=== PATIENT | male | born 1945 | race Hispanic/Latino ===

== ENCOUNTER 2017-05-18 11:24 | Emergency (ER) | payer MEDICARE, BC ==
[2017-05-18 11:49] VITALS: BMI 25.8
[2017-05-18 12:09] VITALS: RESP 18; TEMP 98.2; O2SAT 99
--- NOTE | 2017-05-18 12:11 | ED PDOC ---
Arrival/HPI - General Chief Complaint: Trauma Time Seen by Provider: 05/18/17 11:27 Historian: Patient - History of Present Illness Narrative History of Present Illness (Text): 05/18/17 12:11 A 72 year old male to the emergency department after fall complaining of tremors. Patient states he fell and tripped outside, missed the sidewalk. Patient reports he has been taking new psychiatric medication, which causes tremors. Reports to taking Klonopin medication for these tremors. Denies any loss of consciousness. Denies any pain, fever, headache or any other complaints at this time. Patient lives at home alone. Symptom Onset: Sudden Symptom Course: Unchanged Activities at Onset: Light Context: Street Associated Symptoms (Text): none Past Medical History - Provider Review Nursing Documentation Reviewed: Yes - Infectious Disease Hx of Infectious Diseases: None - Tetanus Immunization Tetanus Immunization: Unknown - Cardiac Hx Hypertension: Yes - Pulmonary Hx Respiratory Disorders: No - Neurological Hx Parkinson's Disease: Yes - HEENT Hx HEENT Disorder: No - Renal Hx Renal Disorder: No - Endocrine/Metabolic Hx Endocrine Disorders: No - Hematological/Oncological Hx Blood Disorders: No - Integumentary Hx Dermatological Disorder: No - Musculoskeletal/Rheumatological Hx Falls: No - Gastrointestinal Hx Gastrointestinal Disorders: No - Genitourinary/Gynecological Hx Genitourinary Disorders: No - Psychiatric Hx Depression: Yes Hx Substance Use: No - Anesthesia Hx Anesthesia: No - Suicidal Assessment Feels Threatened In Home Enviroment: No Family/Social History - Physician Review Nursing Documentation Reviewed: Yes Family/Social History: No Known Family HX Smoking Status: Former Smoker Hx Alcohol Use: No Hx Substance Use: No Hx Substance Use Treatment: No Allergies/Home Meds Allergies/Adverse Reactions: Allergies chlorpromazine [From Thorazine] Allergy (Verified 05/18/17 11:50) REDNESS shaking lamotrigine Allergy (Verified 05/18/17 11:50) RASH THORAZINE Allergy (Severe, Uncoded 09/09/12 16:47) SHAKING Home Medications: Home Meds Medication Instructions Recorded Confirmed ARIPiprazole [Abilify] 1 tab PO HS 05/18/17 05/18/17 Benztropine [Cogentin] 1 tab PO BID 05/18/17 05/18/17 Bupropion HCl [Bupropion Xl] 300 mg PO DAILY 05/18/17 05/18/17 FLUoxetine [Prozac] 1 tab PO DAILY 05/18/17 05/18/17 Simvastatin [Zocor] 1 tab PO DAILY 05/18/17 05/18/17 Valsartan/Hydrochlorothiazide 1 tab PO DAILY 05/18/17 05/18/17 [Diovan Hct 320-25 mg Tablet] amLODIPine [Norvasc] 1 tab PO DAILY 05/18/17 05/18/17 clonazePAM [clonAZEPAM] 1 tab PO BID 05/18/17 05/18/17 Review of Systems - Physician Review All systems were reviewed & negative as marked: Yes - Review of Systems Constitutional: absent: Fevers Neurological: Other (tremor). absent: Headache Physical Exam Vital Signs Reviewed: Yes Vital Signs Temp Pulse Resp BP Pulse Ox 05/18/17 14:02 94 H 18 118/76 99 05/18/17 11:26 98.2 F 101 H 18 124/68 99 Appearance: Positive for: Comfortable, Other (resting tremor) Pain Distress: None Mental Status: Positive for: Alert and Oriented X 3 - Systems Exam Head: Present: Atraumatic, Normocephalic Pupils: Present: PERRL Extroacular Muscles: Present: EOMI Conjunctiva: Present: Normal Mouth: Present: Moist Mucous Membranes Neck: Present: Normal Range of Motion Respiratory/Chest: Present: Clear to Auscultation, Good Air Exchange. No: Respiratory Distress, Accessory Muscle Use Cardiovascular: Present: Regular Rate and Rhythm, Normal S1, S2. No: Murmurs Abdomen: Present: Normal Bowel Sounds. No: Tenderness, Distention, Peritoneal Signs Back: Present: Normal Inspection Upper Extremity: Present: Normal Inspection. No: Cyanosis, Edema Lower Extremity: Present: Normal Inspection. No: Edema Neurological: Present: GCS=15, CN II-XII Intact, Speech Normal, Other (resting tremor) Skin: Present: Warm, Dry, Normal Color. No: Rashes Psychiatric: Present: Alert, Oriented x 3, Normal Insight, Normal Concentration Medical Decision Making ED Course and Treatment: 05/18/17 12:08 Impression: A 72 year old male s/p fall with tremors. Plan: -- Klonopin -- Reassess and disposition Progress Notes: Patient requesting dose of Klonopin and to be discharged home. Offered multiple times lab work and admission, since he lives at home alone, patient refuses. requested pt to get pt eval, for gait dysfunction. he contines to decline. tremores improved s/p klonapin 05/18/17 12:21 Leaving Against Medical Advice (AMA): The patient is choosing to leave against medical advice. I have personally explained to the patient that choosing to do so may result in permanent bodily harm or . I have discussed at great length that without further evaluation and monitoring there may be unforeseen circumstances and/or deterioration causing permanent bodily harm or as a result of their choice. The patient is alert, oriented, and shows the mental capacity to make clear decisions regarding the patients health care at this time. The patient continues to wish to leave against medical advice. The patient has been advised that they should return to the emergency room immediately if they change their mind at any time, or if their condition begins to change or worsen in any way. 05/18/17 15:09 - Medication Orders Current Medication Orders: Discontinued Medications Clonazepam (Klonopin) 1 mg PO STAT STA PRN Reason: Protocol Stop: 05/18/17 11:54 Last Admin: 05/18/17 12:11 Dose: 1 mg - Scribe Statement The provider has reviewed the documentation as recorded by the Oliver Evans Provider Scribe Attestation: All medical record entries made by the Santoshibgaurang were at my direction and personally dictated by me. I have reviewed the chart and agree that the record accurately reflects my personal performance of the history, physical exam, medical decision making, and the department course for this patient. I have also personally directed, reviewed, and agree with the discharge instructions and disposition. Disposition/Present on Arrival - Present on Arrival Any Indicators Present on Arrival: No History of DVT/PE: No History of Uncontrolled Diabetes: No Urinary Catheter: No History of Decub. Ulcer: No History Surgical Site Infection Following: None - Disposition Have Diagnosis and Disposition been Completed?: Yes Diagnosis: Fall, Tremor Disposition: AGAINST MEDICAL ADVICE Disposition Time: 02:00 Condition: UNKNOWN Discharge Instructions (ExitCare): Fall Prevention for Older Adults (GEN), Against Medical Advice (ED) Additional Instructions: you are declining any observation in the hospital, imaging, labs work. you are able to return to any er with any concern at any point Referrals: Preston Branch MD [Primary Care Provider] - Follow up with primary Forms: [employer] (Vietnamese)
[2017-05-18 14:03] VITALS: BP 118/76; PULSE 94
== END 2017-05-18 14:03 | disposition left against medical advice (07) ==
LOC: ED 11:24
DX: R25.1 Tremor, unspecified (principal); W01.0XXA Fall on same level from slipping, tripping and stumbling without subsequent striking against object, initial encounter; I10 Essential (primary) hypertension; Z87.891 Personal history of nicotine dependence; G20 Parkinson's disease

== ENCOUNTER 2017-05-23 12:53 | Inpatient (IN) | payer MEDICARE, BC ==
[2017-05-23 12:54] VITALS: BMI 25.8
[2017-05-23] MEDS ORDERED: Sodium Chloride 0.9% 1,000 ML IV STA ×3 (13:37→14:43)
[2017-05-23 13:50] LABS: VENOUS BLOOD GAS BASE EXCESS 3.1 mmol/L (0.0-2.0); VENOUS BLOOD GAS PO2 30 mm/Hg (30-55); VENOUS BLOOD PH 7.34 (7.32-7.43)
[2017-05-23 13:51] LABS: BASO # 0.03 K/mm3 (0.0-2.0); BASO % 0.1 % (0.0-3.0); EOS # 0.1 (0.0-0.7); EOS % 0.2 % (1.5-5.0); GRAN # 21.32 (1.4-6.5); GRAN % 80.1 % (50.0-68.0); HEMOGLOBIN 14.7 g/dL (14.0-18.0); LYMPH # 3.5 (1.2-3.4); LYMPH % 13.1 % (22.0-35.0); MEAN CELL VOLUME 102.9 fl (80.0-105.0); MEAN CORPUSCULAR HEMOGLOBIN 33.3 pg (25.0-35.0); MEAN CORPUSCULAR HGB CONC 32.3 g/dl (31.0-37.0); MEAN PLATELET VOLUME 11.8 fl (7.0-11.0); MONO # 1.7 (0.1-0.6); MONO % 6.5 % (1.0-6.0); RBC 4.42 10^6/uL (3.5-6.1); RED CELL DISTRIBUTION WIDTH 13.9 % (11.5-14.5)
[2017-05-23 14:01] LABS: ALT/SGPT 63 U/L (7-56); AST/SGOT 59 U/L (17-59); BLOOD UREA NITROGEN 78 mg/dL (7-21); CALCIUM 9.4 mg/dL (8.4-10.5); GFR AFRICAN-AMERICAN 56; GFR NON-AFRICAN AMERICAN 46; MAGNESIUM 2.9 mg/dL (1.7-2.2); WHITE BLOOD COUNT 26.3 10^3/ul (4.5-11.0)
--- NOTE | 2017-05-23 14:06 | ED PDOC ---
Arrival/HPI - General Chief Complaint: Trauma Time Seen by Provider: 05/23/17 13:02 Historian: Patient - History of Present Illness Narrative History of Present Illness (Text): 05/23/17 13:55 A 72 year old male, whose past medical history includes hypertension, chronic schizoprhenia, and depression, brought in by EMS. Patient was found at home on the floor by neighbor. Patient reports he has been on the floor for 3 days and is uncertain why he was unable to get up. Experiencing dehydration. Known to have a psychiatric history as well. Limited HPI and ROS due to patient being a poor historian. he is asking for clonipin which he says he takes normally. PMD: Dr. Branch Past Medical History - Provider Review Nursing Documentation Reviewed: Yes - Infectious Disease Hx of Infectious Diseases: None - Tetanus Immunization Tetanus Immunization: Unknown - Cardiac Hx Hypertension: Yes - Pulmonary Hx Respiratory Disorders: No - Neurological Hx Parkinson's Disease: Yes - HEENT Hx HEENT Disorder: No - Renal Hx Renal Disorder: No - Endocrine/Metabolic Hx Endocrine Disorders: No - Hematological/Oncological Hx Blood Disorders: No - Integumentary Hx Dermatological Disorder: No - Musculoskeletal/Rheumatological Hx Falls: No - Gastrointestinal Hx Gastrointestinal Disorders: No - Genitourinary/Gynecological Hx Genitourinary Disorders: No - Psychiatric Hx Anxiety: Yes Hx Depression: Yes Hx Substance Use: No - Anesthesia Hx Anesthesia: No - Suicidal Assessment Feels Threatened In Home Enviroment: No Family/Social History - Physician Review Nursing Documentation Reviewed: Yes Family/Social History: No Known Family HX Smoking Status: Former Smoker Hx Alcohol Use: No Hx Substance Use: No Hx Substance Use Treatment: No Allergies/Home Meds Allergies/Adverse Reactions: Allergies chlorpromazine [From Thorazine] Allergy (Verified 05/18/17 11:50) REDNESS shaking lamotrigine Allergy (Verified 05/18/17 11:50) RASH THORAZINE Allergy (Severe, Uncoded 09/09/12 16:47) SHAKING Home Medications: Home Meds Medication Instructions Recorded Confirmed ARIPiprazole [Abilify] 1 tab PO HS 05/18/17 05/23/17 Benztropine [Cogentin] 1 tab PO BID 05/18/17 05/23/17 Bupropion HCl [Bupropion Xl] 300 mg PO DAILY 05/18/17 05/23/17 FLUoxetine [Prozac] 1 tab PO DAILY 05/18/17 05/23/17 Simvastatin [Zocor] 1 tab PO DAILY 05/18/17 05/23/17 Valsartan/Hydrochlorothiazide 1 tab PO DAILY 05/18/17 05/23/17 [Diovan Hct 320-25 mg Tablet] amLODIPine [Norvasc] 1 tab PO DAILY 05/18/17 05/23/17 clonazePAM [clonAZEPAM] 1 tab PO BID 05/18/17 05/23/17 Review of Systems - Review of Systems Systems not reviewed;Unavailable: Other (poor historian) Physical Exam Vital Signs Reviewed: Yes Vital Signs Temp Pulse Resp BP Pulse Ox 05/23/17 21:40 83 18 116/68 98 05/23/17 20:40 88 16 110/62 96 05/23/17 19:50 95 H 20 118/69 96 05/23/17 18:00 97.6 F 96 H 19 131/74 98 05/23/17 15:23 90 20 134/71 96 05/23/17 15:00 93 H 18 147/102 H 98 05/23/17 13:13 98.6 F 99 H 19 142/75 98 Temperature: Afebrile Blood Pressure: Normal Pulse: Regular Respiratory Rate: Normal Appearance: Positive for: Other (smells of urine, poor hygiene, appears disheveled and dehydrated) Pain Distress: None Mental Status: Positive for: Alert and Oriented X 3, other (patient is a poor historian) - Systems Exam Head: Present: Swelling (periorbital), Other (skin necrosis to right temporal are) Lower Extremity: Present: Other (ecchymosis to right leg and thorax) Medical Decision Making ED Course and Treatment: 05/23/17 14:00 Impression: 72 year old male found on floor of home by neighbor. Physical exam shows patient appears disheveled, dehydrated, smells of urine, poor hygiene; skin necrosis to right temporal area, periorbital swelling; ecchymosis to right leg and thorax. Plan: -- EKG -- Head CT -- Cervical CT -- Maxillofacial CT -- Chest X-ray -- Labs -- Blood Culture -- Urinalysis -- Farmer Catheter -- IV Fluids -- Venous Blood Gas -- Reassess and disposition Prior Visits: Notes and results from previous visits were reviewed. Patient was last seen in the emergency department on 05/18/2017 for tremors after fall. Patient left AMA. Progress Notes: 05/23/17 14:25 Code Sepsis called. 05/23/2017 14:25 Chest X-Ray IMPRESSION: No active disease. No significant interval change compared to prior examination(s). Dictator: Kev Bartholomew MD 05/23/2017 14:[address] IMPRESSION: No acute intracranial abnormality. Moderate right periorbital soft tissue swelling. Mild chronic microangiopathic changes and moderate age-related global parenchymal volume loss. Dictator: Enid Poe MD 05/23/2017 15:[address] FINDINGS: VERTEBRAE: No fracture. Normal alignment. No destructive bony lesion. DISCS/SPINAL CANAL/NEURAL FORAMINA: No significant central canal or neural foraminal stenosis. Multilevel degenerative changes primarily disc space narrowing C5-6. Multilevel uncovertebral hypertrophy noted. Rotary scoliosis identified. PARASPINAL SOFT TISSUES: Unremarkable. OTHER FINDINGS: None. IMPRESSION: No acute findings related to/accounting for the clinical presentation. Additional benign and/or incidental findings described above. Dictator: Kev Bartholomew MD 05/23/2017 15:[address] FINDINGS: NASAL BONES: Fracture the base of the nasal bone. This is a nondisplaced fracture. The fracture does not extend to the maxilla and adjacent incisors are unaffected. ORBITS: Preseptal soft tissue swelling primarily to the right of the midline. Soft tissue mass lateral to the left globe contiguous with the anterior aspect of the zygoma. This measures 10 x 16 mm. This is not likely to be related to trauma. PARANASAL SINUSES/ MASTOIDS: Clear. MAXILLA: Unremarkable. MANDIBLE/ TEMPOROMANDIBULAR JOINTS: Unremarkable. SKULL BASE: Unremarkable. TEMPORAL BONES: Middle ears and mastoid grossly unremarkable. OTHER FINDINGS: Facial soft tissue swelling centered about the nasal bone fracture and infraorbital regions. There is a component to the right of the midline preseptal soft tissue swelling without globe or retro Conal abnormality on the right. Soft tissue swelling extends laterally to the level of the zygoma, zygomatic arch. No evidence of fracture. IMPRESSION: Acute fractures base of the nasal bone. Soft tissue swelling attests to the acuity of the fracture. Soft tissue swelling which is diffuse described above in greater detail. Incidental cystic mass lateral to the left orbit anterior to the zygoma. Dictator: Kev Bartholomew MD - Critical Care Critical Care Minutes: Other (35 minutes) Narrative Critical Care (Text): 05/23/17 15:33 pt with AMS with severe hypernatremia and numerous statis dermatitis/ulcers. concern for rhabdo as well. noted leukocytosis CXR clear, possible UTI vs cellulitis. treated with broad spectrum abx for sepsis. also tremulous concern for benzodiazepine withdrawl given iv ativan. CT head neg for acute infarct/bleed. will obtain icu consult pt gently rehydrated and admited for severe hypernatremia and likely impending rhabdomyolysis 05/26/17 19:58 - Lab Interpretations Narrative Lab Interpretation (Text): 05/23/17 15:30 severe hypernatremia, presumed acute due to dehydation. severe leukocytosis. moderate hypermagnesimia. Microbiology Results: Microbiology Results 05/23/17 13:30 Blood S.aureus & Coag-Neg Staph PNA FISH - Final 05/23/17 13:30 Blood Blood Culture - Final Coagulase Neg Staphylococcus 05/23/17 13:30 Blood Gram Stain - Final 05/23/17 13:45 Blood Blood Culture - Preliminary NO GROWTH AFTER 3 DAYS 05/23/17 13:45 Urine,Farmer Urine Culture - Final No Growth (<1,000 CFU/ML) Lab Results: 05/23/17 13:30 05/23/17 13:30 Lab Results 05/23/17 14:00: Urine Color Yellow, Urine Appearance Clear, Urine pH 5.5, Ur Specific Merriman 1.015, Urine Protein Trace H, Urine Glucose (UA) Negative, Urine Ketones Trace H, Urine Blood Moderate H, Urine Nitrate Negative, Urine Bilirubin Negative, Urine Urobilinogen 0.2, Ur Leukocyte Esterase Moderate H, Urine RBC 0 - 2, Urine WBC 2 - 5, Ur Epithelial Cells 0 - 2, Urine Bacteria Large 05/23/17 13:45: Urine Opiates Screen Negative, Urine Methadone Screen Negative, Ur Barbiturates Screen Negative, Ur Phencyclidine Scrn Negative, Ur Amphetamines Screen Negative, U Benzodiazepines Scrn Negative, U Oth Cocaine Metabols Negative, U Cannabinoids Screen Negative 05/23/17 13:30: Alcohol, Quantitative < 10 05/23/17 13:30: Phosphorus 4.0 05/23/17 13:30: pO2 30, VBG pH 7.34, VBG pCO2 56.0, VBG HCO3 30.2 H, VBG Total CO2 31.9 H, VBG O2 Sat (Calc) 58.5, VBG Base Excess 3.1 H, VBG Potassium 3.9, Sodium 158.0 H, Chloride 120.0 H, Glucose 151 H, Lactate 2.3 H, FiO2 21.0, Venous Blood Potassium 3.9 05/23/17 13:30: WBC 26.3 H*, RBC 4.42, Hgb 14.7, Hct 45.5, MCV 102.9, MCH 33.3, MCHC 32.3, RDW 13.9, Plt Count 294, MPV 11.8 H, Gran % 80.1 H, Lymph % (Auto) 13.1 L, Jones % (Auto) 6.5 H, Eos % (Auto) 0.2 L, Baso % (Auto) 0.1, Gran # 21.32 H, Lymph # 3.5 H, Jones # 1.7 H, Eos # 0.1, Baso # 0.03 05/23/17 13:30: Sodium 161 H*, Chloride 118 H, Potassium 3.7, Carbon Dioxide 28 , Anion Gap 20, BUN 78 H, Creatinine 1.5, Est GFR ( Amer) 56, Est GFR ( Non-Af Amer) 46, Random Glucose 150 H, Calcium 9.4, Magnesium 2.9 H, Total Bilirubin 0.6, AST 59, ALT 63 H, Alkaline Phosphatase 107, Total Creatine Kinase 779 H, CK-MB (CK-2) 3.2, CK-MB (CK-2) % Cancelled, Troponin I < 0.01, Total Protein 7.8, Albumin 4.0, Globulin 3.8, Albumin/Globulin Ratio 1.0 L I have reviewed the lab results: Yes - RAD Interpretation Radiology Orders: 05/23/17 13:35 X-RAY [CHEST PORTABLE] [RAD] Stat 05/23/17 14:00 CERVICAL SPINE W/O CONTRAST [CT] Stat HEAD W/O CONTRAST [CT] Stat MAXILLOFACIAL W/O CONTRAST [CT] Stat - Medication Orders Current Medication Orders: Aripiprazole (Abilify) 10 mg PO HS ALEXIA PRN Reason: Protocol Last Admin: 05/25/17 21:32 Dose: 10 mg Behavioural Document 05/25/17 21:32 IMT (Rec: 05/25/17 21:33 IMT [id number]) Maintenance Maintenance Dose Yes Nonmedicinal Nonmedicinal Interventions Redirect Behavior Behavior for Medication: Anxiety Insomnia Re-Assess: Reassess Psych Meds Document 05/25/17 22:32 IMT (Rec: 05/26/17 04:21 IMT [id number]) Reassess Psych Med Effective Benztropine Mesylate (Cogentin) 0.5 mg PO BID ALEXIA Last Admin: 05/26/17 17:16 Dose: 0.5 mg Bupropion HCl (Wellbutrin Xl) 300 mg PO DAILY ALEXIA Last Admin: 05/26/17 10:57 Dose: 300 mg Clonazepam (Klonopin) 1 mg PO BID ALEXIA PRN Reason: Protocol Last Admin: 05/26/17 17:16 Dose: 1 mg Behavioural Document 05/26/17 17:16 MCV (Rec: 05/26/17 17:16 MCV [facility] [id number]) Behavior Behavior for Medication: Anxiety Continuous pacing/restlessness Fluoxetine HCl (Prozac) 20 mg PO DAILY ALEXIA Last Admin: 05/26/17 10:57 Dose: 20 mg Cefepime HCl (Maxipime 1gm) 1 gm in 100 mls @ 100 mls/hr IVPB Q12 ALEXIA PRN Reason: Protocol Last Admin: 05/26/17 10:57 Dose: 100 mls/hr eMAR Start Stop Document 05/26/17 10:57 MCV (Rec: 05/26/17 10:57 MCV [id number]) Intravenous Solution Start Date 05/26/17 Start Time 10:57 Vancomycin HCl (Vancomycin 500mg In Ns) 500 mg in 100 mls @ 200 mls/hr IVPB Q12 ALEXIA PRN Reason: Protocol Last Admin: 05/26/17 10:57 Dose: 200 mls/hr eMAR Start Stop Document 05/26/17 10:57 MCV (Rec: 05/26/17 10:58 MCV [id number]) Intravenous Solution Start Date 05/26/17 Start Time 10:58 Mupirocin (Bactroban Ointment) 0 gm TOP BID ALEXIA Last Admin: 05/26/17 17:18 Dose: 1 applic Pantoprazole Sodium (Protonix Ec Tab) 40 mg PO 0600 ALEXIA Last Admin: 05/26/17 06:00 Dose: Not Given Non-Admin Reason: Patient Refused Discontinued Medications Sodium Chloride (Sodium Chloride 0.9%) 1,000 mls @ 999 mls/hr IV .Q1H1M STA Stop: 05/23/17 14:37 Last Admin: 05/23/17 14:06 Dose: 999 mls/hr eMAR Start Stop Document 05/23/17 14:06 LA (Rec: 05/23/17 14:07 LA [facility] [id number]) Intravenous Solution Start Date 05/23/17 Start Time 14:06 Sodium Chloride (Sodium Chloride 0.9%) 1,000 mls @ 999 mls/hr IV .Q1H1M STA Stop: 05/23/17 14:38 Last Admin: 05/23/17 14:07 Dose: 999 mls/hr eMAR Start Stop Document 05/23/17 14:07 LA (Rec: 05/23/17 14:07 LA [facility] [id number]) Intravenous Solution Start Date 05/23/17 Start Time 14:07 Cefepime HCl (Maxipime 2gm) 2 gm in 100 mls @ 100 mls/hr IVPB STAT STA PRN Reason: Protocol Stop: 05/23/17 15:10 Last Admin: 05/23/17 14:50 Dose: 100 mls/hr eMAR Start Stop Document 05/23/17 14:50 SRE (Rec: 05/23/17 15:02 SRE [id number]) Intravenous Solution Start Date 05/23/17 Start Time 14:50 End Date 05/23/17 End time 15:50 Total Infusion Time 60 Sodium Chloride (Sodium Chloride 0.9%) 1,000 mls @ 999 mls/hr IV .Q1H1M STA Stop: 05/23/17 15:43 Last Admin: 05/23/17 15:03 Dose: 999 mls/hr eMAR Start Stop Document 05/23/17 15:03 SRE (Rec: 05/23/17 15:03 SRE [id number]) Intravenous Solution Start Date 05/23/17 Start Time 15:03 End Date 05/23/17 End time 14:05 Total Infusion Time -58 Dextrose (Dextrose 5% In Water 1000 Ml) 1,000 mls @ 150 mls/hr IV .Q6H40M [facility] Last Admin: 05/24/17 01:25 Dose: 150 mls/hr eMAR Start Stop Document 05/24/17 01:25 PD (Rec: 05/24/17 01:40 PD [facility] [id number]) Intravenous Solution Start Date 05/24/17 Start Time 01:25 Vancomycin HCl (Vancomycin 1gm) 1 gm in 250 mls @ 167 mls/hr IVPB STAT STA PRN Reason: Protocol Stop: 05/23/17 17:53 Last Admin: 05/23/17 16:44 Dose: 167 mls/hr eMAR Start Stop Document 05/23/17 16:44 LA (Rec: 05/23/17 16:44 LA [facility] [id number]) Intravenous Solution Start Date 05/23/17 Start Time 16:44 Cefepime HCl 0.5 gm/ Sodium (Chloride) 100 mls @ 100 mls/hr IVPB Q12H ALEXIA PRN Reason: Protocol Last Admin: 05/23/17 20:26 Dose: Dextrose (Dextrose 5% In Water 1000 Ml) 1,000 mls @ 100 mls/hr IV .Q10H ALEXIA Last Admin: 05/25/17 09:21 Dose: 100 mls/hr eMAR Start Stop Document 05/25/17 09:21 DL (Rec: 05/25/17 09:21 DL [facility] [id number]) Intravenous Solution Start Date 05/25/17 Start Time 09:21 Potassium Chloride (Potassium Chloride 10 Meq/100 Ml) 10 meq in 100 mls @ 50 mls/hr IVPB Q2H ALEXIA Stop: 05/25/17 12:59 Last Admin: 05/25/17 12:55 Dose: 50 mls/hr eMAR Start Stop Document 05/25/17 12:55 DL (Rec: 05/25/17 12:55 DL [facility] [id number]) Intravenous Solution Start Date 05/25/17 Start Time 12:55 Lorazepam (Ativan) 2 mg IVP ONCE ONE PRN Reason: Protocol Stop: 05/23/17 15:02 Last Admin: 05/23/17 15:05 Dose: 2 mg IVP Administration Document 05/23/17 15:05 SRE (Rec: 05/23/17 15:05 SRE [id number]) Charges for Administration # of IVP Administrations 1 Potassium Chloride (Potassium Chloride Oral Soln) 40 meq PO STAT STA Stop: 12/28/17 19:00 Last Admin: 05/25/17 19:07 Dose: 40 meq - Scribe Statement The provider has reviewed the documentation as recorded by the Oliver Johnson Provider Scribe Attestation: All medical record entries made by the Santoshibgaurang were at my direction and personally dictated by me. I have reviewed the chart and agree that the record accurately reflects my personal performance of the history, physical exam, medical decision making, and the department course for this patient. I have also personally directed, reviewed, and agree with the discharge instructions and disposition. Disposition/Present on Arrival - Present on Arrival Any Indicators Present on Arrival: Yes History of DVT/PE: No History of Uncontrolled Diabetes: No Urinary Catheter: No History of Decub. Ulcer: Yes (new ulcers upon admission from stasis) History Surgical Site Infection Following: None - Disposition Have Diagnosis and Disposition been Completed?: Yes Diagnosis: Hypernatremia Disposition: HOSPITALIZED Disposition Time: 20:00 Patient Plan: ICU Condition: CRITICAL
[2017-05-23 14:08] LABS: TROPONIN I < 0.01 ng/mL
[2017-05-23] MEDS ORDERED: Cefepime IV 2 gm in NS 2 GM/100 ML BAG IVPB STA (14:11)
[2017-05-23 14:14] LABS: CK-MB 3.2 ng/mL (0.0-3.6)
--- NOTE | 2017-05-23 14:27 | RAD ---
HISTORY: AMS COMPARISON: 09/09/2012 FINDINGS: LUNGS: No active pulmonary disease. PLEURA: No significant pleural effusion identified, no pneumothorax apparent. CARDIOVASCULAR: No radiographic findings to suggest acute or significant cardiovascular disease. OSSEOUS STRUCTURES: No significant abnormalities. VISUALIZED UPPER ABDOMEN: Normal. OTHER FINDINGS: None. IMPRESSION: No active disease. No significant interval change compared to the prior examination(s).
--- NOTE | 2017-05-23 14:45 | CT ---
PROCEDURE: CT HEAD WITHOUT CONTRAST. HISTORY: Fall COMPARISON: None available. TECHNIQUE: Axial computed tomography images were obtained through the head/brain without intravenous contrast. Radiation dose: Total exam DLP = 873.41 mGy-cm. This CT exam was performed using one or more of the following dose reduction techniques: Automated exposure control, adjustment of the mA and/or kV according to patient size, and/or use of iterative reconstruction technique. FINDINGS: HEMORRHAGE: No intracranial hemorrhage. BRAIN: There are mild chronic microangiopathic changes. There is no mass, mass effect or abnormal extra-axial fluid collection. There is no territorial infarction. VENTRICLES: There is moderate age-related global parenchymal volume loss and proportionate enlargement of the ventricles and cortical sulci. CALVARIUM: There is no calvarial fracture or extracranial soft tissue swelling. There is moderate right periorbital soft tissue swelling. PARANASAL SINUSES: Predominantly clear. MASTOID AIR CELLS: Predominantly clear. OTHER FINDINGS: None. IMPRESSION: No acute intracranial abnormality. Moderate right periorbital soft tissue swelling. Mild chronic microangiopathic changes and moderate age-related global parenchymal volume loss.
--- NOTE | 2017-05-23 15:26 | CT ---
PROCEDURE: CT Cervical Spine without contrast HISTORY: Recent trauma COMPARISON: None available. TECHNIQUE: Axial computed tomography images were obtained of the cervical spine without the use of intravenous contrast. Coronal and sagittal reformatted images were created and reviewed. Radiation dose: Total exam DLP = 635.45 mGy-cm. This CT exam was performed using one or more of the following dose reduction techniques: Automated exposure control, adjustment of the mA and/or kV according to patient size, and/or use of iterative reconstruction technique. FINDINGS: VERTEBRAE: No fracture. Normal alignment. No destructive bony lesion. DISCS/SPINAL CANAL/NEURAL FORAMINA: No significant central canal or neural foraminal stenosis. Multilevel degenerative changes primarily disc space narrowing C5-6. Multilevel uncovertebral hypertrophy noted. Rotary scoliosis identified. PARASPINAL SOFT TISSUES: Unremarkable. OTHER FINDINGS: None. IMPRESSION: No acute findings related to/accounting for the clinical presentation. Additional benign and/or incidental findings described above.
--- NOTE | 2017-05-23 15:48 | CT ---
PROCEDURE: CT MAXILLOFACIAL BONES WITHOUT CONTRAST HISTORY: fall COMPARISON: None TECHNIQUE: Contiguous axial CT images of the maxillofacial bones were obtained. Coronal and sagittal reformats were generated. Radiation dose: Total exam DLP = 740.48 mGy-cm. This CT exam was performed using one or more of the following dose reduction techniques: Automated exposure control, adjustment of the mA and/or kV according to patient size, and/or use of iterative reconstruction technique. FINDINGS: NASAL BONES: Fracture the base of the nasal bone. This is a nondisplaced fracture. The fracture does not extend to the maxilla and adjacent incisors are unaffected. ORBITS: Preseptal soft tissue swelling primarily to the right of the midline. Soft tissue mass lateral to the left globe contiguous with the anterior aspect of the zygoma. This measures 10 x 16 mm. This is not likely to be related to trauma. PARANASAL SINUSES/ MASTOIDS: Clear. MAXILLA: Unremarkable. MANDIBLE/ TEMPOROMANDIBULAR JOINTS: Unremarkable. SKULL BASE: Unremarkable. TEMPORAL BONES: Middle ears and mastoid grossly unremarkable. OTHER FINDINGS: Facial soft tissue swelling centered about the nasal bone fracture and infraorbital regions. There is a component to the right of the midline preseptal soft tissue swelling without globe or retro Conal abnormality on the right. Soft tissue swelling extends laterally to the level of the zygoma, zygomatic arch. No evidence of fracture. IMPRESSION: Acute fracture base of the nasal bone. Soft tissue swelling attests to the acuity of the fracture. Soft tissue swelling which is diffuse described above in greater detail. Incidental cystic mass lateral to the left orbit anterior to the zygoma.
[2017-05-23 16:03] LABS: BARBITURATES, UR NEGATIVE (NEGATIVE); BENZODIAZEPINES, UR NEGATIVE (NEGATIVE); OPIATES, UR NEGATIVE (NEGATIVE); PHENCYCLIDINE, UR NEGATIVE (NEGATIVE)
[2017-05-23 16:18] LABS: PH,URINE 5.5 (4.7-8.0); URINE APPEARANCE CLEAR (CLEAR); URINE BILIRUBIN NEGATIVE (NEGATIVE); URINE BLOOD MODERATE (NEGATIVE); URINE COLOR YELLOW (YELLOW); URINE GLUCOSE (UA) NEGATIVE (NEGATIVE); URINE LEUKOCYTE ESTERASE MODERATE Leu/uL (NEGATIVE); URINE NITRATE NEGATIVE (NEGATIVE); URINE PROTEIN TRACE mg/dL (<30 mg/dL); URINE UROBILINOGEN 0.2 E.U./dL (<1 E.U./dL)
[2017-05-23] MEDS ORDERED: Vancomycin 1gm in NS 250ml 1 GM/250 ML BAG IVPB STA (16:24)
[2017-05-23 16:41] LABS: URINE BACTERIA LARGE (NEG); URINE EPITHELIAL CELLS 0 - 2 /hpf (0-5); URINE RBC 0 - 2 /hpf (0-2)
[2017-05-23 16:51] LABS: VENOUS BLOOD GAS BASE EXCESS -0.5 mmol/L (0.0-2.0); VENOUS BLOOD GAS PO2 28 mm/Hg (30-55); VENOUS BLOOD PH 7.32 (7.32-7.43)
--- NOTE | 2017-05-23 17:37 | CARD ---
APPROVED REPORT EKG Measurement Heart [id number] <Conclusion> Normal sinus rhythm ST abnormality, possible digitalis effect Abnormal ECG
[2017-05-23 18:59] LABS: BLOOD UREA NITROGEN 63 mg/dL (7-21); CALCIUM 7.8 mg/dL (8.4-10.5); GFR AFRICAN-AMERICAN > 60; GFR NON-AFRICAN AMERICAN 60
--- NOTE | 2017-05-23 19:13 | PCM.SEPTIC ---
Sepsis Progress Note - Reassessment Type Date of Evaluation: 05/23/17 Time of Evaluation: 19:12 Reassessment Type: Non-invasive reassessment - Non Invasive Reassessment Were the most recent vital sign reviewed: Yes Vital Sign (Latest): Temp Pulse Resp BP Pulse Ox 97.6 F 96 H 19 131/74 98 05/23/17 18:00 05/23/17 18:00 05/23/17 18:00 05/23/17 18:00 05/23/17 18:00 Cardiovascular: Yes: Regular Rate, Rhythm, Chest Non Tender, Murmur ( holosystolic murmur most prominent along left sternal border with midsystolic click). No: Bradycardia, Tachycardia, Irregularly Irregular Respiratory: Yes: Other (Decreased breath sounds in all richard, absent breath sounds in right upper richard (pt reports R upper lobe surgically removed ~10 yrs ago)) Capillary Refill: Normal (Less than 2 sec) Pulses: Normal Radial, Normal Dorsalis Pedis, Normal Posterior Tibialis Skin: Normal Color, Warm, Dry
[2017-05-23] MEDS ORDERED: Cefepime 0.5 GM in Sodium Chloride 0.9% 100 ML IVPB SCH (19:15)
[2017-05-23] MEDS: Cefepime 1gm in NS 100ml 1 GM/100 ML BAG IVPB SCH (21:15)
[2017-05-23] MEDS: Vancomycin 500mg in NS 500 MG/100 ML BAG IVPB SCH (22:27)
[2017-05-23 23:18] LABS: BLOOD UREA NITROGEN 57 mg/dL (7-21); CALCIUM 7.9 mg/dL (8.4-10.5); GFR AFRICAN-AMERICAN > 60; GFR NON-AFRICAN AMERICAN > 60
--- NOTE | 2017-05-24 00:30 | HP ---
HISTORY OF PRESENT ILLNESS: The patient is a 72-year-old, who was brought to Emergency Room after he was found to have alerted mental status. He was found by his neighbors on floor and he was confused and disoriented. The patient states he was very weak, was unable to get up or anything. He was very lethargic. Because of above reason, he was brought to Emergency Room. Denies any headache. No nausea or vomiting. Complains of generalized weakness. PAST MEDICAL HISTORY: Significant for: 1. Hypertension. 2. Hyperlipidemia. 3. Schizophrenia, bipolar disorder. ALLERGIES: HE IS ALLERGIC TO CHLORPROMAZINE, LAMOTRIGINE, AND THORAZINE. MEDICATION AT HOME: He is on Klonopin 1 mg twice a day, amlodipine 10 mg daily, valsartan 320 daily, simvastatin 20 mg daily, Prozac, bupropion, Cogentin, and Abilify. The patient is being followed by Dr. Carroll as outpatient. SOCIAL HISTORY: He lives by himself. He was heavy smoking. PHYSICAL EXAMINATION: GENERAL: He is sleepy, but arousable. VITAL SIGNS: He is afebrile, pulse , respiration rate 19, and blood pressure 134/71. LUNGS: Bilateral fair airflow. No rhonchi or crackle. HEART: S1 and S2 audible. ABDOMEN: Soft and nontender. No rebound. No guarding. NEUROLOGIC: The patient is sleepy, but arousable. LABORATORY EXAMINATION: WBC 26.3, hemoglobin 14.7, hematocrit 45, and platelet of 294. Chemistry: Sodium 161, potassium 3.7, chloride 118, CO2 of 28, BUN 78, creatinine 1.5, blood sugar of 150. LFTs are within normal limits. ALT 63. CPK 779. Urine shows large leukocyte, and urine tox is negative. ASSESSMENT: 1. Alerted mental status. 2. Hypernatremia. 3. Leukocytosis, rule out underlying sepsis. 4. Hypertension. 5. Hyperlipidemia. 6. Paranoid schizophrenia. 7. Bipolar disorder. PLAN: The patient is going to be admitted in ICU. We will start IV fluid and start him with IV antibiotics. Blood cultures and urine cultures are sent. We will request Dr. Rodriguez for evaluation. We will also request Dr. Carroll to adjust his psych medications. Preston Branch MD
[2017-05-24 01:38] LABS: VENOUS BLOOD GAS BASE EXCESS 0.1 mmol/L (0.0-2.0); VENOUS BLOOD GAS PO2 30 mm/Hg (30-55)
--- NOTE | 2017-05-24 02:55 | CON ---
DATE: 05/23/2017 HISTORY OF PRESENT ILLNESS: This is a 72-year-old gentleman with history of schizophrenia, hypertension, depression, who brought in [facility] ER when found unresponsive on the floor of his apartment by neighbor. The patient unable to provide story why he was not able to wake up and get up. The patient was found to have severe hypernatremia on subsequent workup in the emergency room. He is somewhat sluggish; however, alert, awake, comfortable and oriented x3. No fever, no chills, no sweats. No nausea, no vomiting, diarrhea, no constipation. PAST MEDICAL HISTORY: Hypertension, chronic schizophrenia, depression. FAMILY HISTORY: Noncontributory. SOCIAL HISTORY: No alcohol or illicit drug abuse. No current tobacco smoking; however, used to smoke tobacco in the past. ALLERGIES: THORAZINE, LAMOTRIGINE. HOME MEDICATIONS: Abilify, Cogentin, bupropion, Prozac, Zocor, valsartan, hydrochlorothiazide, amlodipine, clonazepam. REVIEW OF SYSTEMS: Review of 12-organ system other than mentioned in the history of present illness is negative. PHYSICAL EXAMINATION: VITAL SIGNS: Temperature 98.6, heart rate 90, blood pressure 134/71, respiratory rate 20, oxygen saturation 96% on room air. HEENT: There is a substantial soft tissue swelling on the right eye. The patient also has nasal fracture. LUNGS: Clear to auscultation bilaterally. HEART: Regular rate and rhythm. S1, S2 normal. ABDOMEN: Soft, nontender, nondistended. MUSCULOSKELETAL: Trace bilateral pedal and ankle edema. NEURO: The patient moves all extremities spontaneously. SKIN: Moist. PSYCH: The patient is sluggish, but alert, awake and oriented x3. LABORATORY DATA: WBC 26.3, hemoglobin 14.7, platelet count 294. Sodium 161, potassium 3.7, chloride 118, carbon dioxide 28, BUN 78, creatinine 1.5, phosphorus 4, glucose 115, AST 59, ALT 63, bilirubin 0.6. Troponin less than 0.01. CPK 779. VBG showed lactic acid 2.3 and pH 7.34. Urine positive for leukocyte esterase, but negative for nitrites. The patient received cefepime and 3 liters of normal saline bolus in the ER. ASSESSMENT AND PLAN: This is a 72-year-old gentleman with hypovolemic shock due to poor p.o. intake and hydration. At the present time, we will proceed with isotonic crystalloid bolus and then with D5W maintenance IV fluid. We will continue with BMP every 6 hours. The patient has leukocytosis and urinalysis positive for leukocyte esterase, thus blood culture, urine culture and procalcitonin will be ordered and the patient will be started on vancomycin and cefepime. The patient has acute kidney injury, which expected to improve with fluid resuscitation and treating underlying sepsis. Most likely, acute kidney injury related to acute tubular necrosis due to sepsis and dehydration. We will maintain mean arterial pressure more than 65, euvolemia, euglycemia, and avoiding nephrotoxic medication but not at expense of treatment of underlying disease. Speech and swallow evaluation until then n.p.o. We will maintain blood glucose within 140 to 180 range according to NICE-SUGAR trial. We will continue to trend lactic acid. We will continue to correct electrolytes. We will continue with deep venous thrombosis, gastrointestinal prophylaxis. Wil Estrella MD
[2017-05-24 07:23] LABS: BASO # 0.02 K/mm3 (0.0-2.0); BASO % 0.1 % (0.0-3.0); EOS # 0.6 (0.0-0.7); GRAN # 13.41 (1.4-6.5); LYMPH # 3.4 (1.2-3.4); LYMPH % 18.3 % (22.0-35.0); MEAN CELL VOLUME 103.5 fl (80.0-105.0); MEAN CORPUSCULAR HEMOGLOBIN 31.9 pg (25.0-35.0); MEAN CORPUSCULAR HGB CONC 30.8 g/dl (31.0-37.0); MEAN PLATELET VOLUME 12.2 fl (7.0-11.0); MONO # 1.2 (0.1-0.6); MONO % 6.6 % (1.0-6.0); RBC 3.76 10^6/uL (3.5-6.1); RED CELL DISTRIBUTION WIDTH 14.3 % (11.5-14.5); WHITE BLOOD COUNT 18.6 10^3/ul (4.5-11.0)
[2017-05-24 07:42] LABS: BLOOD UREA NITROGEN 47 mg/dL (7-21); CALCIUM 7.9 mg/dL (8.4-10.5); GFR AFRICAN-AMERICAN > 60; GFR NON-AFRICAN AMERICAN > 60
[2017-05-24 07:53] LABS: CK-MB 2.3 ng/mL (0.0-3.6)
[2017-05-24] MEDS ORDERED: buPROPion 150 mg/24 Hours XL Tab PO SCH (10:00)
[2017-05-24] MEDS: Cefepime 1gm in NS 100ml 1 GM/100 ML BAG IVPB SCH ×2 (10:10→23:44)
[2017-05-24] MEDS: Vancomycin 500mg in NS 500 MG/100 ML BAG IVPB SCH ×2 (10:10→22:27)
[2017-05-24 10:38] LABS: BLOOD UREA NITROGEN 39 mg/dL (7-21); GFR AFRICAN-AMERICAN > 60; GFR NON-AFRICAN AMERICAN > 60
[2017-05-24] MEDS: buPROPion 300 mg/24 Hours XL Tab PO SCH (11:31)
--- NOTE | 2017-05-24 12:04 | CP.CCUPN ---
<Deniz Bush - Last Filed: 05/24/17 11:53> CCU Subjective - Physician Review Subjective (Free Text): Patient seen and examined at bedside. Patient with no acute overnight events and no complaints at this time. Denies Chest pain, shortness of breath, nausea, vomiting, diarrhea, headache, weakness. CCU Objective - Vital Signs / Intake & Output Vital Signs (Last 4 hours): Vital Signs Temp Pulse Resp BP Pulse Ox 05/24/17 09:40 87 12 97 05/24/17 09:30 97 H 22 98 05/24/17 09:20 84 13 96 05/24/17 09:10 98 H 11 L 98 05/24/17 09:00 97.7 F 73 19 141/81 98 05/24/17 08:50 84 12 99 05/24/17 08:40 87 13 100 05/24/17 08:30 83 97 05/24/17 08:20 87 29 H 98 05/24/17 08:10 84 11 L 100 05/24/17 08:03 90 14 176/105 H 96 05/24/17 08:01 108 H 22 176/87 H 90 L 05/24/17 08:00 93 H 42 H 97 Intake and Output (Last 8hrs): Intake & Output 05/23/17 05/24/17 05/24/17 22:59 06:59 14:59 Intake Total 300 Output Total 500 Balance -200 Weight 180 lb Intake: IV 300 Output: Urine 500 Other: Voiding Method Indwelling Catheter - Physical Exam Head: Positive for: Swelling (periorbital), Ecchymosis, Other (skin necrosis to right temporal are) Respiratory/Chest: Positive for: Clear to Auscultation, Good Air Exchange, Accessory Muscle Use Cardiovascular: Positive for: Regular Rate and Rhythm, Normal S1, S2 Abdomen: Positive for: Normal Bowel Sounds. Negative for: Tenderness, Distention Upper Extremity: Positive for: Normal Inspection Lower Extremity: Positive for: Normal Inspection, Other (ecchymosis to right leg and thorax) Neurological: Positive for: GCS=15, CN II-XII Intact. Negative for: Speech Normal Skin: Positive for: Warm, Normal Color Psychiatric: Positive for: Alert, Oriented x 3, Normal Insight, Normal Concentration - Medications Active Medications: Active Medications Generic Name Dose Route Start Last Admin Trade Name Freq PRN Reason Stop Dose Admin Aripiprazole 10 mg 05/23/17 22:00 05/23/17 23:49 Abilify PO 10 mg HS ALEXIA Administration Protocol Benztropine Mesylate 0.5 mg 05/23/17 19:00 05/24/17 10:16 Cogentin PO 0.5 mg BID ALEXIA Administration Bupropion HCl 300 mg 05/24/17 10:00 05/24/17 11:31 Wellbutrin Xl PO 300 mg DAILY ALEXIA Administration Clonazepam 1 mg 05/23/17 19:00 05/24/17 10:14 Klonopin PO 1 mg BID ALEXIA Administration Protocol Fluoxetine HCl 20 mg 05/24/17 10:00 05/24/17 10:14 Prozac PO 20 mg DAILY ALEXIA Administration Dextrose 1,000 mls @ 150 mls/hr 05/23/17 16:30 05/24/17 01:25 Dextrose 5% In Water 1000 Ml IV 150 mls/hr .[id number] ALEXIA Administration Cefepime HCl 1 gm in 100 mls @ 100 mls/hr 05/23/17 22:00 05/24/17 10:10 Maxipime 1gm IVPB 100 mls/hr Q12 ALEXIA Administration Protocol Vancomycin HCl 500 mg in 100 mls @ 200 mls/hr 05/23/17 22:00 05/24/17 10:10 Vancomycin 500mg In Ns IVPB 200 mls/hr Q12 ALEXIA Administration Protocol - Patient Studies Lab Studies: Lab Studies 05/24/17 05/24/17 05/24/17 Range/Units 10:20 06:00 06:00 WBC 18.6 H D (4.5-11.0) 10^3/ul RBC 3.76 (3.5-6.1) 10^6/uL Hgb 12.0 L D (14.0-18.0) g/dL Hct 38.9 L (42.0-52.0) % MCV 103.5 (80.0-105.0) fl MCH 31.9 (25.0-35.0) pg MCHC 30.8 L (31.0-37.0) g/dl RDW 14.3 (11.5-14.5) % Plt Count 212 (120.0-450.0) 10^3/uL MPV 12.2 H (7.0-11.0) fl Gran % 72.0 H (50.0-68.0) % Lymph % (Auto) 18.3 L (22.0-35.0) % [place] % (Auto) 6.6 H (1.0-6.0) % Eos % (Auto) 3.0 (1.5-5.0) % Baso % (Auto) 0.1 (0.0-3.0) % Gran # 13.41 H (1.4-6.5) Lymph # 3.4 (1.2-3.4) [place] # 1.2 H (0.1-0.6) Eos # 0.6 (0.0-0.7) Baso # 0.02 (0.0-2.0) K/mm3 pO2 (30-55) mm/Hg VBG pH (7.32-7.43) VBG pCO2 (40-60) VBG HCO3 (21-28) mmol/l VBG Total CO2 (22-28) mmol.L VBG O2 Sat (Calc) (40-65) % VBG Base Excess (0.0-2.0) mmol/L VBG Potassium (3.6-5.2) mmol/L Sodium 154 H 156 H* (132-148) mmol/L Chloride 120 H 121 H (98-107) mmol/L Glucose (75-110) mg/dl Lactate (0.7-2.1) mmol/L FiO2 % Potassium 3.3 L 3.6 (3.6-5.0) mmol/L Carbon Dioxide 24 27 (21-33) mmol/L Anion Gap 13 11 (10-20) BUN 39 H 47 H (7-21) mg/dL Creatinine 1.1 1.1 (0.8-1.5) mg/dl Est GFR ( Amer) > 60 > 60 Est GFR (Non-Af Amer) > 60 > 60 Random Glucose 121 H 106 (70-110) mg/dL Calcium 8.0 L 7.9 L (8.4-10.5) mg/dL Total Creatine Kinase 499 H (35-230) U/L CK-MB (CK-2) 2.3 (0.0-3.6) ng/mL CK-MB (CK-2) % Cancelled Venous Blood Potassium (3.6-5.2) mmol/L 05/24/17 05/23/17 05/23/17 Range/Units 01:10 22:30 17:50 WBC (4.5-11.0) 10^3/ul RBC (3.5-6.1) 10^6/uL Hgb (14.0-18.0) g/dL Hct (42.0-52.0) % MCV (80.0-105.0) fl MCH (25.0-35.0) pg MCHC (31.0-37.0) g/dl RDW (11.5-14.5) % Plt Count (120.0-450.0) 10^3/uL MPV (7.0-11.0) fl Gran % (50.0-68.0) % Lymph % (Auto) (22.0-35.0) % [place] % (Auto) (1.0-6.0) % Eos % (Auto) (1.5-5.0) % Baso % (Auto) (0.0-3.0) % Gran # (1.4-6.5) Lymph # (1.2-3.4) [place] # (0.1-0.6) Eos # (0.0-0.7) Baso # (0.0-2.0) K/mm3 pO2 30 (30-55) mm/Hg VBG pH 7.30 L (7.32-7.43) VBG pCO2 56.0 (40-60) VBG HCO3 27.6 (21-28) mmol/l VBG Total CO2 29.3 H (22-28) mmol.L VBG O2 Sat (Calc) 56.4 (40-65) % VBG Base Excess 0.1 (0.0-2.0) mmol/L VBG Potassium 3.7 (3.6-5.2) mmol/L Sodium 157.0 H 155 H 159 H* (132-148) mmol/L Chloride 122.0 H 123 H 124 H (98-107) mmol/L Glucose 138 H (75-110) mg/dl Lactate 1.9 (0.7-2.1) mmol/L FiO2 21.0 % Potassium 3.8 3.7 (3.6-5.0) mmol/L Carbon Dioxide 24 26 (21-33) mmol/L Anion Gap 12 11 (10-20) BUN 57 H 63 H (7-21) mg/dL Creatinine 1.1 1.2 (0.8-1.5) mg/dl Est GFR ( Amer) > 60 > 60 Est GFR (Non-Af Amer) > 60 60 Random Glucose 143 H 128 H (70-110) mg/dL Calcium 7.9 L 7.8 L (8.4-10.5) mg/dL Total Creatine Kinase (35-230) U/L CK-MB (CK-2) (0.0-3.6) ng/mL CK-MB (CK-2) % Venous Blood Potassium 3.7 (3.6-5.2) mmol/L 05/23/17 Range/Units 16:30 WBC (4.5-11.0) 10^3/ul RBC (3.5-6.1) 10^6/uL Hgb (14.0-18.0) g/dL Hct (42.0-52.0) % MCV (80.0-105.0) fl MCH (25.0-35.0) pg MCHC (31.0-37.0) g/dl RDW (11.5-14.5) % Plt Count (120.0-450.0) 10^3/uL MPV (7.0-11.0) fl Gran % (50.0-68.0) % Lymph % (Auto) (22.0-35.0) % [place] % (Auto) (1.0-6.0) % Eos % (Auto) (1.5-5.0) % Baso % (Auto) (0.0-3.0) % Gran # (1.4-6.5) Lymph # (1.2-3.4) [place] # (0.1-0.6) Eos # (0.0-0.7) Baso # (0.0-2.0) K/mm3 pO2 28 L (30-55) mm/Hg VBG pH 7.32 (7.32-7.43) VBG pCO2 51.0 (40-60) VBG HCO3 26.3 (21-28) mmol/l VBG Total CO2 27.9 (22-28) mmol.L VBG O2 Sat (Calc) 66.8 H (40-65) % VBG Base Excess -0.5 L (0.0-2.0) mmol/L VBG Potassium 3.8 (3.6-5.2) mmol/L Sodium 160.0 H* (132-148) mmol/L Chloride 128.0 H (98-107) mmol/L Glucose 126 H (75-110) mg/dl Lactate 1.2 (0.7-2.1) mmol/L FiO2 21.0 % Potassium (3.6-5.0) mmol/L Carbon Dioxide (21-33) mmol/L Anion Gap (10-20) BUN (7-21) mg/dL Creatinine (0.8-1.5) mg/dl Est GFR ( Amer) Est GFR (Non-Af Amer) Random Glucose (70-110) mg/dL Calcium (8.4-10.5) mg/dL Total Creatine Kinase (35-230) U/L CK-MB (CK-2) (0.0-3.6) ng/mL CK-MB (CK-2) % Venous Blood Potassium 3.8 (3.6-5.2) mmol/L Laboratory Results - last 24 hr 05/23/17 05/23/17 05/23/17 16:30 17:50 22:30 WBC RBC Hgb Hct MCV MCH MCHC RDW Plt Count MPV Gran % Lymph % (Auto) [place] % (Auto) Eos % (Auto) Baso % (Auto) Gran # Lymph # [place] # Eos # Baso # pO2 28 L VBG pH 7.32 VBG pCO2 51.0 VBG HCO3 26.3 VBG Total CO2 27.9 VBG O2 Sat (Calc) 66.8 H VBG Base Excess -0.5 L VBG Potassium 3.8 Sodium 160.0 H* 159 H* 155 H Chloride 128.0 H 124 H 123 H Glucose 126 H Lactate 1.2 FiO2 21.0 Potassium 3.7 3.8 Carbon Dioxide 26 24 Anion Gap 11 12 BUN 63 H 57 H Creatinine 1.2 1.1 Est GFR ( Amer) > 60 > 60 Est GFR (Non-Af Amer) 60 > 60 Random Glucose 128 H 143 H Calcium 7.8 L 7.9 L Total Creatine Kinase CK-MB (CK-2) CK-MB (CK-2) % Venous Blood Potassium 3.8 05/24/17 05/24/17 05/24/17 01:10 06:00 06:00 WBC 18.6 H D RBC 3.76 Hgb 12.0 L D Hct 38.9 L MCV 103.5 MCH 31.9 MCHC 30.8 L RDW 14.3 Plt Count 212 MPV 12.2 H Gran % 72.0 H Lymph % (Auto) 18.3 L [place] % (Auto) 6.6 H Eos % (Auto) 3.0 Baso % (Auto) 0.1 Gran # 13.41 H Lymph # 3.4 [place] # 1.2 H Eos # 0.6 Baso # 0.02 pO2 30 VBG pH 7.30 L VBG pCO2 56.0 VBG HCO3 27.6 VBG Total CO2 29.3 H VBG O2 Sat (Calc) 56.4 VBG Base Excess 0.1 VBG Potassium 3.7 Sodium 157.0 H 156 H* Chloride 122.0 H 121 H Glucose 138 H Lactate 1.9 FiO2 21.0 Potassium 3.6 Carbon Dioxide 27 Anion Gap 11 BUN 47 H Creatinine 1.1 Est GFR ( Amer) > 60 Est GFR (Non-Af Amer) > 60 Random Glucose 106 Calcium 7.9 L Total Creatine Kinase 499 H CK-MB (CK-2) 2.3 CK-MB (CK-2) % Cancelled Venous Blood Potassium 3.7 05/24/17 10:20 WBC RBC Hgb Hct MCV MCH MCHC RDW Plt Count MPV Gran % Lymph % (Auto) [place] % (Auto) Eos % (Auto) Baso % (Auto) Gran # Lymph # [place] # Eos # Baso # pO2 VBG pH VBG pCO2 VBG HCO3 VBG Total CO2 VBG O2 Sat (Calc) VBG Base Excess VBG Potassium Sodium 154 H Chloride 120 H Glucose Lactate FiO2 Potassium 3.3 L Carbon Dioxide 24 Anion Gap 13 BUN 39 H Creatinine 1.1 Est GFR ( Amer) > 60 Est GFR (Non-Af Amer) > 60 Random Glucose 121 H Calcium 8.0 L Total Creatine Kinase CK-MB (CK-2) CK-MB (CK-2) % Venous Blood Potassium Fingerstick Blood Sugar Results: 92 Critical Care Progress Note - Nutrition Nutrition: Nutrition Category Date Time Status Heart Healthy Diet [DIET] Diets 05/24/17 Breakfast Ordered Assessment/Plan - Assessment and Plan (Free Text) Plan: 72 y/o male with past medical history of HTN, schizophrenia, and depression presents with fall in the setting of hypovolemic shock secondary poor oral intake. Patient with an acute nasal bone fracture, currently stable. Patient is also hypernatremic and is on D5W fluids. Will repeat labs in the afternoon. Patient will be transferred out of the unit. Neuro: AAOx3 No focal deficits Nasal bone fracture stable Cardio: Hemodynamically stable Maintain MAP >65 SCDS Pulm: Maintain O2 saturations greater than 90% GI: HHD Protonix of GI PPX Renal: Hypernatremia, continue D5W fluids Repeat labs in afternoon Replete electrolytes as needed Maintain euvolemia ID: Vancomycin and Cefepime Procal ordered Cultures pending Maintain normothermia Rachelle, PGY-2 <Joel Freeman - Last Filed: 05/24/17 12:15> CCU Objective - Vital Signs / Intake & Output Vital Signs (Last 4 hours): Vital Signs Temp Pulse Resp BP Pulse Ox 05/24/17 09:40 87 12 97 05/24/17 09:30 97 H 22 98 05/24/17 09:20 84 13 96 05/24/17 09:10 98 H 11 L 98 05/24/17 09:00 97.7 F 73 19 141/81 98 05/24/17 08:50 84 12 99 05/24/17 08:40 87 13 100 05/24/17 08:30 83 97 05/24/17 08:20 87 29 H 98 Intake and Output (Last 8hrs): Intake & Output 05/23/17 05/24/17 05/24/17 22:59 06:59 14:59 Intake Total 300 Output Total 500 Balance -200 Weight 180 lb Intake: IV 300 Output: Urine 500 Other: Voiding Method Indwelling Catheter - Medications Active Medications: Active Medications Generic Name Dose Route Start Last Admin Trade Name Freq PRN Reason Stop Dose Admin Aripiprazole 10 mg 05/23/17 22:00 05/23/17 23:49 Abilify PO 10 mg HS ALEXIA Administration Protocol Benztropine Mesylate 0.5 mg 05/23/17 19:00 05/24/17 10:16 Cogentin PO 0.5 mg BID ALEXIA Administration Bupropion HCl 300 mg 05/24/17 10:00 05/24/17 11:31 Wellbutrin Xl PO 300 mg DAILY ALEXIA Administration Clonazepam 1 mg 05/23/17 19:00 05/24/17 10:14 Klonopin PO 1 mg BID ALEXIA Administration Protocol Fluoxetine HCl 20 mg 05/24/17 10:00 05/24/17 10:14 Prozac PO 20 mg DAILY ALEXIA Administration Dextrose 1,000 mls @ 150 mls/hr 05/23/17 16:30 05/24/17 01:25 Dextrose 5% In Water 1000 Ml IV 150 mls/hr .Q6H40M ALEXIA Administration Cefepime HCl 1 gm in 100 mls @ 100 mls/hr 05/23/17 22:00 05/24/17 10:10 Maxipime 1gm IVPB 100 mls/hr Q12 ALEXIA Administration Protocol Vancomycin HCl 500 mg in 100 mls @ 200 mls/hr 05/23/17 22:00 05/24/17 10:10 Vancomycin 500mg In Ns IVPB 200 mls/hr Q12 ALEXIA Administration Protocol Pantoprazole Sodium 40 mg 05/24/17 06:00 Protonix Ec Tab PO 0600 ALEXIA - Patient Studies Lab Studies: Lab Studies 05/24/17 05/24/17 05/24/17 Range/Units 11:40 10:20 06:00 WBC 18.6 H D (4.5-11.0) 10^3/ul RBC 3.76 (3.5-6.1) 10^6/uL Hgb 12.0 L D (14.0-18.0) g/dL Hct 38.9 L (42.0-52.0) % MCV 103.5 (80.0-105.0) fl MCH 31.9 (25.0-35.0) pg MCHC 30.8 L (31.0-37.0) g/dl RDW 14.3 (11.5-14.5) % Plt Count 212 (120.0-450.0) 10^3/uL MPV 12.2 H (7.0-11.0) fl Gran % 72.0 H (50.0-68.0) % Lymph % (Auto) 18.3 L (22.0-35.0) % [place] % (Auto) 6.6 H (1.0-6.0) % Eos % (Auto) 3.0 (1.5-5.0) % Baso % (Auto) 0.1 (0.0-3.0) % Gran # 13.41 H (1.4-6.5) Lymph # 3.4 (1.2-3.4) [place] # 1.2 H (0.1-0.6) Eos # 0.6 (0.0-0.7) Baso # 0.02 (0.0-2.0) K/mm3 pO2 (30-55) mm/Hg VBG pH (7.32-7.43) VBG pCO2 (40-60) VBG HCO3 (21-28) mmol/l VBG Total CO2 (22-28) mmol.L VBG O2 Sat (Calc) (40-65) % VBG Base Excess (0.0-2.0) mmol/L VBG Potassium (3.6-5.2) mmol/L Sodium 152 H 154 H (132-148) mmol/L Chloride 118 H 120 H (98-107) mmol/L Glucose (75-110) mg/dl Lactate (0.7-2.1) mmol/L FiO2 % Potassium 3.7 3.3 L (3.6-5.0) mmol/L Carbon Dioxide 24 24 (21-33) mmol/L Anion Gap 14 13 (10-20) BUN 40 H 39 H (7-21) mg/dL Creatinine 1.0 1.1 (0.8-1.5) mg/dl Est GFR ( Amer) > 60 > 60 Est GFR (Non-Af Amer) > 60 > 60 Random Glucose 106 121 H (70-110) mg/dL Calcium 8.0 L 8.0 L (8.4-10.5) mg/dL Total Creatine Kinase (35-230) U/L CK-MB (CK-2) (0.0-3.6) ng/mL CK-MB (CK-2) % Venous Blood Potassium (3.6-5.2) mmol/L 05/24/17 05/24/17 05/23/17 Range/Units 06:00 01:10 22:30 WBC (4.5-11.0) 10^3/ul RBC (3.5-6.1) 10^6/uL Hgb (14.0-18.0) g/dL Hct (42.0-52.0) % MCV (80.0-105.0) fl MCH (25.0-35.0) pg MCHC (31.0-37.0) g/dl RDW (11.5-14.5) % Plt Count (120.0-450.0) 10^3/uL MPV (7.0-11.0) fl Gran % (50.0-68.0) % Lymph % (Auto) (22.0-35.0) % [place] % (Auto) (1.0-6.0) % Eos % (Auto) (1.5-5.0) % Baso % (Auto) (0.0-3.0) % Gran # (1.4-6.5) Lymph # (1.2-3.4) [place] # (0.1-0.6) Eos # (0.0-0.7) Baso # (0.0-2.0) K/mm3 pO2 30 (30-55) mm/Hg VBG pH 7.30 L (7.32-7.43) VBG pCO2 56.0 (40-60) VBG HCO3 27.6 (21-28) mmol/l VBG Total CO2 29.3 H (22-28) mmol.L VBG O2 Sat (Calc) 56.4 (40-65) % VBG Base Excess 0.1 (0.0-2.0) mmol/L VBG Potassium 3.7 (3.6-5.2) mmol/L Sodium 156 H* 157.0 H 155 H (132-148) mmol/L Chloride 121 H 122.0 H 123 H (98-107) mmol/L Glucose 138 H (75-110) mg/dl Lactate 1.9 (0.7-2.1) mmol/L FiO2 21.0 % Potassium 3.6 3.8 (3.6-5.0) mmol/L Carbon Dioxide 27 24 (21-33) mmol/L Anion Gap 11 12 (10-20) BUN 47 H 57 H (7-21) mg/dL Creatinine 1.1 1.1 (0.8-1.5) mg/dl Est GFR ( Amer) > 60 > 60 Est GFR (Non-Af Amer) > 60 > 60 Random Glucose 106 143 H (70-110) mg/dL Calcium 7.9 L 7.9 L (8.4-10.5) mg/dL Total Creatine Kinase 499 H (35-230) U/L CK-MB (CK-2) 2.3 (0.0-3.6) ng/mL CK-MB (CK-2) % Cancelled Venous Blood Potassium 3.7 (3.6-5.2) mmol/L 05/23/17 05/23/17 Range/Units 17:50 16:30 WBC (4.5-11.0) 10^3/ul RBC (3.5-6.1) 10^6/uL Hgb (14.0-18.0) g/dL Hct (42.0-52.0) % MCV (80.0-105.0) fl MCH (25.0-35.0) pg MCHC (31.0-37.0) g/dl RDW (11.5-14.5) % Plt Count (120.0-450.0) 10^3/uL MPV (7.0-11.0) fl Gran % (50.0-68.0) % Lymph % (Auto) (22.0-35.0) % [place] % (Auto) (1.0-6.0) % Eos % (Auto) (1.5-5.0) % Baso % (Auto) (0.0-3.0) % Gran # (1.4-6.5) Lymph # (1.2-3.4) [place] # (0.1-0.6) Eos # (0.0-0.7) Baso # (0.0-2.0) K/mm3 pO2 28 L (30-55) mm/Hg VBG pH 7.32 (7.32-7.43) VBG pCO2 51.0 (40-60) VBG HCO3 26.3 (21-28) mmol/l VBG Total CO2 27.9 (22-28) mmol.L VBG O2 Sat (Calc) 66.8 H (40-65) % VBG Base Excess -0.5 L (0.0-2.0) mmol/L VBG Potassium 3.8 (3.6-5.2) mmol/L Sodium 159 H* 160.0 H* (132-148) mmol/L Chloride 124 H 128.0 H (98-107) mmol/L Glucose 126 H (75-110) mg/dl Lactate 1.2 (0.7-2.1) mmol/L FiO2 21.0 % Potassium 3.7 (3.6-5.0) mmol/L Carbon Dioxide 26 (21-33) mmol/L Anion Gap 11 (10-20) BUN 63 H (7-21) mg/dL Creatinine 1.2 (0.8-1.5) mg/dl Est GFR ( Amer) > 60 Est GFR (Non-Af Amer) 60 Random Glucose 128 H (70-110) mg/dL Calcium 7.8 L (8.4-10.5) mg/dL Total Creatine Kinase (35-230) U/L CK-MB (CK-2) (0.0-3.6) ng/mL CK-MB (CK-2) % Venous Blood Potassium 3.8 (3.6-5.2) mmol/L Laboratory Results - last 24 hr 05/23/17 05/23/17 05/23/17 16:30 17:50 22:30 WBC RBC Hgb Hct MCV MCH MCHC RDW Plt Count MPV Gran % Lymph % (Auto) [place] % (Auto) Eos % (Auto) Baso % (Auto) Gran # Lymph # [place] # Eos # Baso # pO2 28 L VBG pH 7.32 VBG pCO2 51.0 VBG HCO3 26.3 VBG Total CO2 27.9 VBG O2 Sat (Calc) 66.8 H VBG Base Excess -0.5 L VBG Potassium 3.8 Sodium 160.0 H* 159 H* 155 H Chloride 128.0 H 124 H 123 H Glucose 126 H Lactate 1.2 FiO2 21.0 Potassium 3.7 3.8 Carbon Dioxide 26 24 Anion Gap 11 12 BUN 63 H 57 H Creatinine 1.2 1.1 Est GFR ( Amer) > 60 > 60 Est GFR (Non-Af Amer) 60 > 60 Random Glucose 128 H 143 H Calcium 7.8 L 7.9 L Total Creatine Kinase CK-MB (CK-2) CK-MB (CK-2) % Venous Blood Potassium 3.8 05/24/17 05/24/17 05/24/17 01:10 06:00 06:00 WBC 18.6 H D RBC 3.76 Hgb 12.0 L D Hct 38.9 L MCV 103.5 MCH 31.9 MCHC 30.8 L RDW 14.3 Plt Count 212 MPV 12.2 H Gran % 72.0 H Lymph % (Auto) 18.3 L [place] % (Auto) 6.6 H Eos % (Auto) 3.0 Baso % (Auto) 0.1 Gran # 13.41 H Lymph # 3.4 [place] # 1.2 H Eos # 0.6 Baso # 0.02 pO2 30 VBG pH 7.30 L VBG pCO2 56.0 VBG HCO3 27.6 VBG Total CO2 29.3 H VBG O2 Sat (Calc) 56.4 VBG Base Excess 0.1 VBG Potassium 3.7 Sodium 157.0 H 156 H* Chloride 122.0 H 121 H Glucose 138 H Lactate 1.9 FiO2 21.0 Potassium 3.6 Carbon Dioxide 27 Anion Gap 11 BUN 47 H Creatinine 1.1 Est GFR ( Amer) > 60 Est GFR (Non-Af Amer) > 60 Random Glucose 106 Calcium 7.9 L Total Creatine Kinase 499 H CK-MB (CK-2) 2.3 CK-MB (CK-2) % Cancelled Venous Blood Potassium 3.7 05/24/17 05/24/17 10:20 11:40 WBC RBC Hgb Hct MCV MCH MCHC RDW Plt Count MPV Gran % Lymph % (Auto) [place] % (Auto) Eos % (Auto) Baso % (Auto) Gran # Lymph # [place] # Eos # Baso # pO2 VBG pH VBG pCO2 VBG HCO3 VBG Total CO2 VBG O2 Sat (Calc) VBG Base Excess VBG Potassium Sodium 154 H 152 H Chloride 120 H 118 H Glucose Lactate FiO2 Potassium 3.3 L 3.7 Carbon Dioxide 24 24 Anion Gap 13 14 BUN 39 H 40 H Creatinine 1.1 1.0 Est GFR ( Amer) > 60 > 60 Est GFR (Non-Af Amer) > 60 > 60 Random Glucose 121 H 106 Calcium 8.0 L 8.0 L Total Creatine Kinase CK-MB (CK-2) CK-MB (CK-2) % Venous Blood Potassium Critical Care Progress Note - Nutrition Nutrition: Nutrition Category Date Time Status Heart Healthy Diet [DIET] Diets 05/24/17 Breakfast Ordered Assessment/Plan - Assessment and Plan (Free Text) Plan: Patient seen and examined on rounds with resident, agree with note with following additions/exceptions: Patient is 72yo male with PMHx of HTN, Schizophrenia, deperssion presents with dehydration, hypernatremia, and sepsis. Currently afebrile, HD stable, comfortable, on D5W dirp, and broad spectrum antibiotics. Sepsis Hypernatremia Dehydration Leukocytosis Recommend: - supp o2 as needed - broad spectrum antibiotics - cont with broad spectrum antibiotics - check procal, follow up cultures - cont with D5W drip, repeat 12pm BMP - Q8hr Na checks - monitor electrolytes - resume psych meds - GI ppx - DVT ppx - stable transfer to floor
[2017-05-24 12:07] LABS: BLOOD UREA NITROGEN 40 mg/dL (7-21); GFR AFRICAN-AMERICAN > 60; GFR NON-AFRICAN AMERICAN > 60
[2017-05-24 14:23] LABS: BLOOD UREA NITROGEN 38 mg/dL (7-21); CALCIUM 8.2 mg/dL (8.4-10.5); GFR AFRICAN-AMERICAN > 60; GFR NON-AFRICAN AMERICAN > 60
--- NOTE | 2017-05-24 22:47 | PN ---
DATE: SUBJECTIVE: The patient is 72-year-old, seen and examined, sitting in chair, seems to be comfortable. He has periorbital swelling and right cheek abrasion. Otherwise, he is awake, alert, oriented and communicative. PHYSICAL EXAMINATION: VITAL SIGNS: He is afebrile. Pulse 97, respirations 20, blood pressure 121/73. LUNGS: Bilateral fair airflow. No rhonchi or crackles. HEART: S1 and S2 audible. ABDOMEN: Soft, nontender. No rebound. No guarding. NEUROLOGIC: He is awake, alert, and oriented. Answer simple questions. LABORATORY DATA: WBC is 18.6, hemoglobin 12, hematocrit 38, and platelet of 212. Chemistries: Sodium 151, potassium 3.3, chloride 116, CO2 of 24, BUN 38, creatinine 1.0, and blood sugar of 95. Blood shows gram-positive cocci, one bottle, urine is negative. Maxillofacial CT scan showed nasal fracture acute with soft tissue swelling. ASSESSMENT: 1. Status post alerted mental status. 2. Staph aureus bacteremia. 3. History of bipolar disorder. 4. Hypertension. 5. Hyperlipidemia. PLAN: Currently, the patient is on lorazepam. He is getting IV fluids, we will continue that. He is on Maxipime q. 12, we will continue that also. He is on vancomycin. I will order for blood culture in a.m. We will follow up CBC and CMP in a.m. We will apply Bactroban to the right cheek abrasion. Awaiting Dr. Carroll's input. Start physical therapy. Preston Branch MD
[2017-05-25] MEDS: Pantoprazole 40 mg EC Tab PO SCH (06:03)
[2017-05-25 07:09] LABS: BASO # 0.01 K/mm3 (0.0-2.0); BASO % 0.1 % (0.0-3.0); EOS # 0.6 (0.0-0.7); EOS % 4.7 % (1.5-5.0); GRAN # 7.45 (1.4-6.5); GRAN % 62.9 % (50.0-68.0); LYMPH # 3.2 (1.2-3.4); LYMPH % 27.2 % (22.0-35.0); MEAN CELL VOLUME 99.1 fl (80.0-105.0); MEAN CORPUSCULAR HEMOGLOBIN 32.2 pg (25.0-35.0); MEAN CORPUSCULAR HGB CONC 32.5 g/dl (31.0-37.0); MEAN PLATELET VOLUME 11.6 fl (7.0-11.0); MONO # 0.6 (0.1-0.6); MONO % 5.1 % (1.0-6.0); RBC 3.17 10^6/uL (3.5-6.1); RED CELL DISTRIBUTION WIDTH 13.8 % (11.5-14.5); WHITE BLOOD COUNT 11.8 10^3/ul (4.5-11.0)
[2017-05-25 07:29] LABS: ALB/GLOB RATIO 0.9 (1.1-1.8); ALBUMIN 2.5 g/dL (3.0-4.8); ALT/SGPT 43 U/L (7-56); AST/SGOT 31 U/L (17-59); BLOOD UREA NITROGEN 28 mg/dL (7-21); CALCIUM 7.7 mg/dL (8.4-10.5); GFR AFRICAN-AMERICAN > 60; GFR NON-AFRICAN AMERICAN > 60; HEMOGLOBIN 10.2 g/dL (14.0-18.0)
[2017-05-25] MEDS: buPROPion 300 mg/24 Hours XL Tab PO SCH (09:20)
[2017-05-25] MEDS: Cefepime 1gm in NS 100ml 1 GM/100 ML BAG IVPB SCH ×2 (09:23→21:32)
[2017-05-25 12:16] LABS: HEMOGLOBIN 11.2 g/dL (14.0-18.0)
[2017-05-25] MEDS: Vancomycin 500mg in NS 500 MG/100 ML BAG IVPB SCH ×2 (12:55→22:36)
[2017-05-25] MEDS ORDERED: Potassium Chloride 20 mEq/15 ml LIQ UD PO STA (18:59)
--- NOTE | 2017-05-25 20:29 | PN ---
DATE: SUBJECTIVE: The patient is a 72-year-old, seen and examined, sitting in chair, and seems to be comfortable. No nausea or vomiting. No diarrhea. Eating and tolerating. PHYSICAL EXAMINATION: VITAL SIGNS: He is afebrile, pulse 82, respirations 20, and blood pressure 147/72. HEAD AND NECK: He has periorbital swelling. Right cheek contusion and abrasion. LUNGS: Bilateral fair airflow. No rhonchi or crackle. HEART: S1 and S2 audible. ABDOMEN: Soft and nontender. No rebound. No guarding. NEUROLOGIC: He is awake, alert, oriented, and communicative. LABORATORY DATA: His WBC 11.8, hemoglobin 10.2, hematocrit 31.4, and platelets of 175. Chemistry: Sodium 144, potassium 3.1, chloride 114, CO2 of 24, BUN 28, creatinine 1.1, and blood sugar of 100. He has Gram-positive cocci in blood. Repeat cultures are negative. Urinalysis is unremarkable. ASSESSMENT: 1. Status post fall. 2. Facial abrasion and nasal bone fracture. 3. Leukocytosis. 4. Gram-positive . 5. Hypertension. 6. Hyperlipidemia. 7. Hypokalemia. PLAN: We will supplement potassium, apply Bactroban to the right cheek abrasion, and continue IV fluids. We will follow up CBC and CMP in a.m. Preston Branch MD
[2017-05-26] MEDS: Pantoprazole 40 mg EC Tab PO SCH (06:00)
[2017-05-26 07:12] LABS: HEMOGLOBIN 10.4 g/dL (14.0-18.0); MEAN CELL VOLUME 99.7 fl (80.0-105.0); MEAN CORPUSCULAR HEMOGLOBIN 32.6 pg (25.0-35.0); MEAN CORPUSCULAR HGB CONC 32.7 g/dl (31.0-37.0); MEAN PLATELET VOLUME 11.8 fl (7.0-11.0); RBC 3.19 10^6/uL (3.5-6.1); RED CELL DISTRIBUTION WIDTH 13.8 % (11.5-14.5); WHITE BLOOD COUNT 10.7 10^3/ul (4.5-11.0)
[2017-05-26 07:29] LABS: BLOOD UREA NITROGEN 18 mg/dL (7-21); CALCIUM 8.2 mg/dL (8.4-10.5); GFR AFRICAN-AMERICAN > 60; GFR NON-AFRICAN AMERICAN > 60
[2017-05-26 07:34] VITALS: RESP 18
[2017-05-26] MEDS: buPROPion 300 mg/24 Hours XL Tab PO SCH (10:57)
[2017-05-26] MEDS: Vancomycin 500mg in NS 500 MG/100 ML BAG IVPB SCH ×2 (10:57→23:11)
[2017-05-26] MEDS: Cefepime 1gm in NS 100ml 1 GM/100 ML BAG IVPB SCH ×2 (10:57→21:36)
[2017-05-27] MEDS: Pantoprazole 40 mg EC Tab PO SCH (05:37)
[2017-05-27 08:14] VITALS: BP 125/81; PULSE 76; TEMP 98.4; O2SAT 96
[2017-05-27] MEDS: buPROPion 300 mg/24 Hours XL Tab PO SCH (09:52)
[2017-05-27] MEDS: Cefepime 1gm in NS 100ml 1 GM/100 ML BAG IVPB SCH (09:54)
[2017-05-27] MEDS: Vancomycin 500mg in NS 500 MG/100 ML BAG IVPB SCH (09:55)
--- NOTE | 2017-05-28 02:13 | DS ---
HISTORY OF PRESENT ILLNESS: The patient is 72 years old who was brought to the Emergency Room after he was found on the floor for 3 days. He was never noted that he has not been going in and out. They called ambulance and police, who broke the lock and he was found on the floor, and he was brought to the Emergency Room. He was found to be having altered mental status. He was hypernatremic. He was in acute renal failure, so he was given IV fluid, IV antibiotic, doing well. Patient also sustained right cheek abrasion with nasal bone fracture. He has been on IV antibiotics, doing well, being transferred to TCU today. PHYSICAL EXAMINATION: GENERAL: He is awake, alert, oriented, communicative. VITAL SIGNS: He is afebrile, pulse 76, respiration 18, blood pressure 121/80. LUNGS: Bilateral fair airflow. No rhonchi or crackles. HEART: S1 and S2 audible. ABDOMEN: Soft, nontender. No rebound, no guarding. NEUROLOGIC: He is awake, alert, oriented. Able to communicate. LABORATORY EXAM: Sodium 145, potassium 4.5, chloride 114, CO2 of 25, BUN 18, creatinine 1.1, blood sugar of 98. His blood culture first one bottle shows coag negative staph, second bottle was negative. Repeat blood cultures are negative. ASSESSMENT: Status post altered mental status, status post acute renal failure, right facial abrasion with nasal bone fracture, bipolar disorder, hypertension, hyperlipidemia. PLAN: The patient is being transferred to TCU. He will receive physical therapy. We will monitor his electrolytes. Continue him on current medications. Followup patient in a.m. Preston Branch MD
--- NOTE | 2017-05-30 08:38 | DS ---
HISTORY OF PRESENT ILLNESS: The patient was seen and examined, sitting in chair. The patient was found on the floor for 3 days. He was brought in and he was dehydrated. He has hypernatremia and acute renal failure, seems to be improving. The patient is deconditioning and being transferred to TCU for further rehab and monitoring of his medications. PAST MEDICAL HISTORY: Significant for bipolar disorder, hypertension, and hyperlipidemia. PHYSICAL EXAMINATION: GENERAL: Today; he is awake, alert, oriented, and communicative. VITAL SIGNS: He is afebrile, pulse 94, respirations 18, and blood pressure . LUNGS: Bilateral airflow. No rhonchi or crackle. HEART: S1 and S2 audible. ABDOMEN: Soft and nontender. No rebound. No guarding. NEUROLOGIC: He is awake, alert, oriented, and communicative. LABORATORY DATA: His WBC is 10.7, hemoglobin 10.4, hematocrit 31.8, and platelet of 181. Chemistry; sodium 145, potassium 4.5, chloride 114, CO2 of 25, BUN 18, and creatinine 1.1. Blood sugar of 96. ASSESSMENT: 1. Status post fall. 2. Rhabdomyolysis. 3. Hypernatremia. 4. Acute renal failure. 5. Bipolar disorder. 6. Hypertension. PLAN: The patient's electrolyte imbalance has been corrected. We will discontinue IV fluids. Continue psych medications. When the patient is accepted to TCU, he can be transferred. Preston Branch MD
--- NOTE | 2017-05-30 10:03 | CON ---
DATE: 05/26/2017 PRESENTATION: The patient is a 72-year-old white male seen at bedside. He has a large bruised area of abrasion on the right side of his head. He indicates that he had fallen at home ended on the floor for a few days before he was found and brought to the hospital. He was dehydrated at the time. He states physically he is feeling much better since he has been in the hospital. He also has a history of hypertension. The patient was referred for consultation originally to Dr. Carroll who has not been into see the patient, so the consult was changed to Dr. Thompson who was present for this interview. The patient has been seeing Dr. Carroll for about 20 years indicates that he has been on Psychiatric Unit here at [place] several times. He has also had ECT both here and at [facility]. He indicates he also has a long history of depression that once he stopped working, he got nervous breakdown and has been under treatment with Dr. Carroll ever since. The patient indicates that he was born in [place], he grew up here, he went to school here, and he graduated from high school. He said he was a decent student and has had no learning disabilities and he went to work right afterwards at [email or web address] together and he worked there up until late 70s, he believes that he was there for 27 years. He indicates that once he retired from there is one he started having psychiatric difficulties he has "nervous breakdown," which he is unable to expand upon what exactly that meant other than that he was very very depressed. As stated earlier, he started treatment with Dr. Carroll he has had ECT several times here and at [facility]. He has always been depressed, never had any issues with bladimir or hallucinations or psychosis or anything of that sort. He has never had been suicidal or had a suicide attempt. He indicates that sometimes he has anxiety, but he really has been doing well on his present medications, which are Abilify 10 mg one at bedtime, Cogentin 0.5 mg one p.o. b.i.d., Wellbutrin XL 300 mg one daily, Klonopin 1 mg one p.o. b.i.d., and Prozac 20 mg one daily. He feels that these medications have been very helpful for him and we are continuing these while in the hospital. The patient lives alone. He really does not have any relatives, had both his parents are . His mother in 1983 of heart attack and his dad in 2004 of an illness. He had a stillborn brother leaving him as the only child of his family. He denies any history of drugs or alcohol. No history of past or current of legal issues. He does not feel that he is depressed at this time or has any difficulties. He indicates that he takes care of his house, he cleans, he goes to the movies, he is able to care for himself, and he is happy with his life. He sees Dr. Carroll once a month. PHYSICAL EXAMINATION: VITAL SIGNS: His current vital signs are 97.5 for temperature, blood pressure is 145/97, his respirations are 18, and his O2 saturation is 100%. MENTAL STATUS EXAMINATION: The patient is alert and oriented x3. His eye contact is good. His behavior is pleasant and cooperative. His speech rate and volume are within normal limits. Mood is euthymic. Affect is full. Thoughts are goal directed, but somewhat concrete and he has a child-like quality to the interaction. He denies being suicidal or homicidal. He denies the presence of hallucinations, delusions, or paranoia. His concentration and focus he reports are good. His memory both short and fdc is adequate. His appetite and his sleep, he reports are normal. LABORATORY DATA: Include white blood cell count when he was admitted on 05/23/2017 was 26.3, as of today it is going down to 10.7, so which is the first day it is normal which and the patient indicates he is feeling much better. DIAGNOSTIC IMPRESSION: Major depression, recurrent, severe without psychotic features, currently resolved on maintenance medication and hypertension. PLAN: The patient is planning to continue with Dr. Carroll in the community. Currently, he is not suicidal or homicidal. He appears to be not imminent danger for hurting himself or others and there are no symptoms of psychosis. He is clear in his presentation. Please call us if there are any further issues with this patient. Roxanne Pierce APN Moreno Thompson MD ANILA
--- NOTE | 2017-05-31 22:26 | CON ---
PSYCHIATRIC CONSULTATION DATE: 05/31/2017 HISTORY OF PRESENT ILLNESS: The patient is a 72-year-old white male. I reviewed the chart. I spoke with patient's and nursing staff. The patient currently is being treated on a Transistional Care Unit for debilitation. He was recently admitted to the hospital following a fall where he was found in his apartment floor for 2 to 3 days without being able to get up. The patient was found to have rhabdomyolysis, he was originally hypernatremic, he was very confused, he had originally acute renal failure. PAST MEDICAL HISTORY: History of schizoaffective disorder. He has had multiple psychiatric hospitalizations in the past, most recently in 2014 for psychotic and depressive disorders. I have known him for over 30 years, I followed him as an outpatient. I saw him last month, he was in good condition without any abnormalities of mental status or physical problems. The patient has also a history of lung malignancy for which he had a lobectomy many years ago, has history of hypertension. PERSONAL HISTORY: He lives alone. His parents are . He has a schizoid life style. No alcohol or substance abuse. No history of suicide attempts. The patient has been caring for himself, I had been seeing him in my office approximately once a month for many years as noted above. LABORATORY DATA: Originally on 05/23/2017, he had a white count of 26,300. His most recent white count is 10,700, hemoglobin of 10.4 and platelet count of 181,000. The patient originally on admission had a sodium 152, chloride 118. Currently all his electrolytes except for minimally elevated chloride were all within normal range. Renal function, BUN, creatinine, GFR all within normal range. Calcium 8.1. The patient's venous pO2 was 30 on 05/24/2017. Urine for toxicology was negative. The patient had a CAT scan of the head, which revealed moderate cerebral atrophy with chronic microvascular disease. The patient had a CT scan originally on his maxillofacial region. He had a fracture of the base of his nasal bone with soft tissue swelling. The patient had a mass lateral to left orbital . MEDICATIONS: The patient's current medications include Abilify 10 mg at bedtime, Bactroban ointment, Cogentin 0.5 mg b.i.d., clonazepam 1 mg b.i.d., Norvasc 10 mg daily, Protonix 40 mg q.a.m., Prozac 20 mg daily, vancomycin 500 mg IVPB b.i.d. He has also Wellbutrin 300 mg p.o. daily. REVIEW OF SYSTEMS: Claims of some soreness in his face. Claims of a fine tremor on the right upper extremity. Slight weakness on his feet on walking. The patient's rest of 12-point review of systems noncontributory. PHYSICAL EXAMINATION: VITAL SIGNS: Blood pressure is 128/76, pulse 100, respirations 18 per minute, and 02 saturation 91% on room air. PSYCHIATRIC: His mental status, he is awake, he is generally alert and is oriented x3. Recognizes me. He has somewhat of a flat affect. Appears depressed. Denies suicidal ideation, denies hallucinations. The patient's recent memory intermediate memory as to events leading up to his fall and afterwards is impaired. The patient denies any suicidal ideation. IMPRESSION: Status post rhabdomyolysis, status post fall, mechanical fall, and dehydration. The patient had status post hypernatremia, history of chronic schizoaffective disorder. The patient has history of hypertension, has laceration on the side of his face, fracture of bone at the base of his nose. The patient has acute delirium gradually resolving. PLAN: I would reduce Abilify to 5 mg p.o. at bedtime, and we will reevaluate p.r.n. at your request. The patient definitely needs extended physical therapy as currently he is unable to take care of himself due to his physical problems. Srinivas Carroll MD
== END 2017-05-27 15:25 | DRG 871 ==
LOC: ED 12:53 → ERH 16:16 → ICU 22:52 → 5RNO 05-24 13:51
PROVIDERS: ADMIT Internal Medicine; ATTEND Internal Medicine
DX: A41.01 Sepsis due to Methicillin susceptible Staphylococcus aureus (principal); N17.0 Acute kidney failure with tubular necrosis; R57.1 Hypovolemic shock; F33.2 Major depressive disorder, recurrent severe without psychotic features; E87.0 Hyperosmolality and hypernatremia; G20 Parkinson's disease; M62.82 Rhabdomyolysis; F20.0 Paranoid schizophrenia; S02.2XXA Fracture of nasal bones, initial encounter for closed fracture; R65.20 Severe sepsis without septic shock; E78.5 Hyperlipidemia, unspecified; E86.0 Dehydration; E87.6 Hypokalemia; F31.9 Bipolar disorder, unspecified; I10 Essential (primary) hypertension; S00.81XA Abrasion of other part of head, initial encounter; Z79.899 Other long term (current) drug therapy; Z82.49 Family history of ischemic heart disease and other diseases of the circulatory system; Z87.891 Personal history of nicotine dependence; Z88.8 Allergy status to other drugs, medicaments and biological substances; R40.2412 Glasgow coma scale score 13-15, at arrival to emergency department

== ENCOUNTER 2017-05-27 15:31 | Inpatient (IN) | payer OTHER, BC ==
[2017-05-27] MEDS: Vancomycin 500mg in NS 500 MG/100 ML BAG IVPB SCH (21:49)
[2017-05-27] MEDS: Cefepime 1gm in NS 100ml 1 GM/100 ML BAG IVPB SCH (22:46)
[2017-05-28] MEDS: Pantoprazole 40 mg EC Tab PO SCH (06:05)
[2017-05-28 08:12] LABS: ALT/SGPT 43 U/L (7-56); AST/SGOT 43 U/L (17-59); BLOOD UREA NITROGEN 19 mg/dL (7-21); CALCIUM 8.1 mg/dL (8.4-10.5); GFR AFRICAN-AMERICAN > 60; GFR NON-AFRICAN AMERICAN 60
[2017-05-28] MEDS: Cefepime 1gm in NS 100ml 1 GM/100 ML BAG IVPB SCH ×2 (09:52→21:08)
[2017-05-28] MEDS: Vancomycin 500mg in NS 500 MG/100 ML BAG IVPB SCH ×2 (09:53→21:08)
[2017-05-28] MEDS: buPROPion 300 mg/24 Hours XL Tab PO SCH (09:53)
[2017-05-28] MEDS ORDERED: buPROPion 150 mg/24 Hours XL Tab PO SCH (10:00)
[2017-05-29] MEDS: Pantoprazole 40 mg EC Tab PO SCH (05:55)
[2017-05-29] MEDS: Vancomycin 500mg in NS 500 MG/100 ML BAG IVPB SCH ×2 (10:48→21:51)
[2017-05-29] MEDS: Cefepime 1gm in NS 100ml 1 GM/100 ML BAG IVPB SCH ×2 (10:48→21:51)
[2017-05-29] MEDS: buPROPion 300 mg/24 Hours XL Tab PO SCH (10:49)
[2017-05-30] MEDS: Pantoprazole 40 mg EC Tab PO SCH (05:43)
[2017-05-30] MEDS: Cefepime 1gm in NS 100ml 1 GM/100 ML BAG IVPB SCH ×2 (10:17→22:14)
[2017-05-30] MEDS: buPROPion 300 mg/24 Hours XL Tab PO SCH (10:19)
[2017-05-30] MEDS: Vancomycin 500mg in NS 500 MG/100 ML BAG IVPB SCH (10:19)
--- NOTE | 2017-05-30 19:01 | CP.PCM.PN ---
Subjective - Date & Time of Evaluation Date of Evaluation: 05/30/17 Time of Evaluation: 18:24 - Subjective Subjective: Code star called at 18:24 As per nurses patient got out of bed and fell hitting his head on the floor. Pt states that his legs were weak and he lost his balance and fell. He admits to hitting his head. He denies loss of consciousness. Denies any neck pain. He denies any dizziness, headaches, chest pain, sob, palpitations, abd pain, n/v/ d. Vit: HR: 126 BP: 133/74 RR: 20 SO2 96% On physical exam: HEENT: Laceration to R side top of his eyebrows now reopended from prior bruise RLE knee- prior bruise reopened as well Neck/ back: no neck pain or midline or paraspinal tenderness Plan: - Pt was assisted to a bed - CT head and neck stat - Will obtain CT of maxillofacial as well to r/o any fractures - Spoke to Dr Branch which agreed with plan Objective - Vital Signs/Intake and Output Vital Signs (last 24 hours): Temp Pulse Resp BP Pulse Ox 98.7 F 52 L 14 114/68 93 L 05/30/17 17:06 05/30/17 17:06 05/30/17 17:06 05/30/17 17:06 05/30/17 17:06 - Medications Medications: Current Medications Amlodipine Besylate (Norvasc) 10 mg PO DAILY ALEXIA PRN Reason: Protocol Last Admin: 05/30/17 10:18 Dose: 10 mg Aripiprazole (Abilify) 10 mg PO HS ALEXIA PRN Reason: Protocol Last Admin: 05/29/17 21:52 Dose: 10 mg Benztropine Mesylate (Cogentin) 0.5 mg PO BID ALEXIA PRN Reason: Protocol Last Admin: 05/30/17 10:17 Dose: 0.5 mg Bupropion HCl (Wellbutrin Xl) 300 mg PO DAILY ALEXIA Last Admin: 05/30/17 10:19 Dose: 300 mg Clonazepam (Klonopin) 1 mg PO BID ALEXIA Last Admin: 05/30/17 10:17 Dose: 1 mg Fluoxetine HCl (Prozac) 20 mg PO DAILY ALEXIA PRN Reason: Protocol Last Admin: 05/30/17 10:18 Dose: 20 mg Cefepime HCl (Maxipime 1gm) 1 gm in 100 mls @ 100 mls/hr IVPB Q12 ALEXIA PRN Reason: Protocol Last Admin: 05/30/17 10:17 Dose: 100 mls/hr Vancomycin HCl (Vancomycin 500mg In Ns) 500 mg in 100 mls @ 200 mls/hr IVPB 0600,1800 ALEXIA PRN Reason: Protocol Mupirocin (Bactroban Ointment) 0.5 gm TOP BID ALEXIA PRN Reason: Protocol Last Admin: 05/30/17 10:16 Dose: 1 applic Pantoprazole Sodium (Protonix Ec Tab) 40 mg PO 0600 ALEXIA PRN Reason: Protocol Last Admin: 05/30/17 05:43 Dose: 40 mg - Labs Labs: 05/28/17 06:30
--- NOTE | 2017-05-31 00:35 | HP ---
HISTORY OF PRESENT ILLNESS: The patient is a 72-year-old known to me from my office practice who was brought to Emergency Room on 05/23/2017 when his neighbor noticed that he is not going in and out, they called the police who broke the lock and found him on the floor. The patient states he has been on the floor for a while. He did not have strength to get up or call anybody for help. PAST MEDICAL HISTORY: He has significant past medical history of hypertension, hyperlipidemia, history of bipolar disorder and schizophrenia. He is on multiple psych medications. ALLERGIES: HE IS ALLERGIC TO CHLORPROMAZINE AND LAMOTRIGINE. MEDICATIONS AT HOME: He is on Klonopin 1 mg twice a day, amlodipine 10 mg daily, valsartan 320/25 daily, simvastatin 20 mg daily, Protonix 40 daily, Prozac, bupropion, Cogentin, and Abilify. SOCIAL HISTORY: He lives by himself in housing. Denies smoking, drinking, or alcohol use. He used to be heavy smoker in the remote past. PHYSICAL EXAMINATION: GENERAL: He is awake, alert, and oriented. He has facial abrasion on his left cheek and also has healing abrasion on his right side of his belly. LUNGS: Bilateral good airflow. No rhonchi or crackles. HEART: S1 and S2 audible. ABDOMEN: Soft and nontender. No rebound. No guarding. NEUROLOGIC: The patient is awake, alert, oriented, and communicative. ASSESSMENT: 1. Deconditioning and difficulty walking. 2. Bipolar disorder. 3. Hypertension. 4. Hyperlipidemia. PLAN: We will continue the patient on current medication. Local treatment with Bactroban. Encourage physical therapy and gait training. We will follow up the patient in a.m. Preston Branch MD
[2017-05-31] MEDS: Vancomycin 500mg in NS 500 MG/100 ML BAG IVPB SCH ×2 (05:39→18:29)
[2017-05-31] MEDS: Pantoprazole 40 mg EC Tab PO SCH (05:39)
[2017-05-31] MEDS: Cefepime 1gm in NS 100ml 1 GM/100 ML BAG IVPB SCH (10:27)
[2017-05-31] MEDS: buPROPion 300 mg/24 Hours XL Tab PO SCH (10:28)
[2017-05-31] MEDS: Cefpodoxime (Vantin) 100 mg Tab PO SCH (22:38)
--- NOTE | 2017-05-31 22:48 | PN ---
SUBJECTIVE: The patient is 72 years old seen and examined, lying in bed, seems to be comfortable. Yesterday's event noted, fell from the chair. CT scan was unremarkable. Doing well. PHYSICAL EXAMINATION GENERAL: He is awake, alert, oriented, communicative. VITAL SIGNS: He is afebrile. Pulse 96, respirations 20, blood pressure 111/68. LUNGS: Bilateral good airflow. No rhonchi or crackle. HEENT: S1 and S2 audible ABDOMEN: Soft and nontender. No rebound. No guarding. NEUROLOGIC: The patient is awake and alert. Able to communicate. He has crusted right facial wound and crusted right abdominal and bilateral knee abrasion. LABORATORY EXAM: There is no new lab available today. ASSESSMENT: 1. Status post fall. 2. Right facial abrasion. 3. Nondisplaced nasal bone fracture. 4. Hypertension. 5. Hyperlipidemia. 6. Bipolar disorder. 7. Schizophrenia. 8. Deconditioning and difficulty walking. PLAN: We will continue patient on current medication. He is doing well. We will discontinue his IV antibiotics. Start him on Vantin and discontinue IV vancomycin also. Encourage ambulation and followup patient in a.m. Preston Branch MD
[2017-06-01] MEDS: Pantoprazole 40 mg EC Tab PO SCH (05:35)
[2017-06-01] MEDS: buPROPion 150 mg/24 Hours XL Tab PO SCH (10:57)
[2017-06-01] MEDS: Cefpodoxime (Vantin) 100 mg Tab PO SCH ×2 (10:57→21:36)
--- NOTE | 2017-06-01 22:34 | PN ---
SUBJECTIVE: The patient is 72 years old, seen and examined, lying in bed, seems to be comfortable. No nausea, vomiting. No diarrhea. Eating and tolerating. Ambulating. PHYSICAL EXAMINATION: VITAL SIGNS: He is afebrile. pulse 95, respirations 20, blood pressure 112/67. LUNGS: Bilateral fair airflow. No rhonchi or crackles. HEART: S1 and S2 audible. ABDOMEN: Soft, nontender. No rebound. No guarding. NEUROLOGICAL: The patient is awake and alert. He has healing right facial and right abdominal crust. ASSESSMENT: 1. Status post fall. 2. Right facial and right abdominal and bilateral knee abrasions, healing. 3. Bipolar disorder. 4. Hypertension. 5. Hyperlipidemia. PLAN: We will continue the patient on current medications and encourage physical therapy. Continue p.o. antibiotics. Follow up. Preston Branch MD
[2017-06-02] MEDS: Pantoprazole 40 mg EC Tab PO SCH (05:50)
[2017-06-02] MEDS: Cefpodoxime (Vantin) 100 mg Tab PO SCH ×2 (11:16→21:52)
[2017-06-02] MEDS: buPROPion 150 mg/24 Hours XL Tab PO SCH (11:16)
[2017-06-02] MEDS ORDERED: Albuterol HFA 90 mcg/actuation (8 g) IH PRN (14:20)
[2017-06-02] MEDS ORDERED: Albuterol 0.5% Inhal Sol (2.5 mg/0.5 ml) UD IH PRN (14:28)
--- NOTE | 2017-06-02 19:59 | PN ---
DATE: SUBJECTIVE: The patient is a 72-year-old, seen and examined, sitting in chair, seems to be comfortable, much more awake, alert and oriented. His right facial abrasion crust seem to be partially has fallen off and has granulation tissue underneath. The patient was also noticed to be hypoxic upon ambulation. He does have history of CA of the lung that he mentioned today and had partial pneumonectomy done few years ago. Denies any chest pain or shortness of breath. He states when he walks fast, he does get short of breath occasionally. PHYSICAL EXAMINATION: VITAL SIGNS: He is afebrile, pulse 96, respirations 20, and blood pressure 165/84. LUNGS: Bilateral fair airflow. No rhonchi or crackle. HEART: S1 and S2 audible. ABDOMEN: Soft and nontender. No rebound. No guarding. NEUROLOGIC: The patient is awake, alert, oriented, and communicative. LABORATORY DATA: There is no new lab available today. ASSESSMENT: 1. Status post fall. 2. Bipolar disorder. 3. History of cancer of the lung with partial pneumonectomy. 4. Exertional hypoxia. 5. Bilateral knee, right abdominal and right facial abrasion. 6. Acute renal failure, resolved. 7. Hyponatremia, resolved. PLAN: Get CT scan of the chest and get Pulmonary evaluation to evaluate the need of home oxygen since he has exertional . Preston Branch MD
--- NOTE | 2017-06-02 22:52 | CON ---
DATE: 06/02/2017 PULMONARY CONSULT REFERRING PHYSICIAN: Dr. Branch. REASON FOR CONSULT: History of lung cancer, lobectomy, failed followup, now admitted in TICU after a fall and is hypoxemic. HISTORY OF PRESENT ILLNESS: This is a 72-year-old gentleman with past medical history significant for hypertension, hyperlipidemia, bipolar disorder, schizophrenia, chronic obstructive lung disease, history of lung cancer requiring lobectomy, did not have any followup from the last many years since lobectomy. Stopped smoking at the time of diagnosis of cancer. Presently, admitted because of fall, has multiple scabs on the lower extremity, on the right forehead and lateral side of the orbit, short of breath with exertion. No chest pain, no nausea, no vomiting, no diarrhea. PAST MEDICAL HISTORY: As per history of present illness. ALLERGIES: ALLERGIC TO CHLORPROMAZINE AND LAMOTRIGINE. SOCIAL HISTORY: Stopped smoking about 13 years ago when diagnosed with lung tumor. Denied any alcohol use. FAMILY HISTORY: No significant cardiopulmonary disease reported. MEDICATIONS: He is on Abilify 5 mg at bedtime, Bactroban ointment affected area, Cogentin 0.5 mg twice a day, clonazepam 1 mg twice a day, Norvasc 10 mg daily, Protonix 40 mg daily, Prozac 20 mg daily, Vantin 100 mg twice a day, Wellbutrin 50 mg daily. REVIEW OF SYSTEMS: No headache. No rhinitis. Does not know if he snores but daytime sleepy and tired. No chest pain. Has short of breath with exertion. No abdominal pain. No leg pain. No leg swelling. Has multiple scratch on the lower extremity. PHYSICAL EXAMINATION: GENERAL: Sitting up, no acute distress. VITAL SIGNS: Temperature is 98, heart rate 80, respiratory rate 20, blood pressure 165/84 and pulse ox 95% on room air. HEENT: Moist mucous membranes. Crowded airway. Mallampati score is IV. NECK: Supple. No JVD. LUNGS: Few scattered rhonchi. HEART: S1 and S2. ABDOMEN: Soft and nondistended.. EXTREMITIES: Has multiple scar. Also has a right orbital lateral side scratch. NEUROLOGIC: Awake, alert, and follows simple commands. LABORATORY DATA: Shows sodium 142, potassium 3.9, chloride 109, bicarbonate 26, BUN 19, creatinine 1.2, calcium 8.1. AST 43, ALT 43, alk phos is 64. Albumin is 3.0. IMPRESSION AND PLAN: Status post fall. According to the patient, does not remember how he fall. Has facial and extremity injuries with scabs and multiple abrasions, history of bipolar disorder, hypertension, chronic lung disease, also has a history of known lung tumor, while resected he was told for follow up CAT scan and also was told to have a chemotherapy done which he refused and did not follow up. I agree with the present plan. I think we should get at least CAT scan of the chest to evaluate if there is any recurrence. He denied any we will add albuterol HFA 2 puffs q. 4 hours p.r.n. Fall precaution. I will also suggest he should get echocardiogram to make sure there is no pulmonary hypertension. Thank you, and we will follow with you. Coco Beltran MD
[2017-06-03] MEDS: Pantoprazole 40 mg EC Tab PO SCH (05:22)
[2017-06-03] MEDS: Cefpodoxime (Vantin) 100 mg Tab PO SCH ×2 (10:55→22:34)
[2017-06-03] MEDS: buPROPion 150 mg/24 Hours XL Tab PO SCH (10:55)
[2017-06-03 16:59] VITALS: RESP 18
--- NOTE | 2017-06-04 01:29 | PN ---
DATE: 06/03/2017 REFERRING PHYSICIAN: Dr. Branch. SUBJECTIVE: He is lying in the bed, doing well, does have a cough and not much sputum production. No nausea, no vomiting, no diarrhea. No leg pain, leg swelling. OBJECTIVE: GENERAL: In no acute distress. VITAL SIGNS: Temperature is 98, heart rate is 90, respiratory rate is 18, blood pressure 119/74, pulse oximetry 97% on room air. HEENT: Moist mucous membranes. Crowded airway. NECK: Supple. No JVD. Right facial healing wound. LUNGS: Scattered rhonchi wheezing. HEART: S1 and S2. ABDOMEN: Soft, nontender. No organomegaly. EXTREMITIES: No edema. NEUROLOGICAL: Awake, alert, follows simple commands. MEDICATIONS: He is on Abilify 5 mg daily, DuoNeb q.6 hours p.r.n., Bactroban affected area, Cogentin 0.5 mg twice a day, Klonopin 1 mg twice a day, Norvasc 10 mg daily, Protonix 40 mg daily, Prozac 200 mg daily, Vantin 100 mg twice a day, Wellbutrin 150 mg daily. LABORATORY DATA: Shows no new lab is available since yesterday. IMPRESSION AND PLAN: Status post fall with right maxillary sinus fracture, also has some spine injury, multiple skin abrasions and scabs, bipolar disorder, hypertension, chronic lung disease, history of known lung tumor resected in the past. Refused chemoradiation therapy in the past. We will start him on inhaled bronchodilator, Brovana, Pulmicort and Mucomyst twice a day. We will keep speaking to the patient. If willing to do any intervention, we will do CAT scan of the chest but if he does not want to do anything, why to investigate further. We will speak to Dr. Branch. Continue therapy for now. Echocardiogram has been ordered. Thank you, and we will follow up with you. Coco Beltran MD
[2017-06-04] MEDS: Pantoprazole 40 mg EC Tab PO SCH (05:35)
[2017-06-04] MEDS ORDERED: Budesonide 0.5 mg/2 ml Inhal Susp UD IH SCH (08:00)
[2017-06-04] MEDS ORDERED: Arformoterol 15 mcg/2 ml Inh Sol IH SCH (08:00)
--- NOTE | 2017-06-04 08:58 | DS ---
HISTORY OF PRESENT ILLNESS: This is a 72-year-old male who has been on the Transitional Care Unit for physical therapy. The patient has been improving. He is scheduled to go to [facility] for further rehabilitation. The patient has no complaints of any chest pain, shortness of breath, or headache. PHYSICAL EXAMINATION: VITAL SIGNS: Temperature 98.4, pulse of 90, blood pressure 119/74, respirations 18, and O2 saturation 97%. HEENT: No oral lesion. Anicteric sclerae. Moist mucosa. NECK: No JVD, adenopathy, or thyromegaly. CARDIOVASCULAR: S1 and S2, regular. No murmurs, rubs, or gallops. LUNGS: Clear to auscultation bilaterally. No wheeze, rales, or rhonchi. ABDOMEN: Bowel sounds are positive, soft, nontender and nondistended. EXTREMITIES: No cyanosis, clubbing or edema. ASSESSMENT: 1. Fall. 2. Bipolar disorder. 3. right facial abrasion. 4. History of lung cancer with partial pneumonectomy. 5. Acute kidney injury improved. 6. Hyponatremia improved. PLAN: The patient is on Brovana for his shortness of breath. The patient is on Norvasc for hypertension. He is going to [facility]'s care today. The patient is on Wellbutrin for his anxiety. CONDITION: Stable. ACTIVITIES: Increase as tolerated. Karel Quinn MD
[2017-06-04] MEDS: buPROPion 150 mg/24 Hours XL Tab PO SCH (09:37)
[2017-06-04] MEDS ORDERED: Acetylcysteine 20% Inhal Soln (4ml) INH SCH (10:00)
[2017-06-04 10:27] VITALS: BP 113/67; PULSE 98; TEMP 97.5; O2SAT 95
--- NOTE | 2017-06-04 23:05 | PN ---
DATE: 06/04/2017 REFERRING PHYSICIAN: Dr. Branch. SUBJECTIVE: He is out of bed to chair, being transferred to subacute. Feels better. Decreased cough, decreased shortness of breath. No nausea, no vomiting, no diarrhea. No leg pain, no leg swelling. OBJECTIVE: GENERAL: In no acute distress. VITAL SIGNS: Temperature is 98, heart rate is 98, respiratory rate is 18, blood pressure 113/67, pulse ox 95% on room air. HEENT: Moist mucous membranes. Crowded airway. NECK: Supple. No JVD. Right side of the face bruise is healing well, has a scab on it. LUNGS: Have a fair airflow with few rhonchi. HEART: S1 and S2. ABDOMEN: Soft, nontender. No organomegaly. EXTREMITIES: Has multiple bruises over the lower extremity. No edema. NEUROLOGICAL: Awake, alert, follows simple commands. MEDICATIONS: He is on Abilify 5 mg at bedtime, Mucomyst 20% inhaled twice a day, albuterol/Atrovent nebulizer q. 6 hours p.r.n., Bactroban ointment affected area twice a day, Brovana inhaled twice a day, Cogentin 0.5 mg twice a day, Klonopin 1 mg twice a day, Norvasc 10 mg daily, Protonix 40 mg daily, Prozac 20 mg daily, Pulmicort inhale twice a day, Wellbutrin XL 150 mg daily. LABORATORY DATA: Reviewed. No new lab is available since yesterday. IMPRESSION AND PLAN: Status post fall with right maxillary sinus fracture, also had a spine injury, multiple skin abrasions and scabs, bipolar disorder, hypertension, chronic lung disease. History of known lung tumor, resected in the past, refused chemoradiation in the past, does not want to do workup for further investigation. From pulmonary point of view, feels better since on nebulizer treatment. Keep head at 45 degree. Aspiration precaution, fall precaution. Thank you, and we will follow up with you. Coco Beltran MD
== END 2017-06-04 16:00 | DRG 556 ==
LOC: TRCU 15:31
PROVIDERS: ADMIT Internal Medicine; ATTEND Internal Medicine
PROC: F07Z9FZ Gait Training/Functional Ambulation Treatment using Assistive, Adaptive, Supportive or Protective Equipment (ICD-10-PCS; principal; 2017-05-29)
PROC: F07Z8FZ Transfer Training Treatment using Assistive, Adaptive, Supportive or Protective Equipment (ICD-10-PCS; 2017-05-29)
PROC: F07L6YZ Therapeutic Exercise Treatment of Musculoskeletal System - Lower Back / Lower Extremity using Other Equipment (ICD-10-PCS; 2017-05-29)
PROC: F08Z4FZ Home Management Treatment using Assistive, Adaptive, Supportive or Protective Equipment (ICD-10-PCS; 2017-05-30)
DX: R26.2 Difficulty in walking, not elsewhere classified (principal); R09.02 Hypoxemia; J44.9 Chronic obstructive pulmonary disease, unspecified; E78.5 Hyperlipidemia, unspecified; I10 Essential (primary) hypertension; F31.9 Bipolar disorder, unspecified; F20.9 Schizophrenia, unspecified; S02.2XXD Fracture of nasal bones, subsequent encounter for fracture with routine healing; S00.81XD Abrasion of other part of head, subsequent encounter; S30.811D Abrasion of abdominal wall, subsequent encounter; S80.212D Abrasion, left knee, subsequent encounter; S80.211D Abrasion, right knee, subsequent encounter; W19.XXXD Unspecified fall, subsequent encounter; Z85.118 Personal history of other malignant neoplasm of bronchus and lung; Z90.2 Acquired absence of lung [part of]; Z87.891 Personal history of nicotine dependence

== ENCOUNTER 2017-07-19 18:02 | Inpatient (IN) | payer MEDICARE, BC ==
[2017-07-19 18:08] VITALS: BMI 24.3
--- NOTE | 2017-07-19 18:32 | ED PDOC ---
Arrival/HPI - General Chief Complaint: Altered Mental Status Time Seen by Provider: 07/19/17 18:15 Historian: Patient - History of Present Illness Narrative History of Present Illness (Text): 07/19/17 18:17 A 72 year old male, whose past medical history includes hypertension, hyperlipidemia, hypernatremia and lung CA with lobectomy, is sent from [facility] and presents to the emergency department in [facility]. Patient is alert and oriented x 3. Patient denies any fever, difficulty speaking, headache, any pain , confusion, or any other complaints at this time. Dr. Godoy/Dr. Branch Past Medical History - Provider Review Nursing Documentation Reviewed: Yes - Infectious Disease Hx of Infectious Diseases: None - Tetanus Immunization Tetanus Immunization: Unknown - Cardiac Hx Hypertension: Yes Other/Comment: Hypo-osmolarity and hyponatremia - Pulmonary Hx Respiratory Disorders: No - Neurological Hx Parkinson's Disease: Yes - HEENT Hx HEENT Disorder: No - Renal Hx Renal Disorder: No - Endocrine/Metabolic Hx Endocrine Disorders: No - Hematological/Oncological Hx Blood Disorders: No - Integumentary Hx Dermatological Disorder: No - Musculoskeletal/Rheumatological Hx Falls: Yes Hx Unsteady Gait: Yes Other/Comment: Muscle weakness - Gastrointestinal Hx Gastroesophageal Reflux: Yes Other/Comment: dysphagia; oropharyngeal phase - Genitourinary/Gynecological Hx Reproductive Disorders: No - Psychiatric Hx Anxiety: Yes Hx Depression: Yes Hx Schizophrenia: Yes Hx Substance Use: No Other/Comment: schizoaffective disorder; bipolar type - Surgical History Other/Comment: maxillary Fx right side - Anesthesia Hx Anesthesia: No - Suicidal Assessment Feels Threatened In Home Enviroment: No Family/Social History - Physician Review Nursing Documentation Reviewed: Yes Family/Social History: No Known Family HX Smoking Status: Former Smoker Hx Alcohol Use: No Hx Substance Use: No Hx Substance Use Treatment: No Allergies/Home Meds Allergies/Adverse Reactions: Allergies chlorpromazine [From Thorazine] Allergy (Verified 07/19/17 18:18) REDNESS shaking lamotrigine Allergy (Verified 07/19/17 18:18) RASH THORAZINE Allergy (Severe, Uncoded 07/19/17 18:18) SHAKING Home Medications: Home Meds Medication Instructions Recorded Confirmed ARIPiprazole [Abilify] 1 tab PO HS 05/18/17 05/27/17 Benztropine [Cogentin] 1 tab PO BID 05/18/17 05/27/17 Bupropion HCl [Bupropion Xl] 300 mg PO DAILY 05/18/17 05/27/17 FLUoxetine [Prozac] 1 tab PO DAILY 05/18/17 05/27/17 Simvastatin [Zocor] 1 tab PO DAILY 05/18/17 05/27/17 Valsartan/Hydrochlorothiazide 1 tab PO DAILY 05/18/17 05/27/17 [Diovan Hct 320-25 mg Tablet] amLODIPine [Norvasc] 1 tab PO DAILY 05/18/17 05/27/17 clonazePAM [Klonopin] 1 tab PO BID 05/18/17 05/27/17 Review of Systems - Physician Review All systems were reviewed & negative as marked: Yes - Review of Systems Constitutional: absent: Fevers Cardiovascular: absent: Chest Pain Gastrointestinal: absent: Abdominal Pain Musculoskeletal: absent: Back Pain, Neck Pain Neurological: absent: Headache Physical Exam Vital Signs Reviewed: Yes Vital Signs Temp Pulse Resp BP Pulse Ox 07/19/17 22:52 102 H 18 106/52 L 95 07/19/17 18:02 98 F 103 H 18 143/83 97 Temperature: Afebrile Blood Pressure: Normal Pulse: Regular Respiratory Rate: Normal Appearance: Positive for: Well-Appearing Pain Distress: None Mental Status: Positive for: Alert and Oriented X 3 - Systems Exam Head: Present: Atraumatic, Normocephalic Pupils: Present: PERRL Extroacular Muscles: Present: EOMI Conjunctiva: Present: Normal Mouth: Present: Moist Mucous Membranes Neck: Present: Normal Range of Motion Respiratory/Chest: Present: Clear to Auscultation, Good Air Exchange. No: Respiratory Distress, Accessory Muscle Use Cardiovascular: Present: Regular Rate and Rhythm, Normal S1, S2. No: Murmurs Abdomen: Present: Normal Bowel Sounds, Other (right lower redness next to patch (covering open wound, no pus, no discharge)). No: Tenderness, Distention, Peritoneal Signs Back: Present: Normal Inspection Upper Extremity: Present: Normal Inspection. No: Cyanosis, Edema Lower Extremity: Present: Normal Inspection. No: Edema Neurological: Present: GCS=15, CN II-XII Intact, Speech Normal Skin: Present: Warm, Dry, Normal Color. No: Rashes Psychiatric: Present: Alert, Oriented x 3, Normal Insight, Normal Concentration Medical Decision Making ED Course and Treatment: 07/19/17 18:20 Impression: 72 year old male brought in for AMS. Differential Diagnosis included but are not limited to: AMS rule out Electrolyte Abnormality vs. Intracranial Hemorrhage. Plan: -- EKG -- Head CT -- Chest X-ray -- Labs -- Blood Culture -- Urine Culture -- Urinalysis -- Reassess and disposition Prior Visits: Notes and results from previous visits were reviewed. Patient was last seen in the emergency department on 05/23/2017 brought in by EMS after neighbor found patient on the floor. Patient was admitted. Progress Notes: EKG: Ordered, reviewed, and independently interpreted the EKG. Rate : 97 BPM Rhythm : NSR Interpretation : No ST-segment elevations or depressions, no T-wave inversions, normal intervals. Comparison : No previous EKG for comparison. 07/19/2017 20:[address] FINDINGS: LIMITATIONS: Moderate streak/motion artifact. BRAIN: Tiny calcification incidentally noted in the right frontal periventricular white matter. Diffuse, age-related cortical atrophy and ventriculomegaly. No significant acute abnormality identified. No acute hemorrhage seen within the brain. No acute extra-axial fluid collections visualized. No evidence of significant mass effect within the brain. VENTRICLES: See above. BONES/JOINTS: No acute fractures or other acute bony abnormality noted. SOFT TISSUES: No acute abnormality of the visualized soft tissues is seen. VASCULATURE: Atherosclerotic calcification. SINUSES: Visualized paranasal sinuses appear clear. MASTOID AIR CELLS: Mastoid air cells appear clear. AUDITORY SYSTEM: Soft tissue in the right external auditory canal, most likely representing earwax. Recommend clinical correlation. IMPRESSION: No acute findings seen within the brain, allowing for motion artifact. See above for remaining findings. Dictator: Loida Paul MD 07/19/17 22:[address] Villa, who states pt is at his baseline mental status and can be discharge back to [place] if stable. Patient will be treated with Rocephin for UTI. BUN elevated. WBC elevated. BP has decreased and will continue to hydrate. Case discussed with Dr. Branch who will admit to her service to Medicine. Consult requested for Psych Dr. Kang - Lab Interpretations Lab Results: 07/19/17 19:20 07/19/17 19:20 Lab Results 07/19/17 22:05: Urine Color Yellow, Urine Appearance Cloudy, Urine pH 6.0, Ur Specific [place] 1.010, Urine Protein Trace H, Urine Glucose (UA) Negative, Urine Ketones Negative, Urine Blood Small H, Urine Nitrate Positive H, Urine Bilirubin Negative, Urine Urobilinogen 0.2, Ur Leukocyte Esterase Large H, Urine RBC 0 - 2, Urine WBC 25 - 30, Ur Epithelial Cells 0 - 2, Urine Bacteria Mod 07/19/17 19:20: TSH 3rd Generation 2.70 07/19/17 19:20: Sodium 142, Potassium 3.3 L, Chloride 100, Carbon Dioxide 28, Anion Gap 18, BUN 27 H, Creatinine 1.5, Est GFR ( Amer) 56, Est GFR (Non- Af Amer) 46, Random Glucose 107, Calcium 9.6, Phosphorus 3.1, Magnesium 2.1, Total Bilirubin 0.3, AST 51, ALT 30, Alkaline Phosphatase 89, Lactate Dehydrogenase 393, Total Creatine Kinase 696 H, CK-MB (CK-2) 1.6, CK-MB (CK-2) % Cancelled, Troponin I < 0.01, Total Protein 7.1, Albumin 4.0, Globulin 3.1, Albumin/Globulin Ratio 1.3 07/19/17 19:20: PT 12.5, INR 1.09 H, APTT 29.2 07/19/17 19:20: WBC 11.8 H, RBC 3.71, Hgb 11.8 L, Hct 35.7 L, MCV 96.2 D, MCH 31.8, MCHC 33.1, RDW 13.7, Plt Count 221, MPV 12.4 H, Gran % 60.3, Lymph % (Auto ) 28.2, [place] % (Auto) 7.0 H, Eos % (Auto) 4.2, Baso % (Auto) 0.3, Gran # 7.10 H , Lymph # (Auto) 3.3, [place] # (Auto) 0.8 H, Eos # (Auto) 0.5, Baso # (Auto) 0.03 07/19/17 18:22: POC Glucose (mg/dL) 104 I have reviewed the lab results: Yes - RAD Interpretation Radiology Orders: 07/19/17 18:20 HEAD W/O CONTRAST [CT] Stat 07/19/17 18:21 CHEST ONE VIEW [RAD] Stat - Medication Orders Current Medication Orders: Ceftriaxone Sodium (Rocephin 1 Gram Ivpb) 1 gm in 100 mls @ 200 mls/hr IVPB STAT STA PRN Reason: Protocol Stop: 07/19/17 23:17 Sodium Chloride (Sodium Chloride 0.9%) 1,000 mls @ 250 mls/hr IV .Q4H ALEXIA Discontinued Medications Sodium Chloride (Sodium Chloride 0.9%) 500 mls @ 999 mls/hr IV .Q31M STA Stop: 07/19/17 21:21 Last Admin: 07/19/17 20:55 Dose: 999 mls/hr eMAR Start Stop Document 07/19/17 20:55 RD (Rec: 07/19/17 20:55 RD [id number]) Intravenous Solution Start Date 07/19/17 Start Time 20:55 End Date 07/19/17 End time 21:25 Total Infusion Time 30 Sodium Chloride (Sodium Chloride 0.9%) 500 mls @ 999 mls/hr IV .Q31M STA Stop: 07/19/17 21:37 Last Admin: 07/19/17 21:26 Dose: 999 mls/hr eMAR Start Stop Document 07/19/17 21:26 RD (Rec: 07/19/17 21:38 RD [id number]) Intravenous Solution Start Date 07/19/17 Start Time 21:26 End Date 07/19/17 End time 21:56 Total Infusion Time 30 Potassium Chloride (K-Dur 20 Meq Er Tab) 40 meq PO STAT STA Stop: 07/19/17 20:08 Last Admin: 07/19/17 20:50 Dose: 40 meq - Scribe Statement The provider has reviewed the documentation as recorded by the Oliver Johnson Provider Scribe Attestation: All medical record entries made by the Oliver were at my direction and personally dictated by me. I have reviewed the chart and agree that the record accurately reflects my personal performance of the history, physical exam, medical decision making, and the department course for this patient. I have also personally directed, reviewed, and agree with the discharge instructions and disposition. Disposition/Present on Arrival - Present on Arrival Any Indicators Present on Arrival: No History of DVT/PE: No History of Uncontrolled Diabetes: No Urinary Catheter: No History of Decub. Ulcer: No History Surgical Site Infection Following: None - Disposition Have Diagnosis and Disposition been Completed?: Yes Diagnosis: UTI (urinary tract infection) Disposition: HOSPITALIZED Disposition Time: 22:56 Patient Plan: Admission Patient Problems: Current Active Problems Problem Status Onset UTI (urinary tract infection) Acute Condition: IMPROVED Additional Instructions: Mr Nolasco, thank you for letting us take care of you today. Your provider was Dr. Hall. You were treated for UTI. The emergency medical care you received today was directed at your acute symptoms. If you were prescribed any medication , please fill it and take as directed. It may take several days for your symptoms to resolve. Return to the Emergency Department if your symptoms worsen , do not improve, or if you have any other problems. Please contact your doctor or call one of the physicians/clinics you have been referred to that are listed on the Patient Visit Information form that is included in your discharge packet. Bring any paperwork you were given at discharge with you along with any medications you are taking to your follow up visit. Our treatment cannot replace ongoing medical care by a primary care provider (PCP) outside of the emergency department. Thank you for allowing the [facility] team to be part of your care today. If you had an X-Ray or CT scan: A Radiologist will review the ED reading if any change in treatment is needed we will contact you. If you had a blood, urine, or wound culture: It will take several days for the results, if any change in treatment is needed we will contact you. If you had an STI test: It will take 48 hours for the results. Please call after 1 week if you have not heard back. Prescriptions: Sulfamethoxazole/Trimethoprim [Bactrim DS 800 mg-160 mg] 1 tab PO Q12 #6 tab Referrals: Mckenna Villa MD [Staff Provider] - Follow up with primary Forms: [employer] (Ecuadorean)
[2017-07-19 19:46] LABS: ALB/GLOB RATIO 1.3 (1.1-1.8); ALT/SGPT 30 U/L (7-56); AST/SGOT 51 U/L (17-59); BLOOD UREA NITROGEN 27 mg/dL (7-21); CALCIUM 9.6 mg/dL (8.4-10.5); GFR AFRICAN-AMERICAN 56; GFR NON-AFRICAN AMERICAN 46; MAGNESIUM 2.1 mg/dL (1.7-2.2)
[2017-07-19 19:47] LABS: BASO # 0.03 K/mm3 (0.0-2.0); BASO % 0.3 % (0.0-3.0); EOS # 0.5 (0.0-0.7); EOS % 4.2 % (1.5-5.0); GRAN # 7.1 (1.4-6.5); GRAN % 60.3 % (50.0-68.0); HEMOGLOBIN 11.8 g/dL (14.0-18.0); LYMPH # 3.3 (1.2-3.4); LYMPH % 28.2 % (22.0-35.0); MEAN CELL VOLUME 96.2 fl (80.0-105.0); MEAN CORPUSCULAR HEMOGLOBIN 31.8 pg (25.0-35.0); MEAN CORPUSCULAR HGB CONC 33.1 g/dl (31.0-37.0); MEAN PLATELET VOLUME 12.4 fl (7.0-11.0); MONO # 0.8 (0.1-0.6); RBC 3.71 10^6/uL (3.5-6.1); RED CELL DISTRIBUTION WIDTH 13.7 % (11.5-14.5); WHITE BLOOD COUNT 11.8 10^3/ul (4.5-11.0)
[2017-07-19 19:56] LABS: INR 1.09 (0.93-1.08); PARTIAL THROMBOPLASTIN TIME 29.2 Seconds (25.1-36.5); PROTHROMBIN TIME 12.5 SECONDS (9.4-12.5)
[2017-07-19 19:58] LABS: TROPONIN I < 0.01 ng/mL
[2017-07-19 20:05] LABS: CK-MB 1.6 ng/mL (0.0-3.6)
[2017-07-19] MEDS ORDERED: Potassium Chloride 20 mEq ER Tab PO STA (20:07)
--- NOTE | 2017-07-19 20:28 | CT ---
EXAM: CT Head Without Intravenous Contrast EXAM DATE/TIME: 07/19/2017 6:20 PM CLINICAL HISTORY: 72 years old, male; Signs and symptoms; Altered mental status/memory loss TECHNIQUE: Axial computed tomography images of the head/brain without intravenous contrast. All CT scans at this facility use one or more dose reduction techniques, viz.: automated exposure control; ma/kV adjustment per patient size (including targeted exams where dose is matched to indication; i.e. head); or iterative reconstruction technique. Coronal and sagittal reformatted images were created and reviewed. COMPARISON: Prior head CT of 2017-05-30 FINDINGS: LIMITATIONS: Moderate streak/motion artifact. BRAIN: Tiny calcification incidentally noted in the right frontal periventricular white matter. Diffuse, age-related cortical atrophy and ventriculomegaly. No significant acute abnormality identified. No acute hemorrhage seen within the brain. No acute extra-axial fluid collections visualized. No evidence of significant mass effect within the brain. VENTRICLES: See above. BONES/JOINTS: No acute fractures or other acute bony abnormality noted. SOFT TISSUES: No acute abnormality of the visualized soft tissues is seen. VASCULATURE: Atherosclerotic calcification. SINUSES: Visualized paranasal sinuses appear clear. MASTOID AIR CELLS: Mastoid air cells appear clear. AUDITORY SYSTEM: Soft tissue in the right external auditory canal, most likely representing earwax. Recommend clinical correlation. IMPRESSION: - No acute findings seen within the brain, allowing for motion artifact. - See above for remaining findings.
--- NOTE | 2017-07-19 20:45 | CARD ---
APPROVED REPORT EKG Measurement Heart [id number] <Conclusion> Normal sinus rhythm Normal ECG
[2017-07-19] MEDS ORDERED: Sodium Chloride 0.9% 500 ML IV STA ×2 (20:51→21:07)
[2017-07-19 22:12] LABS: URINE BILIRUBIN NEGATIVE (NEGATIVE); URINE BLOOD SMALL (NEGATIVE); URINE GLUCOSE (UA) NEGATIVE (NEGATIVE); URINE LEUKOCYTE ESTERASE LARGE Leu/uL (NEGATIVE); URINE NITRATE POSITIVE (NEGATIVE); URINE PROTEIN TRACE mg/dL (<30 mg/dL); URINE UROBILINOGEN 0.2 E.U./dL (<1 E.U./dL)
[2017-07-19 22:16] LABS: URINE APPEARANCE CLOUDY (CLEAR); URINE COLOR YELLOW (YELLOW)
[2017-07-19 22:26] LABS: URINE BACTERIA MOD (NEG); URINE EPITHELIAL CELLS 0 - 2 /hpf (0-5); URINE RBC 0 - 2 /hpf (0-2); URINE WBC 25 - 30 /hpf (0-6)
[2017-07-19] MEDS ORDERED: Tmp-Smz 800 mg-160 mg DS Tab PO STA (22:34)
[2017-07-19] MEDS ORDERED: cefTRIAXone 1 gm 1 GM/100 ML BAG IVPB STA (22:48)
[2017-07-19] MEDS ORDERED: Sodium Chloride 0.9% 1,000 ML IV SCH (23:00)
[2017-07-19] MEDS ORDERED: Sodium Chloride 0.9% 1,000 ML IV STA (23:03)
--- NOTE | 2017-07-20 08:22 | RAD ---
PROCEDURE: CHEST RADIOGRAPH, 1 VIEW HISTORY: altered mental status COMPARISON: 05/23/2017 FINDINGS: LUNGS: Clear. PLEURA: No pneumothorax or pleural fluid seen. CARDIOVASCULAR: Normal. OSSEOUS STRUCTURES: No significant abnormalities. VISUALIZED UPPER ABDOMEN: Normal. OTHER FINDINGS: None. IMPRESSION: No active disease.
[2017-07-20] MEDS: cefTRIAXone 1 gm 1 GM/100 ML BAG IVPB SCH (10:09)
[2017-07-20] MEDS: buPROPion 300 mg/24 Hours XL Tab PO SCH (15:55)
[2017-07-20] MEDS: Sodium Chloride 0.9% 1,000 ML IV SCH (21:41)
--- NOTE | 2017-07-21 03:10 | HP ---
HISTORY OF PRESENT ILLNESS: Patient is a 72 years old, known to me from previous admission, lives in [facility], was found to be confused and disoriented. Somebody called ambulance and he was brought to emergency room. By the time he came to ER, he was more awake and alert. Denies any fever or chills. No nausea or vomiting. He said he fell and had some knee injury; other than that, he is doing well. PAST MEDICAL HISTORY: Significant for: 1. Hypertension. 2. Hyperlipidemia. 3. History of hypernatremia. 4. Recent fall. 5. History of CA lung, status post partial lobectomy. 6. History of schizophrenia, on multiple psych medications. ALLERGIES: ALLERGIC TO CHLORPROMAZINE AND THORAZINE. MEDICATIONS AT HOME: He is on Abilify 10 mg daily, bupropion 150 daily, benztropine 0.5 twice a day, valsartan 320 daily, Klonopin 1 mg twice a day, amlodipine 10 mg daily, Protonix and Prozac he is on 20 mg daily, simvastatin 20 mg daily. SOCIAL HISTORY: He is single, lives by himself in [facility]. REVIEW OF SYSTEMS: Generalized weakness and has difficulty remembering things. PHYSICAL EXAMINATION: GENERAL: Patient is awake and alert, able to answer simple questions, but fine. VITAL SIGNS: He is afebrile, pulse 86, respiration 18, blood pressure 100/57. LUNGS: Bilateral fair airflow. No rhonchi or crackle. HEART: S1 and S2 audible. ABDOMEN: Soft, nontender. No rebound, no guarding. NEUROLOGIC: He is awake and alert, able to communicate. LABORATORY DATA: WBC is 11.8, hemoglobin 11.8, hematocrit 35.7, platelet 221. PT 12.5, INR 1.09. Chemistry: Sodium 142, potassium 3.3, chloride 102, CO2 of 28, BUN 27, creatinine 1.5, blood sugar of 107, CPK 694. Urinalysis shows positive nitrite, large leukocyte, and wbc's 25 to 30. X-ray, chest, is unremarkable and EKG shows normal electrocardiogram. ASSESSMENT: 1. Altered mental status, probably secondary to urinary tract infection. 2. History of schizophrenia. 3. History of depression. 4. Hypertension. 5. Hyperlipidemia. PLAN: We will resume his usual medication. Start him on Rocephin. Follow up urine cultures. We will consult to adjust psych medication. Physical therapy evaluation has been requested. We will follow up the patient in a.m. Preston Branch MD
[2017-07-21] MEDS: Pantoprazole 40 mg EC Tab PO SCH (05:07)
[2017-07-21 07:09] LABS: BASO # 0.03 K/mm3 (0.0-2.0); BASO % 0.4 % (0.0-3.0); EOS # 0.3 (0.0-0.7); EOS % 4.6 % (1.5-5.0); GRAN # 4.26 (1.4-6.5); GRAN % 58.9 % (50.0-68.0); HEMOGLOBIN 10.3 g/dL (14.0-18.0); LYMPH % 27.5 % (22.0-35.0); MEAN CELL VOLUME 97.3 fl (80.0-105.0); MEAN CORPUSCULAR HEMOGLOBIN 31.4 pg (25.0-35.0); MEAN CORPUSCULAR HGB CONC 32.3 g/dl (31.0-37.0); MEAN PLATELET VOLUME 12.1 fl (7.0-11.0); MONO # 0.6 (0.1-0.6); MONO % 8.6 % (1.0-6.0); RBC 3.28 10^6/uL (3.5-6.1); RED CELL DISTRIBUTION WIDTH 13.7 % (11.5-14.5); WHITE BLOOD COUNT 7.2 10^3/ul (4.5-11.0)
[2017-07-21 07:31] LABS: ALB/GLOB RATIO 1.2 (1.1-1.8); ALBUMIN 3.3 g/dL (3.0-4.8); ALT/SGPT 31 U/L (7-56); AST/SGOT 37 U/L (17-59); BLOOD UREA NITROGEN 11 mg/dL (7-21); CALCIUM 9.1 mg/dL (8.4-10.5); GFR AFRICAN-AMERICAN > 60; GFR NON-AFRICAN AMERICAN > 60
[2017-07-21] MEDS: cefTRIAXone 1 gm 1 GM/100 ML BAG IVPB SCH (10:13)
[2017-07-21] MEDS: buPROPion 300 mg/24 Hours XL Tab PO SCH (10:14)
[2017-07-21] MEDS: Sodium Chloride 0.9% 1,000 ML IV SCH (10:14)
--- NOTE | 2017-07-21 18:28 | PN ---
DATE: SUBJECTIVE: The patient is a 72-year-old, seen and examined, has difficulty getting out of bed, has difficulty walking, somewhat confused, but much better than before. PHYSICAL EXAMINATION: VITAL SIGNS: He is afebrile, pulse 80, respirations 20, blood pressure 122/80. LUNGS: Bilateral good airflow. No rhonchi or crackle. HEART: S1 and S2 audible. ABDOMEN: Soft, nontender. No rebound, no guarding. NEUROLOGIC: The patient is awake and alert, able to communicate, but forgetful. LABORATORY DATA: His sodium 145, potassium 3.7, chloride 108, CO2 of 28. BUN 11, creatinine 1.0. Blood sugar of 92. Urine culture is positive for Gram-negative rods, most probably E. coli, pending sensitivity. ASSESSMENT: 1. Altered mental status secondary to urinary tract infection. 2. Mild dementia. 3. Schizophrenia. 4. Hypertension. 5. Hyperlipidemia. PLAN: Currently, the patient is on Abilify. He is on Ativan. He is taking Cogentin. He is on valsartan. We will continue him on atorvastatin, amlodipine, and Protonix. Since the patient is eating well, we will discontinue his IV fluid, encourage p.o. intake and p.o. fluids, and discussed with Dr. Carroll. He is recommending his transfer to psych once he start walking a little better, so I will request for TCU and he can be transferred there once he is strong physically. He can be transferred to psych for adjustment of psych medication. Preston Branch MD
--- NOTE | 2017-07-21 23:00 | CON ---
DATE: PSYCHIATRIC CONSULTATION HISTORY OF PRESENT ILLNESS: Patient is a 72-year-old white male. I reviewed the chart. I discussed the case with social media analyst and attending physician. Patient was admitted here, found to be confused and found to have an acute urinary tract infection with a gram-negative bacilli. Patient had been recently treated for a debilitated state at a local acute care facility from where he was discharged and then instead of being sent home, sent to the emergency room here. Patient is well known to me. I have known him for over 30 years. I last saw him in my office in 04/2017. PAST MEDICAL HISTORY: Patient's past history includes chronic schizoaffective disorder. He has had multiple psychiatric hospitalizations in the past, also has a history of hypertension, hyperlipidemia. He has a history of lung carcinoma with a lobectomy. Patient has been on psychotropic medicines for most of his adult life. PERSONAL HISTORY: He lives alone. He is not , no children. He has been on social security disability for many years. He lives in public housing. CURRENT MEDICATIONS: Included Abilify 10 mg at bedtime, clonazepam 1 mg b.i.d., Lipitor 10 mg daily, Norvasc 10 mg daily, Protonix 40 mg q.a.m., Prozac 20 mg daily, Rocephin 1 g IV PB, and Wellbutrin 300 mg daily. CURRENT LABORATORY DATA: His white count on admission was 11,800, currently 7.2; hemoglobin 10.3; platelet count 174,000. Patient's metabolic profile is all essentially within normal range except for a chloride of 108. Patient had a CAT scan of the head, which is reported as normal. An electrocardiogram interpreted as normal sinus rhythm with a heart rate of 96. Patient had a chest x-ray, which was reported as showing no pneumothorax or pleural fluid. His lungs are clear. No active disease. REVIEW OF SYSTEMS: Negative for 12-point review, except for his gait is unsteady. He complains of healing lacerations on lower legs. PHYSICAL EXAMINATION: VITAL SIGNS: Blood pressure is 122/80, pulse 80, afebrile, respirations 20 per minute. PSYCHIATRIC: His mental status, he is awake, he recognizes me. His affect is somewhat flat. He is disoriented to months and day. Patient's recent memory is somewhat clouded. Has difficulty enumerating recent events. Patient did not know the name of the acute rehab where he was staying for 2 months. Patient denies hallucinations, depression, suicidal ideation. His affect is flat. He looks bradykinetic with some masked facies. No tremor. He has difficulty sitting up in bed, on the side of the bed, and standing. Patient's thought process is slow. Judgment is somewhat impaired. IMPRESSION: Patient has a history of probable mild delirium related to acute urinary infection. Patient has a history of chronic schizoaffective disorder, this having adverse effects from psychotropic medication, was possibly pseudo-parkinsonian side effects. Patient also has a history of hypertension, carcinoma of the lung in the past with a lobectomy, with current gait dysfunction. Patient is totally unable to sign to care for himself due to impaired mental status and physical condition. SUGGESTIONS: Patient needs physical therapy, transitional care, perhaps psychiatric inpatient treatment. I will lower his Abilify from 10 mg down to 2.5 mg, lower Cogentin to 0.5 mg b.i.d. Discontinue clonazepam. Start Ativan just 1 mg at bedtime and 0.5 mg daily for anxiety. We will decrease Prozac to 10 mg p.o. q.a.m. and hold Wellbutrin at this time. We will order MRI scan of the head to rule out posterior fossa lesions due to impaired gait. We discussed the case at length with Dr. Branch. Patient will need follow up care and we will reevaluate. Srinivas Carroll MD
[2017-07-22] MEDS: Pantoprazole 40 mg EC Tab PO SCH (06:34)
[2017-07-22] MEDS: cefTRIAXone 1 gm 1 GM/100 ML BAG IVPB SCH (09:28)
--- NOTE | 2017-07-22 12:41 | MRI ---
PROCEDURE: MRI BRAIN WITHOUT CONTRAST HISTORY: Acute confusion, gait impairment COMPARISON: Noncontrast head CT from 07/19/2017 TECHNIQUE: Multiplanar, multisequence MR images of the brain were obtained without intravenous contrast enhancement. FINDINGS: HEMORRHAGE: None DWI: No evidence of an acute or early subacute infarction. BRAIN PARENCHYMA: There are moderate chronic microangiopathic changes. There is no mass, mass effect or abnormal extra-axial fluid collection. The midline sagittal structures are normal. VENTRICLES: There is moderate age-related global parenchymal volume loss and proportionate enlargement of the ventricles and cortical sulci. CRANIUM: There is normal bone marrow signal pattern. ORBITS: Grossly unremarkable. PARANASAL SINUSES/MASTOIDS: Predominantly clear. VASCULAR SYSTEM: There are normal signal voids in the larger intracranial arteries. OTHER FINDINGS: None. IMPRESSION: No acute intracranial abnormality. Moderate chronic microangiopathic changes and moderate age-related global parenchymal volume loss.
--- NOTE | 2017-07-22 23:39 | CON ---
DATE: HISTORY OF PRESENT ILLNESS: Patient is a 72-year-old male who Psychiatry is following on the medical floor for confusion. Patient was seen by his long-time psychiatrist, Dr. Carroll yesterday on 07/21/2017. I reviewed Dr. Carroll's consultation, which indicated the patient was disoriented, was , and had difficulty with recent memory. Nonetheless, he denies hallucinations, depression or suicidal thoughts. I met with the patient at the bedside this morning, and he does appear to be improving regarding his mental status. He was able to provide correct month, year, location, and has a superficial understanding of the circumstances leading to his hospitalization. Patient's responses are more spontaneous, and speech is more fluent than what was described by notes yesterday. He continues to deny depression, suicidal thoughts or hallucinations and he indicates that he slept well. Patient also reports that he is currently tolerating his psychiatric medications and denies any side effects from them. on the unit according to overnight staff notes, which do indicate periods of delayed verbal responses and confusion. Overall, his orientation and insight and judgement are improving, though this improvement is tenuous consistent with the diagnosis of likely delirium. Vital signs were reviewed, and the recent labs were reviewed by this provider. PSYCHIATRIC MEDICATIONS: Include Abilify 2.5 mg p.o. at bedtime, Cogentin 0.5 mg p.o. b.i.d., Prozac 10 mg daily, Ativan 1 mg p.o. at bedtime, Ativan 0.5 mg p.o. 10 a.m. IMPRESSION: I agree with Dr. Carroll that he is likely suffering delirium related to his acute urinary infection. This is in the background of chronic schizoaffective disorder. Patient's orientation, focus, memory are improving. RECOMMENDATIONS: Recommend psychiatric medications by Dr. Carroll. Psychiatry will continue follow up with patient and I will meet with him again tomorrow and monitor his progress and tolerance to medication. We will continue to discuss possible disposition to rehab versus psychiatric unit for further care. Fidelia Barron MD
[2017-07-23] MEDS: Pantoprazole 40 mg EC Tab PO SCH (06:18)
[2017-07-23] MEDS: cefTRIAXone 1 gm 1 GM/100 ML BAG IVPB SCH (09:29)
[2017-07-23 17:27] VITALS: RESP 18
--- NOTE | 2017-07-24 00:19 | PN ---
DATE: 07/23/2017 SUBJECTIVE: He is comfortable in bed, in no acute distress. He is alert, oriented x3. He was admitted with urosepsis, which is resolving. Blood pressure controlled with current medication. He also has leukocytosis that has resolved. Baseline anemia. REVIEW OF SYSTEMS: As per HPI, rest of 12-point review of systems negative. PHYSICAL EXAMINATION: GENERAL: Comfortable in bed, in no acute distress. VITAL SIGNS: Temperature 98.7, heart rate 80 per minute, respiratory rate 18 per minute, blood pressure 120/80. NECK: No lymphadenopathy. CHEST: Air entry present, equal bilaterally. No added sounds. CARDIOVASCULAR: S1, S2 normal. No murmur. No gallop. ABDOMEN: Soft, nontender. No hepatosplenomegaly. EXTREMITIES: No edema. NEUROLOGICAL: Awake, alert, oriented x3. Communicative. LABORATORY DATA: White count 11.8, today's white count is 7.2, hemoglobin 10.3, hematocrit 31.9, platelet 174. Sodium 135, potassium 3.7, creatinine 1, creatine kinase 696. MEDICATIONS: Norvasc 10 mg daily, Abilify 2.5 mg at bedtime, Lipitor 10 mg daily, ceftriaxone, Ativan, Protonix, Diovan 320 mg p.o. daily. ASSESSMENT AND PLAN: 1. Urosepsis, resolving. Currently on IV antibiotics, ceftriaxone. ID following. 2. Dementia, stable. 3. Hypertension, blood pressure controlled on current medication. 4. Anemia and leukocytosis. Leukocytosis, resolved. Anemia, hemoglobin and hematocrit stable. We will continue to monitor the blood counts. 5. Urine culture, Escherichia coli, currently being treated, followed by ID. Lupe Ruggiero MD
[2017-07-24] MEDS: Pantoprazole 40 mg EC Tab PO SCH (05:24)
--- NOTE | 2017-07-24 09:55 | PN ---
DATE: 07/22/2017 SUBJECTIVE: Patient is 72 years old, seen and examined, seems to be confused, disoriented, does not look in any distress. He has a healing wound on his right chest and both knees. He is generally weak and has difficulty walking. OBJECTIVE: VITAL SIGNS: He is afebrile. Pulse 78, respirations 18, blood pressure 115/67. LUNGS: Bilateral fair airflow. No rhonchi or crackles. HEART: S1 and S2 audible. ABDOMEN: Soft and nontender. No rebound. No guarding. NEUROLOGICAL: The patient is awake and alert, but confused and disoriented. LABORATORY DATA: Vitamin D is 26.8. Urinalysis shows E. coli sensitive to Rocephin. His medication can be switched to p.o., but he needs rehab. I will request for TCU evaluation If he is a candidate, can be transferred there, otherwise Dr. Carroll is willing to accept him in Psych unit to adjust his medication. Preston Branch MD
[2017-07-24] MEDS ORDERED: Cefpodoxime (Vantin) 200 mg Tab PO SCH (10:00)
--- NOTE | 2017-07-24 10:39 | CON ---
DATE: 07/23/2017 HISTORY OF PRESENT ILLNESS: Patient is a 72-year-old male who is being followed by Psychiatry on the medical floor for confusion. Patient was seen by his long-time psychiatrist, Dr. Carroll on 07/21/2017 and then seen by this provider on 07/22/2017. I am following up with the patient again on 07/23/2017 to monitor patient's orientation and tolerance to the medications. I met with the patient again at bedside this morning and he recalls me from my visit with him yesterday. He continues to demonstrate improving mental status. Again, he was able to provide the correct location and year, however, was not able to recall the correct month at this time. He still has the superficial understanding of circumstances leading to this hospitalization and his responses are more spontaneous, and smooth and has been described by notes on Monday. He continues to deny depression, suicidal thoughts, or hallucinations and indicates that he slept very well. He reports that he feels fairly good and hopeful and he has been tolerating his medications. His only discomfort time includes dry mouth. Overall, his orientation and insight and judgement are improving, consistent with improving delirium. Affect is generally consistent with his reported mood and he does not appear to be responding to internal stimuli and responses are coherent and generally relevant to questioning. Vital signs are reviewed as well as recent labs were reviewed by this provider. PSYCHIATRIC MEDICATIONS: Include Abilify 2.5 mg p.o. at bedtime, Cogentin 0.5 mg p.o. b.i.d., Prozac 10 mg p.o. daily, Ativan 1 mg p.o. at bedtime and 0.5 mg p.o. at 10 a.m. IMPRESSION: Patient is demonstrating improving delirium which is likely related to his acute urinary infection. This is in the background of chronic schizoaffective disorder. Patient's orientation, focus, and memory are showing sustained improvement, though does not appear entirely resolved. RECOMMENDATIONS: We will continue with recommending psychiatric medications by Dr. Carroll and Psychiatry will continue to follow up with patient; specifically will follow up again on 07/24/2017, by Psychiatry team. Consider patient for possible disposition to rehab versus psychiatric unit for further care. Please note unfortunately, there are no vacancies on the Psychiatric Unit at this time. Fidelia Barron MD [facility] # [id number]
--- NOTE | 2017-07-24 17:23 | PN ---
DATE: SUBJECTIVE: The patient is a 72-year-old male currently being treated for urinary infection, mild delirium, confusion. I spoke with the patient, I spoke with the social media job titles, I spoke with the family physician. The patient apparently needs to give power of boat patcher plastic to a family member or an boat patcher plastic,so that they can organize his affairs, go to his apartment, get mail, get phone numbers. The patient is unable to care for himself. His mental status reveals he is awake, he is alert. His recent memory is somewhat impaired. He is disoriented to day and month. I discussed at length, with the patient need to get power of boat patcher plastic. He understands this and realizes the only thing that he could possibly do in order to have access to his finances. I reviewed the patient's MRI of the brain. He has ventricular dilatation and global cerebral atrophy consistent with mild mixed Alzheimer and vascular dementia. The patient's current laboratory data of most recent nature, he has a vitamin D level of 26.8. He has gram negative bacilli in his urine, has shown no growth in his blood. CURRENT MEDICATIONS: Include Abilify 2.5 mg at bedtime, Ativan 1 mg at bedtime and 0.5 mg in the morning, Cogentin 0.5 mg b.i.d., Diovan, HydroDIURIL, Lipitor, Norvasc, Protonix, Prozac 10 mg daily, and Vantin 200 mg p.o. q. 12 hours. REVIEW OF SYSTEMS: He feels slightly dizzy. He has weakness in his leg. Other 12-point review noncontributory. I spoke with his physical therapist at bedside. PHYSICAL EXAMINATION: VITAL SIGNS: His blood pressure is 95/62, pulse of 78, and respirations 18 per minute. 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 He in m opinion capable of rendering paper work for power of boat patcher plastic. Patient will need subacute and log term care. PLAN: I spoke with social media job titles and they will arrange a power of boat patcher plastic, executed with an boat patcher plastic whom they need to go his apartment and gather his affairs to bring to the hospital. This was discussed with the attending physician. Will continue current psychotropic medications. Srinivas Carroll MD [facility]
[2017-07-24 17:55] VITALS: BP 120/63; PULSE 109; TEMP 97.2; O2SAT 97
--- NOTE | 2017-07-25 09:04 | PN ---
DATE: 07/24/2017 SUBJECTIVE: Patient is 72 years old, seen and examined, seems to be confused and disoriented, answers simple questions, eating and tolerating. PHYSICAL EXAMINATION: VITAL SIGNS: Patient is afebrile, pulse 78, respirations 18, blood pressure 95/62. LUNGS: Bilateral good air flow. No rhonchi or crackle. HEART: S1, S2 audible. ABDOMEN: Soft, nontender. No rebound, no guarding. NEUROLOGIC: He is awake and alert, somewhat confused and disoriented. LABORATORY DATA: Vitamin D is 26.8. Urine analysis shows E. coli sensitive to p.o. antibiotics, IV has been changed to p.o. ASSESSMENT: 1. Status post altered mental status, seems to be clearing up. 2. History of paranoid schizophrenia, on multiple psych medications. 3. Hypertension. 4. Hyperlipidemia. PLAN: I discussed with . He needs to be in subacute rehab, going to long-term rehab since he is getting more and more forgetful and weaker and he has had multiple falls at home, so as soon as disposition plan is made, patient will be discharged. Preston Branch MD
== END 2017-07-24 21:50 | DRG 690 ==
LOC: ED 18:02 → ERH 22:53 → 5RNO 07-20 00:22
PROVIDERS: ADMIT Internal Medicine; ATTEND Internal Medicine
DX: N39.0 Urinary tract infection, site not specified (principal); D64.9 Anemia, unspecified; G20 Parkinson's disease; F25.0 Schizoaffective disorder, bipolar type; G30.9 Alzheimer's disease, unspecified; F01.50 Vascular dementia, unspecified severity, without behavioral disturbance, psychotic disturbance, mood disturbance, and anxiety; E78.5 Hyperlipidemia, unspecified; F02.80 Dementia in other diseases classified elsewhere, unspecified severity, without behavioral disturbance, psychotic disturbance, mood disturbance, and anxiety; I10 Essential (primary) hypertension; K21.9 Gastro-esophageal reflux disease without esophagitis; Z79.899 Other long term (current) drug therapy; Z85.118 Personal history of other malignant neoplasm of bronchus and lung; Z90.2 Acquired absence of lung [part of]; B96.20 Unspecified Escherichia coli [E. coli] as the cause of diseases classified elsewhere

== ENCOUNTER 2018-02-19 15:51 | Inpatient (IN) | payer MEDICARE, BC ==
[2018-02-19] MEDS ORDERED: TDAP Vaccine 0.5 mL Syr IM ONE (16:45)
[2018-02-19] MEDS ORDERED: Clindamycin 600mg/50ml D5W 600 MG/50 ML VIAL IVPB STA (16:49)
--- NOTE | 2018-02-19 17:11 | ED PDOC ---
Arrival/HPI - General Chief Complaint: Lower Extremity Problem/Injury Time Seen by Provider: 02/19/18 16:33 Historian: Patient - History of Present Illness Narrative History of Present Illness (Text): 72 year old male with PMHx of hypertension and hyperlipidemia presents to Emergency Department for evaluation of bilateral leg swelling for more than 1 week. Patient notes he has an anxiety disorder and states he frequently picks the skin" of his legs. Also notes prior visit with Dr. Branch who sent him to the Emergency Department. Denies trauma, injuries, recent travels, chest pain, fever, chills, nausea, vomiting, and other associated symptoms. 02/19/18 17:11 Time/Duration: Prior to Arrival, > week (symptoms lasting more than 1 week ) Past Medical History - Provider Review Nursing Documentation Reviewed: Yes - Travel History Have you recently traveled outside [place] w/in the past 3 mons?: No - Infectious Disease Hx of Infectious Diseases: None - Tetanus Immunization Tetanus Immunization: Unknown - Cardiac Hx Hypertension: Yes - Pulmonary Hx Respiratory Disorders: No Other/Comment: History of lung CA, with lobectomy - Neurological Hx Parkinson's Disease: Yes - HEENT Hx HEENT Disorder: No - Renal Hx Renal Disorder: No - Endocrine/Metabolic Hx Endocrine Disorders: No - Hematological/Oncological Hx Blood Disorders: No - Integumentary Hx Dermatological Disorder: No - Musculoskeletal/Rheumatological Hx Falls: Yes Hx Unsteady Gait: Yes - Gastrointestinal Hx Gastroesophageal Reflux: Yes Other/Comment: dysphagia; oropharyngeal phase - Genitourinary/Gynecological Hx Genitourinary Disorders: No - Psychiatric Hx Anxiety: Yes Hx Depression: Yes Hx Schizophrenia: Yes Hx Substance Use: No Other/Comment: schizoaffective disorder; bipolar type - Surgical History Other/Comment: maxillary Fx right side - Anesthesia Hx Anesthesia: No - Suicidal Assessment Feels Threatened In Home Enviroment: No Family/Social History - Physician Review Nursing Documentation Reviewed: Yes Family/Social History: Unknown Family HX Smoking Status: Unknown If Ever Smoked Hx Alcohol Use: No Hx Substance Use: No Hx Substance Use Treatment: No Allergies/Home Meds Allergies/Adverse Reactions: Allergies chlorpromazine [From Thorazine] Allergy (Verified 02/19/18 16:55) REDNESS shaking lamotrigine Allergy (Verified 02/19/18 16:55) RASH THORAZINE Allergy (Severe, Uncoded 02/19/18 16:55) SHAKING Home Medications: Home Meds Medication Instructions Recorded Confirmed ARIPiprazole [Abilify] 1 tab PO HS 05/18/17 07/19/17 Benztropine [Cogentin] 1 tab PO BID 05/18/17 07/19/17 Bupropion HCl [Bupropion Xl] 300 mg PO DAILY 05/18/17 07/19/17 FLUoxetine [Prozac] 1 tab PO DAILY 05/18/17 07/19/17 Simvastatin [Zocor] 1 tab PO DAILY 05/18/17 07/19/17 Valsartan/Hydrochlorothiazide 1 tab PO DAILY 05/18/17 07/19/17 [Diovan Hct 320-25 mg Tablet] amLODIPine [Norvasc] 1 tab PO DAILY 05/18/17 07/19/17 clonazePAM [Klonopin] 1 tab PO BID 05/18/17 07/19/17 Review of Systems - Review of Systems Constitutional: absent: Fevers, Other (chills) Cardiovascular: absent: Chest Pain Gastrointestinal: absent: Nausea, Vomiting Musculoskeletal: Other (bilateral leg swelling) Physical Exam Vital Signs Temp Pulse Resp BP Pulse Ox 02/19/18 20:22 118/64 02/19/18 19:48 98.6 F 92 H 18 118/64 97 02/19/18 19:33 68 18 138/78 98 02/19/18 18:00 71 18 145/86 98 02/19/18 16:31 98.2 F 76 18 149/95 H 98 Temperature: Afebrile Blood Pressure: Hypertensive Pulse: Regular Respiratory Rate: Normal Appearance: Positive for: Non-Toxic Mental Status: Positive for: Alert and Oriented X 3 - Systems Exam Head: Present: Atraumatic, Normocephalic Pupils: Present: PERRL Extroacular Muscles: Present: EOMI Mouth: Present: Moist Mucous Membranes Neck: Present: Normal Range of Motion Respiratory/Chest: No: Respiratory Distress, Wheezes, Rales, Rhonchi Cardiovascular: Present: Murmurs (systolic ) Abdomen: No: Tenderness, Distention, Peritoneal Signs Upper Extremity: Present: Normal ROM (x2) Lower Extremity: Present: Edema (pitting), Other (Right lower extremity: several lesions with scab, warm to the touch, mild erythema, no tenderness. ). No: NORMAL PULSES (Distal pulses weak. 2+ pulses greater on right leg than the left leg.), Tenderness, Deformity Medical Decision Making ED Course and Treatment: Plan: --Blood sent --Blood culture sent --EKG --U/S Duplex Lower extremity vein bilateral --Chest X-ray --Given: TDAP Vaccine and Clindamycin. 02/19/18 19:42 EKG : NSR at 98 bpm, no acute ST changes, as read by PA Chest X-Ray : NAD, as read by PA US doppler b/l LE : no DVT, as per US tech Labs reviewed : wbc 13, hgb 10.9, lactate 1.1, trop (-), BNP 72 Case d/w Dr. Branch, request that the patient be admitted with consult to Dr. Rodriguez and agrees with administering lasix to the patient. On reevaluation, patient reports no chest pain, or SOB. On exam, patient remains awake alert and oriented 3 in no acute distress. Labs and diagnostic results d/w the patient. Patient notified of plan for admission. Patient states he fully agrees with and understands further plan of care. I have given the patient opportunity to ask any additional questions. - Lab Interpretations Lab Results: 02/19/18 17:21 02/19/18 17:21 Lab Results 02/19/18 17:21: pO2 57 H, VBG pH 7.43, VBG pCO2 48.0, VBG HCO3 31.9 H, VBG Total CO2 33.4 H, VBG O2 Sat (Calc) 93.5 H, VBG Base Excess 6.4 H, VBG Potassium 3.7, Sodium 141.0, Chloride 107.0, Glucose 105, Lactate 1.1, FiO2 21.0, Venous Blood Potassium 3.7 02/19/18 17:21: Sodium 140, Chloride 103, Potassium 3.7, Carbon Dioxide 27, Anion Gap 13, BUN 20, Creatinine 1.2, Est GFR ( Amer) > 60, Est GFR (Non- Af Amer) 60, Random Glucose 108, Calcium 8.9, Magnesium 2.0, Total Bilirubin 0.5, AST 28, ALT 22, Alkaline Phosphatase 104, Lactate Dehydrogenase 572, Total Creatine Kinase 70, Troponin I < 0.01, NT-Pro-B Natriuret Pep 72.1, Total Protei n 7.4, Albumin 4.1, Globulin 3.3, Albumin/Globulin Ratio 1.2 02/19/18 17:21: PT 11.8, INR 1.03, APTT 27.5 02/19/18 17:21: WBC 13.3 H D, RBC 3.39 L, Hgb 10.9 L, Hct 32.3 L, MCV 95.3, MCH 32.2, MCHC 33.7, RDW 13.4, Plt Count 234, MPV 10.2, Gran % 67.9, Lymph % (Auto) 19.5 L, Fergus % (Auto) 8.9 H, Eos % (Auto) 3.5, Baso % (Auto) 0.2, Gran # 9.06 H, Lymph # (Auto) 2.6, Fergus # (Auto) 1.2 H, Eos # (Auto) 0.5, Baso # (Auto) 0.03 - RAD Interpretation Radiology Orders: 02/19/18 16:43 CHEST TWO VIEWS (PA/LAT) [RAD] Stat DUPLEX LOWER EXTRM VEIN BILAT [US] Stat Chest X-ray FINDINGS: LINES AND TUBES: None. LUNG AND PLEURA: The lungs are well inflated and clear. No pleural effusion or pneumothorax. HEART AND MEDIASTINUM: The heart is not enlarged. The hilar and mediastinal contours are within normal limits. SKELETAL STRUCTURES: The bony structures are within normal limits for the patient's age. VISUALIZED UPPER ABDOMEN: Normal. OTHER FINDINGS: None. IMPRESSION: No active pulmonary disease. Narcotics Investigator: Radiologist - EKG Interpretation EKG Interpretation (Text): Normal sinus rhythm Normal ECG Rate: 98 bpm - Medication Orders Current Medication Orders: Aripiprazole (Abilify) 10 mg PO HS ALEXIA PRN Reason: Protocol Aspirin (Aspirin Chewable) 81 mg PO DAILY ALEXIA Atorvastatin Calcium (Lipitor) 10 mg PO DIN ALEXIA Benztropine Mesylate (Cogentin) 1 mg PO BID ALEXIA Last Admin: 02/19/18 20:22 Dose: 1 mg Clonazepam (Klonopin) 1 mg PO BID ALEXIA PRN Reason: Protocol Last Admin: 02/19/18 20:22 Dose: 1 mg Fluoxetine HCl (Prozac) 20 mg PO DAILY ALEXIA Furosemide (Lasix) 40 mg IVP DAILY ALEXIA Ceftriaxone Sodium (Rocephin 1 Gram Ivpb) 1 gm in 100 mls @ 100 mls/hr IVPB DAILY ALEXIA PRN Reason: Protocol Vancomycin HCl (Vancomycin 1gm) 1 gm in 250 mls @ 167 mls/hr IVPB Q12H ALEXIA PRN Reason: Protocol Last Admin: 02/19/18 20:21 Dose: 167 mls/hr eMAR Start Stop Document 02/19/18 20:21 EQ (Rec: 02/19/18 20:21 EQ [id number]) Intravenous Solution Start Date 02/19/18 Start Time 20:21 Mupirocin (Bactroban Ointment) 0.5 gm TOP BID ALEXIA Last Admin: 02/19/18 20:22 Dose: 0.5 gm Pantoprazole Sodium (Protonix Ec Tab) 40 mg PO 0600 ALEXIA Discontinued Medications Furosemide (Lasix) 20 mg IVP STAT STA Stop: 02/19/18 19:08 Last Admin: 02/19/18 20:22 Dose: 20 mg MAR Blood Pressure Document 02/19/18 20:22 EQ (Rec: 02/19/18 20:22 EQ [id number]) Blood Pressure Blood Pressure (100/60-150/90) 118/64 IVP Administration Document 02/19/18 20:22 EQ (Rec: 02/19/18 20:22 EQ [id number]) Charges for Administration # of IVP Administrations 1 Clindamycin Phosphate (Cleocin) 600 mg in 50 mls @ 50 mls/hr IVPB STAT STA PRN Reason: Protocol Stop: 02/19/18 17:48 Last Admin: 02/19/18 18:40 Dose: 50 mls/hr eMAR Start Stop Document 02/19/18 18:40 EQ (Rec: 02/19/18 18:40 EQ [id number]) Intravenous Solution Start Date 02/19/18 Start Time 18:40 Ceftriaxone Sodium (Rocephin 1 Gram Ivpb) 1 gm in 100 mls @ 100 mls/hr IVPB DAILY AELXIA PRN Reason: Protocol Non-Formulary Medication (Simvastatin [Zocor]) 1 tab PO DAILY ALEXIA Tetanus/Reduced Diphtheria/Acell Pertussis (Boostrix Vaccine Inj) 0.5 ml IM .ONCE ONE Stop: 02/19/18 16:46 Last Admin: 02/19/18 18:40 Dose: 0.5 ml Immunization Registry Document 02/19/18 18:40 EQ (Rec: 02/19/18 18:40 EQ [id number]) Immunization Registry Consent Date 02/19/18 - PA / COPY AND PRINT ASSOCIATE / Resident Statement MD/DO has reviewed & agrees with the documentation as recorded. - Scribe Statement The provider has reviewed the documentation as recorded by the Scribe (Mary Jovel) All medical record entries made by the Scribe were at my direction and personally dictated by me. I have reviewed the chart and agree that the record accurately reflects my personal performance of the history, physical exam, medical decision making, and the department course for this patient. I have also personally directed, reviewed, and agree with the discharge instructions and disposition. Disposition/Present on Arrival - Present on Arrival Any Indicators Present on Arrival: No History of DVT/PE: No History of Uncontrolled Diabetes: No Urinary Catheter: No History of Decub. Ulcer: No History Surgical Site Infection Following: None - Disposition Have Diagnosis and Disposition been Completed?: Yes Diagnosis: Cellulitis, Leg edema Disposition: HOSPITALIZED Disposition Time: 18:20 Patient Plan: Admission Patient Problems: Current Active Problems Problem Status Onset Cellulitis Acute Leg edema Acute Condition: STABLE
[2018-02-19 17:25] LABS: BASO # 0.03 K/mm3 (0.0-2.0); BASO % 0.2 % (0.0-3.0); EOS # 0.5 (0.0-0.7); EOS % 3.5 % (1.5-5.0); GRAN # 9.06 (1.4-6.5); GRAN % 67.9 % (50.0-68.0); HEMOGLOBIN 10.9 g/dL (14.0-18.0); LYMPH # 2.6 (1.2-3.4); LYMPH % 19.5 % (22.0-35.0); MEAN CELL VOLUME 95.3 fl (80.0-105.0); MEAN CORPUSCULAR HEMOGLOBIN 32.2 pg (25.0-35.0); MEAN CORPUSCULAR HGB CONC 33.7 g/dl (31.0-37.0); MEAN PLATELET VOLUME 10.2 fl (7.0-11.0); MONO # 1.2 (0.1-0.6); MONO % 8.9 % (1.0-6.0); RBC 3.39 10^6/uL (3.5-6.1); RED CELL DISTRIBUTION WIDTH 13.4 % (11.5-14.5); WHITE BLOOD COUNT 13.3 10^3/ul (4.5-11.0)
[2018-02-19 17:26] LABS: VENOUS BLOOD GAS BASE EXCESS 6.4 mmol/L (0.0-2.0); VENOUS BLOOD GAS PO2 57 mm/Hg (30-55); VENOUS BLOOD PH 7.43 (7.32-7.43)
[2018-02-19 17:34] LABS: INR 1.03; PARTIAL THROMBOPLASTIN TIME 27.5 Seconds (25.1-36.5); PROTHROMBIN TIME 11.8 SECONDS (9.4-12.5)
--- NOTE | 2018-02-19 17:34 | RAD ---
HISTORY: Leg swelling COMPARISON: 07/19/2017 TECHNIQUE: Chest PA and lateral FINDINGS: LINES AND TUBES: None. LUNG AND PLEURA: The lungs are well inflated and clear. No pleural effusion or pneumothorax. HEART AND MEDIASTINUM: The heart is not enlarged. The hilar and mediastinal contours are within normal limits. SKELETAL STRUCTURES: The bony structures are within normal limits for the patient's age. VISUALIZED UPPER ABDOMEN: Normal. OTHER FINDINGS: None. IMPRESSION: No active pulmonary disease.
[2018-02-19 17:36] LABS: ALB/GLOB RATIO 1.2 (1.1-1.8); ALBUMIN 4.1 g/dL (3.0-4.8); BLOOD UREA NITROGEN 20 mg/dL (7-21); CALCIUM 8.9 mg/dL (8.4-10.5); GFR NON-AFRICAN AMERICAN 60
[2018-02-19 17:44] LABS: ALT/SGPT 22 U/L (7-56); AST/SGOT 28 U/L (17-59)
[2018-02-19 17:48] LABS: B-TYPE NATRIURETIC PEPTIDE 72.1 pg/mL (0-450); TROPONIN I < 0.01 ng/mL
[2018-02-19] MEDS: Vancomycin 1gm in NS 250ml 1 GM/250 ML BAG IVPB SCH (20:21)
[2018-02-19] MEDS: Mupirocin 2% Ointment 15 GM TUBE TOP SCH (20:22)
[2018-02-19 22:12] VITALS: BMI 25.7
--- NOTE | 2018-02-20 06:00 | HP ---
HISTORY OF PRESENT ILLNESS: The patient is a 72-year-old, known to me from multiple previous admissions and office records. The patient was seen in the office earlier. Complained of having increasing leg swelling, right more than the left. The patient seems to be very unkempt. He has profound psych history with paranoid schizophrenia, has been on multiple medications. It looks like the patient has not taken that for weeks. He was seen in the office and referred to emergency room for evaluation of his leg swelling. My suspicion is either this is because of Norvasc or he has DVT that need to be ruled out along with right leg cellulitis. PAST MEDICAL HISTORY: However, he has past medical history of; 1. Paranoid schizophrenia. 2. Hypertension. 3. Hyperlipidemia. 4. Recent multiple falls because of hyponatremia. He has nasal fracture too. ALLERGY: HE IS ALLERGIC TO CHLORPROMAZINE AND THORAZINE. MEDICATIONS AT HOME: He is on Abilify 1 mg at bedtime. He is on benztropine, Klonopin, Protonix, fluoxetine and simvastatin. SOCIAL HISTORY: [facility] and he was being followed by Dr. Carroll. He denies smoking, drinking or alcohol use. REVIEW OF SYSTEMS: Significant for bilateral leg swelling, very unkempt and with poor oral hygiene. PHYSICAL EXAMINATION: GENERAL: He is awake and alert, able to communicate. VITAL SIGNS: He is afebrile, pulse 76, respirations 18, blood pressure 145/86. LUNGS: Bilateral good airflow. HEART: S1 and S2 audible. ABDOMEN: Soft. Nontender. No rebound. No guarding. NEUROLOGICAL: He is awake, alert, oriented, able to communicate and ambulatory. EXTREMITIES: Bilateral leg +4 edema, right more than the left with patches of erythema. LABORATORY EXAM: WBC 13.3, hemoglobin 10.9, hematocrit 32.3, platelet 235. Chemistry: Sodium 140, potassium 3.7, chloride 103, CO2 of 27, BUN 20, creatinine 1.2, blood sugar of 108. LFTs are within normal limit. Troponin is 0.01. Leg Doppler is pending. X-ray chest: No pulmonary disease. ASSESSMENT: 1. Bilateral leg cellulitis. 2. Bilateral leg edema. 3. Hypertension. 4. Paranoid schizophrenia. PLAN: I will start him on IV diuretic, IV antibiotic and we will follow up bilateral leg Doppler. Monitor his LFTs. We will follow up this patient in the a.m. Preston Branch MD
[2018-02-20] MEDS: Pantoprazole 40 mg EC Tab PO SCH (06:27)
[2018-02-20 07:12] LABS: ALB/GLOB RATIO 1.3 (1.1-1.8); ALBUMIN 3.6 g/dL (3.0-4.8); ALT/SGPT 20 U/L (7-56); AST/SGOT 38 U/L (17-59); BLOOD UREA NITROGEN 18 mg/dL (7-21); CALCIUM 8.8 mg/dL (8.4-10.5); GFR NON-AFRICAN AMERICAN > 60
--- NOTE | 2018-02-20 08:24 | CP.PCM.CON ---
<Corin Plascencia - Last Filed: 02/20/18 13:40> History of Present Illness - History of Present Illness History of Present Illness: PGY-3 resident ID consult note for Dr May Reason for consult: cellulites of the legs Patient is a 72 y/o male with PMH of htn, hld, paranoid schizophrenia, anxiety disorder presenting with bilateral lower extremities edema for over a week. Patient states he has an anxiety disorder that includes picking on his legs, causing him to have multiple leg bruisings and sores. Pt was sent to the ed from PMD office due to worsening in pain. The extremities skin discoloration has been there at the same time as the edema. Denies fever or chills. Patient states the lower extremity pain has improved. No drainage from the ulcers. PMhx: htn, hld, schizophrenia, falls, h/o nasal bone fracture. PSHx: right lung lobectomy, tonsillectomy as a child FMHx: non contributory Social: former tobacco, denies alcohol and illicit drug use. Lives alone. Home meds: as per chart Review of Systems - Constitutional Constitutional: absent: Chills, Fever, Headache - EENT Eyes: absent: Blurred Vision Ears: absent: Disequilibrium, Dizziness Nose/Mouth/Throat: absent: Nasal Discharge - Cardiovascular Cardiovascular: Edema, Leg Edema. absent: Chest Pain, Chest Pain at Rest, Palp itations - Respiratory Respiratory: absent: Cough, Dyspnea, Wheezing, Snoring, Stridor - Gastrointestinal Gastrointestinal: absent: Abdominal Pain, Bloating, Nausea, Vomiting - Genitourinary Genitourinary: absent: Dysuria - Musculoskeletal Musculoskeletal: absent: Back Pain - Integumentary Integumentary: Skin Pain - Neurological Neurological: absent: Confusion, Dizziness, Weakness - Psychiatric Psychiatric: Anxiety - Endocrine Endocrine: absent: Fatigue, Palpitations - Hematologic/Lymphatic Hematologic: absent: Easy Bleeding, Easy Bruising, Lymphadenopathy Past Patient History - Infectious Disease Hx of Infectious Diseases: None - Tetanus Immunizations Tetanus Immunization: Unknown - Past Social History Smoking Status: Former Smoker Alcohol: None Drugs: Denies - CARDIAC Hx Cardiac Disorders: Yes Hx Hypercholesterolemia: Yes Hx Hypertension: Yes - PULMONARY Hx Respiratory Disorders: No - NEUROLOGICAL Hx Neurological Disorder: No - HEENT Hx HEENT Problems: No - RENAL Hx Chronic Kidney Disease: No - ENDOCRINE/METABOLIC Hx Endocrine Disorders: No - HEMATOLOGICAL/ONCOLOGICAL Hx Blood Disorders: Yes Hx Cancer: Yes (lung tumor) Hx Chemotherapy: No - INTEGUMENTARY Hx Dermatological Problems: Yes (multiple scabs to bilateral legs) - MUSCULOSKELETAL/RHEUMATOLOGICAL Hx Musculoskeletal Disorders: Yes Hx Falls: No Hx Fractures: Yes (left wrist) Hx Unsteady Gait: Yes (walker) - GASTROINTESTINAL Hx Gastrointestinal Disorders: No Hx Gastroesophageal Reflux: No - GENITOURINARY/GYNECOLOGICAL Hx Genitourinary Disorders: No - PSYCHIATRIC Hx Psychophysiologic Disorder: Yes Hx Anxiety: Yes Hx Depression: Yes Hx Substance Use: No - SURGICAL HISTORY Hx Surgeries: Yes (tonsillectomy, right lung lobectomy) - ANESTHESIA Hx Anesthesia: No Meds Allergies/Adverse Reactions: Allergies Allergy/AdvReac Type Severity Reaction Status Date / Time chlorpromazine Allergy REDNESS Verified 02/19/18 16:55 [From Thorazine] lamotrigine Allergy RASH Verified 02/19/18 16:55 THORAZINE Allergy Severe SHAKING Uncoded 02/19/18 16:55 - Medications Medications: Current Medications Aripiprazole (Abilify) 10 mg PO HS [facility]; Protocol Last Admin: 02/19/18 22:12 Dose: 10 mg Aspirin (Aspirin Chewable) 81 mg PO DAILY [facility] Atorvastatin Calcium (Lipitor) 10 mg PO DIN [facility] Benztropine Mesylate (Cogentin) 1 mg PO BID [facility] Last Admin: 02/19/18 20:22 Dose: 1 mg Clonazepam (Klonopin) 1 mg PO BID [facility]; Protocol Last Admin: 02/19/18 20:22 Dose: 1 mg Fluoxetine HCl (Prozac) 20 mg PO DAILY [facility] Furosemide (Lasix) 40 mg IVP DAILY [facility] Ceftriaxone Sodium (Rocephin 1 Gram Ivpb) 1 gm in 100 mls @ 100 mls/hr IVPB DAILY [facility]; Protocol Vancomycin HCl (Vancomycin 1gm) 1 gm in 250 mls @ 167 mls/hr IVPB Q12H [facility]; Protocol Last Admin: 02/19/18 20:21 Dose: 167 mls/hr Mupirocin (Bactroban Ointment) 0.5 gm TOP BID [facility] Last Admin: 02/19/18 20:22 Dose: 0.5 gm Pantoprazole Sodium (Protonix Ec Tab) 40 mg PO 0600 [facility] Last Admin: 02/20/18 06:27 Dose: 40 mg Physical Exam - Constitutional Appears: No Acute Distress, Unkempt - Head Exam Head Exam: ATRAUMATIC, NORMAL INSPECTION, NORMOCEPHALIC - Eye Exam Eye Exam: Normal appearance - ENT Exam ENT Exam: Mucous Membranes Moist - Neck Exam Neck exam: Positive for: Normal Inspection. Negative for: Lymphadenopathy - Respiratory Exam Respiratory Exam: Clear to Auscultation Bilateral, NORMAL BREATHING PATTERN. absent: Rales, Rhonchi, Wheezes, Respiratory Distress, Stridor - Cardiovascular Exam Cardiovascular Exam: REGULAR RHYTHM, RRR, +S1, +S2, Systolic Murmur - GI/Abdominal Exam GI & Abdominal Exam: Normal Bowel Sounds, Soft. absent: Distended, Firm, Guar ding, Rigid, Tenderness - Extremities Exam Extremities exam: Positive for: pedal edema (+2), pedal pulses present (faint likely due to edema.). Negative for: tenderness (sorness.) - Back Exam Back exam: NORMAL INSPECTION - Neurological Exam Neurological exam: Alert, Oriented x3 - Psychiatric Exam Psychiatric exam: Normal Affect, Normal Mood - Skin Skin Exam: Dry Additional comments: + old scars on the right upper abdominal region, and left knee. Bilateral lower extremities with multiple crusted ulcers/abrasions, non draining, erythema and chronic venous stasis in bilateral lower extremities R>L, mg inter-foot digits with black discolorations/poor foot hygiene. Results - Vital Signs Recent Vital Signs: Last Vital Signs Temp 98.4 F 02/19/18 21:55 Pulse 98 H 02/19/18 21:55 Resp 20 02/19/18 21:55 BP 133/86 02/19/18 21:55 Pulse Ox 97 02/19/18 19:48 - Labs Result Diagrams: 02/19/18 17:21 02/20/18 06:00 Labs: Laboratory Results - last 24 hr 02/19/18 02/19/18 02/19/18 17:21 17:21 17:21 WBC 13.3 H D RBC 3.39 L Hgb 10.9 L Hct 32.3 L MCV 95.3 MCH 32.2 MCHC 33.7 RDW 13.4 Plt Count 234 MPV 10.2 Gran % 67.9 Lymph % (Auto) 19.5 L Amador % (Auto) 8.9 H Eos % (Auto) 3.5 Baso % (Auto) 0.2 Gran # 9.06 H Lymph # (Auto) 2.6 Amador # (Auto) 1.2 H Eos # (Auto) 0.5 Baso # (Auto) 0.03 PT 11.8 INR 1.03 APTT 27.5 pO2 VBG pH VBG pCO2 VBG HCO3 VBG Total CO2 VBG O2 Sat (Calc) VBG Base Excess VBG Potassium Sodium 140 Chloride 103 Glucose Lactate FiO2 Potassium 3.7 Carbon Dioxide 27 Anion Gap 13 BUN 20 Creatinine 1.2 Est GFR ( Amer) > 60 Est GFR (Non-Af Amer) 60 Random Glucose 108 Calcium 8.9 Magnesium 2.0 Total Bilirubin 0.5 AST 28 ALT 22 Alkaline Phosphatase 104 Lactate Dehydrogenase 572 Total Creatine Kinase 70 Troponin I < 0.01 NT-Pro-B Natriuret Pep 72.1 Total Protein 7.4 Albumin 4.1 Globulin 3.3 Albumin/Globulin Ratio 1.2 Venous Blood Potassium 02/19/18 02/20/18 17:21 06:00 WBC RBC Hgb Hct MCV MCH MCHC RDW Plt Count MPV Gran % Lymph % (Auto) Amador % (Auto) Eos % (Auto) Baso % (Auto) Gran # Lymph # (Auto) Amador # (Auto) Eos # (Auto) Baso # (Auto) PT INR APTT pO2 57 H VBG pH 7.43 VBG pCO2 48.0 VBG HCO3 31.9 H VBG Total CO2 33.4 H VBG O2 Sat (Calc) 93.5 H VBG Base Excess 6.4 H VBG Potassium 3.7 Sodium 141.0 140 Chloride 107.0 102 Glucose 105 Lactate 1.1 FiO2 21.0 Potassium 4.0 Carbon Dioxide 31 Anion Gap 11 BUN 18 Creatinine 1.1 Est GFR ( Amer) > 60 Est GFR (Non-Af Amer) > 60 Random Glucose 93 Calcium 8.8 Magnesium Total Bilirubin 0.9 AST 38 ALT 20 Alkaline Phosphatase 102 Lactate Dehydrogenase Total Creatine Kinase Troponin I NT-Pro-B Natriuret Pep Total Protein 6.5 Albumin 3.6 Globulin 2.8 Albumin/Globulin Ratio 1.3 Venous Blood Potassium 3.7 Assessment & Plan - Assessment and Plan (Free Text) Assessment: A/P: 72 y/o with: Non purulent cellulites of the bilateral lower extremities right>left and abrasions versus chronic venous stasis Mg lower extremities edema r/o CHF interdigital toes fungus Systolic murmur h/o MSSA bacteremia h/o UTI ecoli h/o htn, hld, and anxiety Plan: On admission patient had leukocytosis with wbc of 13.3, afebrile. Blood cultures sent. Currently leukocytosis trended down, afebrile, and patient doesn't appear toxic. Will discontinue Rocephin for now, and continue with vancomycin. Lower extremity u/s pending. Will add clotrimazole cream for the interdigital toes fungus. Consider cardiac echo for murmur. Patient seen, examined and case discussed with Dr May. - Date & Time Date: 02/20/18 Time: 13:00 <Larry May - Last Filed: 02/20/18 21:30> Meds - Medications Medications: Current Medications Aripiprazole (Abilify) 10 mg PO HS [facility]; Protocol Last Admin: 02/20/18 21:12 Dose: 10 mg Aspirin (Aspirin Chewable) 81 mg PO DAILY [facility] Last Admin: 02/20/18 09:00 Dose: 81 mg Atorvastatin Calcium (Lipitor) 10 mg PO DIN [facility] Last Admin: 02/20/18 17:45 Dose: 10 mg Benztropine Mesylate (Cogentin) 1 mg PO BID [facility] Last Admin: 02/20/18 17:45 Dose: 1 mg Clonazepam (Klonopin) 1 mg PO BID [facility]; Protocol Last Admin: 02/20/18 17:45 Dose: 1 mg Clotrimazole (Lotrimin 1%) 1 gm TOP DAILY [facility] Fluoxetine HCl (Prozac) 20 mg PO DAILY [facility] Last Admin: 02/20/18 09:00 Dose: 20 mg Furosemide (Lasix) 40 mg IVP DAILY [facility] Last Admin: 02/20/18 09:00 Dose: 40 mg Vancomycin HCl (Vancomycin 1gm) 1 gm in 250 mls @ 167 mls/hr IVPB Q12H [facility]; Protocol Last Admin: 02/20/18 21:12 Dose: 167 mls/hr Mupirocin (Bactroban Ointment) 0.5 gm TOP BID [facility] Last Admin: 02/20/18 17:46 Dose: 0.5 gm Pantoprazole Sodium (Protonix Ec Tab) 40 mg PO 0600 [facility] Last Admin: 02/20/18 06:27 Dose: 40 mg Results - Vital Signs Recent Vital Signs: Last Vital Signs Temp 98.0 F 02/20/18 18:00 Pulse 80 02/20/18 18:00 Resp 20 02/20/18 18:00 BP 129/76 02/20/18 18:00 Pulse Ox 96 02/20/18 18:00 - Labs Result Diagrams: 02/19/18 17:21 02/20/18 06:00 Labs: Laboratory Results - last 24 hr 02/20/18 06:00 Sodium 140 Potassium 4.0 Chloride 102 Carbon Dioxide 31 Anion Gap 11 BUN 18 Creatinine 1.1 Est GFR ( Amer) > 60 Est GFR (Non-Af Amer) > 60 Random Glucose 93 Calcium 8.8 Total Bilirubin 0.9 AST 38 ALT 20 Alkaline Phosphatase 102 Total Protein 6.5 Albumin 3.6 Globulin 2.8 Albumin/Globulin Ratio 1.3 Assessment & Plan - Assessment and Plan (Free Text) Plan: Infectious Diseases Attending Physician Addendum Patient seen and examined, discussed with ophthalmic medical technologist. I have reviewed the pertinent clinical information for the patient, including history of present illness, medical, personal and social histories, lab results and imaging findings. I agree with the above findings, assessment and plan. In addition, paul mehta continue the patient on Vancomycin for right leg cellulitis. Follow up blood cx. Will start Clotrimazole cream for the webs of the toes.
[2018-02-20] MEDS: Vancomycin 1gm in NS 250ml 1 GM/250 ML BAG IVPB SCH ×2 (08:59→21:12)
--- NOTE | 2018-02-20 09:41 | CARD ---
APPROVED REPORT Date of service: 02/19/2018 EKG Measurement Heart [id number] <Conclusion> Normal sinus rhythm Normal ECG No change
[2018-02-20] MEDS ORDERED: cefTRIAXone 1 gm 1 GM/100 ML BAG IVPB SCH ×2 (10:00)
[2018-02-20] MEDS ORDERED: Non Formulary Medication (Simvastatin [Zocor] 1 TAB) PO SCH (10:00)
[2018-02-20] MEDS: Mupirocin 2% Ointment 15 GM TUBE TOP SCH ×2 (10:34→17:46)
--- NOTE | 2018-02-20 11:47 | US ---
HISTORY: Leg pain and swelling. Evaluate for DVT PHYSICIAN(S): Casimiro Tejeda MD. TECHNIQUE: Duplex sonography and color-flow Doppler with graded compression were used to evaluate the deep venous systems of both lower extremities. FINDINGS: The visualized deep venous systems of both lower extremities are sonographically normal and compressible. Normal wave forms and augmentation are seen. There is no sonographic evidence for deep venous thrombosis in the visualized segments of both lower extremities. IMPRESSION: No sonographic evidence for deep venous thrombosis in the visualized segments of both lower extremities.
--- NOTE | 2018-02-20 20:54 | PN ---
DATE: 02/20/2018 SUBJECTIVE: The patient is a 72 years old, seen and examined. Leg swelling looks much better. No complaints of nausea or vomiting. No diarrhea. Eating and tolerating. PHYSICAL EXAMINATION VITAL SIGNS: He is afebrile, pulse 80, respiration 20, blood pressure 115/68. LUNGS: Bilateral fair airflow. No rhonchi or crackle. HEART: S1, S2 audible. ABDOMEN: Soft, nontender. No rebound, no guarding. NEUROLOGIC: The patient is awake, alert, oriented, communicative, ambulatory. LABORATORY DATA: Sodium 140, potassium 4, chloride 102, CO2 of 31, BUN 18, creatinine 1.1. Blood sugar of 93. LFTs are within normal limit. ASSESSMENT: 1. Bilateral leg edema, right more than the left. 2. Hypertension. 3. Hyperlipidemia. 4. Bipolar disorder. 5. Paranoid schizophrenia. PLAN: We will continue the patient on his current medication. The patient is on vancomycin. Continue on Lasix. We will check his electrolyte intermittently. Preston Branch MD
[2018-02-21] MEDS: Vancomycin 1gm in NS 250ml 1 GM/250 ML BAG IVPB SCH ×2 (06:21→18:15)
[2018-02-21] MEDS: Pantoprazole 40 mg EC Tab PO SCH (06:21)
[2018-02-21] MEDS: Clotrimazole 1% Cream(30 gm) TOP SCH ×2 (09:27→17:56)
[2018-02-21] MEDS: Mupirocin 2% Ointment 15 GM TUBE TOP SCH ×2 (09:33→17:54)
--- NOTE | 2018-02-21 13:33 | PN ---
DATE: 02/21/2018 SUBJECTIVE: The patient is 72 years old, seen and examined, lying in bed, seems to be comfortable. No chest pain. No shortness of breath. No nausea or vomiting. No diarrhea. PHYSICAL EXAMINATION VITAL SIGNS: He is afebrile, pulse 74, respirations 20, and blood pressure 134/72. LUNGS: Bilateral fair airflow. No rhonchi or crackle. HEART: S1, S2 audible. ABDOMEN: Soft, nontender. No rebound, no guarding. NEUROLOGIC: The patient is awake and alert, is able to communicate. EXTREMITIES: Bilateral leg edema seems to be improving. Erythema has improved. He still have right leg swelling.. ASSESSMENT: 1. Right leg cellulitis and edema. 2. Hypertension. 3. Bipolar disorder. 4. Onychomycosis. 5. History of schizophrenia. PLAN: We will continue the patient on current antibiotics. Continue on diuretics. We will follow up electrolyte in the a.m. We will reevaluate in a.m. for disposition plan. Preston Branch MD
--- NOTE | 2018-02-21 13:56 | PN ---
DATE: 02/21/2018 SUBJECTIVE: The patient is seen early this morning in room 365, bed 2. No fevers. No chills. No nausea. No vomiting. PHYSICAL EXAMINATION: VITAL SIGNS: Temperature is 98, blood pressure is 120/70, respiratory rate of 16. HEENT: Examination of HEENT is unremarkable. NECK: Supple. LUNGS: Have decreased breath sounds. HEART: Normal S1 and S2. ABDOMEN: Soft, nontender. LABORATORY DATA: Laboratory examination reveals the patient's white count of 13,300. Coagulation is noted. Chemistries are noted, which are normal. Microbiology reveals the patient's blood cultures are no growth. Review of orders reveals the patient to be on vancomycin IV. ASSESSMENT AND PLAN: A 72-year-old male, who was seen earlier this morning in room 365, bed 2. He has a history of hyperlipidemia, hypertension, paranoid schizophrenia, anxiety, who was presented with bilateral lower extremity edema over a 1-week duration and presented with right leg cellulitis, on vancomycin. We will continue present course. The patient also had Dopplers of the lower extremity. Dr. Branch's note is reviewed. We will follow with you. Bud Rodriguez MD
--- NOTE | 2018-02-21 14:34 | CP.PCM.CON ---
History of Present Illness - History of Present Illness History of Present Illness: Podiatry consult note for attending Dr. Merritt; 71 y/o male patient with PMH of HTN, Hyperlipidemia, schizophrenia, anxiety and depression seen and evaluated for multiple small wounds and erythema on both LE. Patient is AAO X 3 and NAD. 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 Patient denies any pain in his legs. patient denies any other pedal complaint. Patient denies any recent F/N/V/C or SOB. Patient denies any similar problem in the past. PMhx: HTN, Hyperlipidemia, schizophrenia, anxiety and depression. PSHx: Right lung lobectomy and tonsillectomy. Allergies: Chlorpromazine, Lamotrigine, Thorazine. Social Hx: former smoker (1 PPD for 35 years, stopped at 2004), denies alcohol and illicit drug use. Review of Systems - Review of Systems Review of Systems: As per HPI Past Patient History - Infectious Disease Hx of Infectious Diseases: None - Tetanus Immunizations Tetanus Immunization: Unknown - Past Social History Smoking Status: Former Smoker Alcohol: None Drugs: Denies - CARDIAC Hx Hypercholesterolemia: Yes (HLD) Hx Hypertension: Yes - PULMONARY Hx Respiratory Disorders: No - NEUROLOGICAL Hx Neurological Disorder: No - HEENT Hx HEENT Problems: No - RENAL Hx Chronic Kidney Disease: No - ENDOCRINE/METABOLIC Hx Endocrine Disorders: No - HEMATOLOGICAL/ONCOLOGICAL Hx Blood Disorders: Yes Hx Cancer: Yes (lung tumor) Hx Chemotherapy: No - INTEGUMENTARY Hx Dermatological Problems: Yes (multiple scabs to bilateral legs) - MUSCULOSKELETAL/RHEUMATOLOGICAL Hx Musculoskeletal Disorders: Yes Hx Falls: No Hx Fractures: Yes (left wrist) Hx Unsteady Gait: Yes (walker) - GASTROINTESTINAL Hx Gastrointestinal Disorders: No Hx Gastroesophageal Reflux: No - GENITOURINARY/GYNECOLOGICAL Hx Genitourinary Disorders: No - PSYCHIATRIC Hx Psychophysiologic Disorder: Yes Hx Anxiety: Yes Hx Depression: Yes Hx Substance Use: No - SURGICAL HISTORY Hx Surgeries: Yes (tonsillectomy, right lung lobectomy) - ANESTHESIA Hx Anesthesia: No Meds Allergies/Adverse Reactions: Allergies Allergy/AdvReac Type Severity Reaction Status Date / Time chlorpromazine Allergy REDNESS Verified 02/19/18 16:55 [From Thorazine] lamotrigine Allergy RASH Verified 02/19/18 16:55 THORAZINE Allergy Severe SHAKING Uncoded 02/19/18 16:55 - Medications Medications: Current Medications Aripiprazole (Abilify) 10 mg PO HS [facility]; Protocol Last Admin: 02/20/18 21:12 Dose: 10 mg Aspirin (Aspirin Chewable) 81 mg PO DAILY [facility] Last Admin: 02/21/18 09:25 Dose: 81 mg Atorvastatin Calcium (Lipitor) 10 mg PO DIN [facility] Last Admin: 02/20/18 17:45 Dose: 10 mg Benztropine Mesylate (Cogentin) 1 mg PO BID [facility] Last Admin: 02/21/18 09:26 Dose: 1 mg Clonazepam (Klonopin) 1 mg PO BID [facility]; Protocol Last Admin: 02/21/18 09:26 Dose: 1 mg Clotrimazole (Lotrimin 1%) 1 gm TOP DAILY [facility] Last Admin: 02/21/18 09:27 Dose: 1 applic Fluoxetine HCl (Prozac) 20 mg PO DAILY [facility] Last Admin: 02/21/18 09:28 Dose: 20 mg Furosemide (Lasix) 40 mg IVP DAILY [facility] Last Admin: 02/21/18 09:26 Dose: 40 mg Vancomycin HCl (Vancomycin 1gm) 1 gm in 250 mls @ 167 mls/hr IVPB Q12H [facility]; Protocol Last Admin: 02/21/18 06:21 Dose: 167 mls/hr Mupirocin (Bactroban Ointment) 0.5 gm TOP BID [facility] Last Admin: 02/21/18 09:33 Dose: 0.5 gm Pantoprazole Sodium (Protonix Ec Tab) 40 mg PO 0600 [facility] Last Admin: 02/21/18 06:21 Dose: 40 mg Physical Exam - Constitutional Appears: Well, Non-toxic, No Acute Distress - Head Exam Head Exam: ATRAUMATIC, NORMOCEPHALIC - Extremities Exam Additional comments: B/L LE focused exam: Vasc: DP/PT 2/4 B/L. Cap refill < 3 sec in all digits. temp gradient warm to cool from proximal to distal B/l. No edema noted b/l. mild erythema noted on both legs right > left. Neuro: Gross and protective sensations are intact b/l. Derm:No clinical signs of active infection. Scattered, hard scab covered small wounds scattered on both legs right > left. color changes of the skin (mild erythema) noted on the right side. B/L medial heel is darker than the surrounding skin.. Annular scaly lesions present on both legs right > left. MSK: No Pain on palpating both legs. Muscle power intact 5/5 in all groups B/L. No pain on squeezing both calves. - Neurological Exam Neurological exam: Alert, Oriented x3 - Psychiatric Exam Psychiatric exam: Normal Affect, Normal Mood Results - Vital Signs Recent Vital Signs: Last Vital Signs Temp 98.0 F 02/21/18 06:00 Pulse 74 02/21/18 06:00 Resp 20 02/21/18 06:00 BP 134/72 02/21/18 09:26 Pulse Ox 97 02/21/18 06:00 - Labs Result Diagrams: 02/19/18 17:21 02/20/18 06:00 Assessment & Plan - Assessment and Plan (Free Text) Assessment: 72 y/o M patient seen and evaluated at the bedside for B/L leg Facticaous lesions and fungal infection. Plan: Patient seen and evaluated at the bedside with dr. Merritt. Plan discussed in details with attending Dr. Merritt. Chart, labs and vitals reviewed; Afebrile, WBCs 13.3. Patient instructed to stop picking up his legs. Patient expressed verbal understanding. Patient legs dressed using dimethicone lotion, bactroban, 4X4 gauze and kerlix ordered Lotrimin cream to be added to the dressing starting from tomorrow. podiatry will follow up the patient while in house. - Date & Time Date: 02/21/18 Time: 14:34
[2018-02-22] MEDS: Pantoprazole 40 mg EC Tab PO SCH (06:11)
[2018-02-22] MEDS: Vancomycin 1gm in NS 250ml 1 GM/250 ML BAG IVPB SCH (06:17)
[2018-02-22 06:29] LABS: HEMOGLOBIN 11.4 g/dL (14.0-18.0); MEAN CELL VOLUME 95.8 fl (80.0-105.0); MEAN CORPUSCULAR HEMOGLOBIN 31.6 pg (25.0-35.0); MEAN CORPUSCULAR HGB CONC 32.9 g/dl (31.0-37.0); MEAN PLATELET VOLUME 10.2 fl (7.0-11.0); RBC 3.61 10^6/uL (3.5-6.1); RED CELL DISTRIBUTION WIDTH 13.3 % (11.5-14.5); WHITE BLOOD COUNT 10.7 10^3/ul (4.5-11.0)
[2018-02-22 06:48] LABS: ALB/GLOB RATIO 1.2 (1.1-1.8); ALT/SGPT 25 U/L (7-56); AST/SGOT 40 U/L (17-59); BLOOD UREA NITROGEN 23 mg/dL (7-21); CALCIUM 8.7 mg/dL (8.4-10.5); GFR NON-AFRICAN AMERICAN 55
[2018-02-22 09:24] VITALS: PULSE 72; RESP 20; TEMP 97.6; O2SAT 95
[2018-02-22] MEDS: Mupirocin 2% Ointment 15 GM TUBE TOP SCH (09:50)
[2018-02-22] MEDS: Clotrimazole 1% Cream(30 gm) TOP SCH ×2 (09:51)
[2018-02-22 09:52] VITALS: BP 116/70
--- NOTE | 2018-02-22 14:14 | CP.PCM.PN ---
Subjective - Date & Time of Evaluation Date of Evaluation: 02/22/18 Time of Evaluation: 14:09 - Subjective Subjective: Podiatry progress note for attending Dr. Merritt; 71 y/o male patient seen and evaluated for multiple small wounds and erythema on both LE. Patient is AAO X 3 and NAD. Patient states that he he didn't pick any of his legs since yesterday as it was dressed up. Patient denies any overnight pain in his legs. patient denies any other pedal complaint currently. Patient denies any overnight F/N/V/C or SOB. Objective - Vital Signs/Intake and Output Vital Signs (last 24 hours): Temp Pulse Resp BP Pulse Ox 97.6 F 72 20 116/70 95 02/22/18 06:00 02/22/18 06:00 02/22/18 06:00 02/22/18 09:50 02/22/18 06:00 - Medications Medications: Current Medications Aripiprazole (Abilify) 10 mg PO HS [facility]; Protocol Last Admin: 02/21/18 21:42 Dose: 10 mg Aspirin (Aspirin Chewable) 81 mg PO DAILY [facility] Last Admin: 02/22/18 09:49 Dose: 81 mg Atorvastatin Calcium (Lipitor) 10 mg PO DIN [facility] Last Admin: 02/21/18 17:55 Dose: 10 mg Benztropine Mesylate (Cogentin) 1 mg PO BID [facility] Last Admin: 02/22/18 09:49 Dose: 1 mg Clonazepam (Klonopin) 1 mg PO BID [facility]; Protocol Last Admin: 02/22/18 09:49 Dose: 1 mg Clotrimazole (Lotrimin 1%) 1 gm TOP DAILY [facility] Last Admin: 02/22/18 09:51 Dose: 1 applic Clotrimazole (Lotrimin 1%) 1 gm TOP BID [facility] Last Admin: 02/22/18 09:51 Dose: Not Given Fluoxetine HCl (Prozac) 20 mg PO DAILY [facility] Last Admin: 02/22/18 09:49 Dose: 20 mg Furosemide (Lasix) 40 mg IVP DAILY [facility] Last Admin: 02/22/18 09:50 Dose: 40 mg Vancomycin HCl (Vancomycin 1gm) 1 gm in 250 mls @ 167 mls/hr IVPB Q12H [facility]; Protocol Last Admin: 02/22/18 06:17 Dose: 167 mls/hr Mupirocin (Bactroban Ointment) 0.5 gm TOP BID [facility] Last Admin: 02/22/18 09:50 Dose: 1 appful Pantoprazole Sodium (Protonix Ec Tab) 40 mg PO 0600 [facility] Last Admin: 02/22/18 06:11 Dose: 40 mg - Labs Labs: 02/22/18 05:30 02/22/18 05:30 PT 11.8 SECONDS (9.4-12.5) 02/19/18 17:21 INR 1.03 02/19/18 17:21 APTT 27.5 Seconds (25.1-36.5) 02/19/18 17:21 - Constitutional Appears: Well, Non-toxic, No Acute Distress - Head Exam Head Exam: ATRAUMATIC, NORMOCEPHALIC - Extremities Exam Additional comments: B/L LE focused exam: Vasc: DP/PT 2/4 B/L. Cap refill < 3 sec in all digits. temp gradient warm to cool from proximal to distal B/l. No edema noted b/l. mild erythema noted on both legs right > left. Neuro: Gross and protective sensations are intact b/l. Derm:No clinical signs of active infection. Scattered small wounds on both legs right > left, some of them covered by hard scab and others opened. color changes of the skin (mild erythema) noted on the right side. B/L medial side of the heel is darker than the surrounding skin b/l. Annular scaly lesions present on both legs right > left. MSK: No Pain on palpating both legs. Muscle power intact 5/5 in all groups B/L. No pain on squeezing both calves. - Neurological Exam Neurological Exam: Alert, Awake, Oriented x3 - Psychiatric Exam Psychiatric exam: Normal Affect, Normal Mood Assessment and Plan - Assessment and Plan (Free Text) Assessment: 72 y/o M patient seen and evaluated at the bedside for B/L leg Facticaous lesions and fungal infection. Plan: Patient seen and evaluated at the bedside with dr. Merritt. Plan discussed in details with attending Dr. Merritt. Chart, labs and vitals reviewed; Afebrile, WBCs 10.7. Patient instructed to stop picking his legs. Patient expressed verbal understanding. Patient legs dressed using Lotrimin cream, bactroban, 4X4 gauze and kerlix podiatry will continue to follow up the patient while in house.
--- NOTE | 2018-02-22 14:19 | DS ---
HISTORY OF PRESENT ILLNESS: The patient is 72 years old, seen and examined, lying in bed, seems to be comfortable. No nausea, vomiting. No diarrhea. Leg swelling has significantly improved. PHYSICAL EXAMINATION: VITAL SIGNS: The patient is afebrile, pulse 72, respiration 20, blood pressure 116/70. LUNGS: Bilateral good airflow. No rhonchi or crackle. HEART: S1, S2 audible. ABDOMEN: Soft, nontender. No rebound, no guarding. EXTREMITIES: Bilateral legs, the swelling has significantly improved. NEUROLOGICAL: The patient is awake, alert, oriented, communicative. LABORATORY EXAM: WBC is 10.7, hemoglobin 11.4, hematocrit 34.6, platelet 222. Chemistry: Sodium 141, potassium 3.6, chloride 101, CO2 32, BUN 23, creatinine 1.3, blood sugar of 55. Blood cultures are negative. ASSESSMENT: 1. Bilateral leg edema. 2. Right leg cellulitis, probably secondary to Norvasc. 3. Hypertension. 4. Hyperlipidemia. 5. Bipolar disorder. 6. Paranoid schizophrenia. PLAN: The patient will be discharged home on his usual medications. We will continue his Lipitor. His blood pressure seems to be running decent. I will start him on irbesartan with hydrochlorothiazide, then we will discontinue his Norvasc. The patient will be discharged home on p.o. Augmentin 500 three times a day for a week and he will follow up in the office. Preston Branch MD
--- NOTE | 2018-02-22 16:26 | US ---
PROCEDURE: Lower extremity GIANCARLO exam HISTORY: Peripheral vascular disease with pain and ulceration. Previous smoker PHYSICIAN(S): Casimiro Tejeda MD. FINDINGS: The resting GIANCARLO's are mildly abnormal: Right, 0.82 and left, 0.73 The brachial systolic pressures are symmetric. The high thigh pressures and waveforms are relatively normal. The calf PVR waveforms augment normally. No significant gradients are noted across the thighs. There is a 38 mm gradient across the right knee and a 40 mm gradient across the left knee. The ankle and metatarsal waveforms are pulsatile and mildly blunted. The findings are consistent with bilateral popliteal, trifurcation, and/or tibial disease. IMPRESSION: 1. Mildly abnormal ABIs at rest. 2. Bilateral popliteal, trifurcation, and/or tibial disease
--- NOTE | 2018-02-22 23:34 | PN ---
DATE: 02/22/2018 SUBJECTIVE: The patient is seen earlier this morning in room 365, bed 2. No fevers. No chills. No nausea or vomiting. PHYSICAL EXAMINATION: VITAL SIGNS: Temperature is 98, blood pressure is 160/70, respiratory rate of 18. HEENT: Unremarkable. NECK: Supple. LUNGS: Have decreased breath sounds. HEART: Normal S1 and S2. ABDOMEN: Noted. EXTREMITIES: Examination of legs had completely resolved. LABORATORY EXAMINATION: Reveals the white count is down to 10,000. Chemistries are noted. ASSESSMENT AND PLAN: A 72-year-old male, who was seen earlier this morning with the podiatric team with hyperlipidemia, hypertension, paranoid schizophrenia, anxiety, who was presented with bilateral lower extremity edema, currently completed therapy. No further antibiotics necessary. Legs had resolved. Bud Rodriguez MD
== END 2018-02-22 16:28 | disposition home or self-care (01) | DRG 603 ==
LOC: ED 15:51 → ERH 18:23 → 3RNO 21:20
PROVIDERS: ADMIT Internal Medicine; ATTEND Internal Medicine
DX: L03.115 Cellulitis of right lower limb (principal); F20.0 Paranoid schizophrenia; L03.116 Cellulitis of left lower limb; T46.1X5A Adverse effect of calcium-channel blockers, initial encounter; I10 Essential (primary) hypertension; G20 Parkinson's disease; R13.12 Dysphagia, oropharyngeal phase; B35.3 Tinea pedis; E78.5 Hyperlipidemia, unspecified; R29.6 Repeated falls; I87.2 Venous insufficiency (chronic) (peripheral); K21.9 Gastro-esophageal reflux disease without esophagitis; F41.9 Anxiety disorder, unspecified; Z85.118 Personal history of other malignant neoplasm of bronchus and lung; Z87.891 Personal history of nicotine dependence

== ENCOUNTER 2018-06-06 13:36 | Inpatient (IN) | payer MEDICARE, BC ==
--- NOTE | 2018-06-06 14:24 | ED PDOC ---
Arrival/HPI - General Chief Complaint: Lower Extremity Problem/Injury Time Seen by Provider: 06/06/18 14:11 Historian: Patient - History of Present Illness Narrative History of Present Illness (Text): 06/06/18 14:25 A 73 year old male, whose past medical history includes hypertension and hyperlipidemia, presents to the emergency department complaining of bilateral leg swelling. Patient reports right leg is worse than left. States he went to see his PMD, who sent him here to the ER to be evaluated. Lower legs with hardening and redness as well. Patient denies any chest pain, or any other complaints at this time. PMD: Dr. Branch Past Medical History - Provider Review Nursing Documentation Reviewed: Yes - Infectious Disease Hx of Infectious Diseases: None - Tetanus Immunization Tetanus Immunization: Unknown - Cardiac Hx Hypertension: Yes - Pulmonary Hx Respiratory Disorders: No - Neurological Hx Neurological Disorder: No - HEENT Hx HEENT Disorder: No - Renal Hx Renal Disorder: No - Endocrine/Metabolic Hx Endocrine Disorders: No - Hematological/Oncological Hx Blood Disorders: Yes Hx Cancer: Yes (lung tumor) Hx Chemotherapy: No - Integumentary Hx Dermatological Disorder: Yes (multiple scabs to bilateral legs) - Musculoskeletal/Rheumatological Hx Musculoskeletal Disorders: Yes Hx Falls: No Hx Fractures: Yes (left wrist) Hx Unsteady Gait: Yes (walker) - Gastrointestinal Hx Gastrointestinal Disorders: No Hx Gastroesophageal Reflux: No - Genitourinary/Gynecological Hx Genitourinary Disorders: No - Psychiatric Hx Psychophysiologic Disorder: Yes Hx Anxiety: Yes Hx Depression: Yes Hx Substance Use: No - Surgical History Other/Comment: maxillary Fx right side - Anesthesia Hx Anesthesia: No Hx Anesthesia Reactions: No Hx Malignant Hyperthermia: No - Suicidal Assessment Feels Threatened In Home Enviroment: No Family/Social History - Physician Review Nursing Documentation Reviewed: Yes Family/Social History: No Known Family HX Smoking Status: Former Smoker Hx Alcohol Use: No Hx Substance Use: No Hx Substance Use Treatment: No Allergies/Home Meds Allergies/Adverse Reactions: Allergies chlorpromazine [From Thorazine] Allergy (Verified 02/19/18 16:55) REDNESS shaking lamotrigine Allergy (Verified 02/19/18 16:55) RASH THORAZINE Allergy (Severe, Uncoded 02/19/18 16:55) SHAKING Home Medications: Home Meds Medication Instructions Recorded Confirmed ARIPiprazole [Abilify] 1 tab PO HS 05/18/17 07/19/17 Benztropine [Cogentin] 1 tab PO BID 05/18/17 07/19/17 Bupropion HCl [Bupropion Xl] 300 mg PO DAILY 05/18/17 07/19/17 FLUoxetine [Prozac] 1 tab PO DAILY 05/18/17 07/19/17 Simvastatin [Zocor] 1 tab PO DAILY 05/18/17 07/19/17 clonazePAM [Klonopin] 1 tab PO BID 05/18/17 07/19/17 Review of Systems - Physician Review All systems were reviewed & negative as marked: Yes - Review of Systems Constitutional: absent: Fevers Cardiovascular: absent: Chest Pain Physical Exam - Physical Exam Narrative Physical Exam (Text): Constitutional: No acute distress. Head: Normocephalic. Atraumatic. Eyes: PERRL. ENT: Moist mucous membranes. Neck: Supple. Cardiovascular: Regular rate. Chest: No tenderness. Respiratory: Clear to auscultation bilaterally. GI: Soft. Nontender. Nondistended. Back: No CVA tenderness. Musculoskeletal: Bilateral edema to lower extremities (right>left). Skin: Erythema and induration to bilateral lower legs Neurologic: Alert, no focal deficit. Medical Decision Making ED Course and Treatment: 06/06/18 14:26 Impression: 73 year old male with bilateral leg swelling, right>left. Plan: -- Lower Extremity Ultrasound -- Reassess and disposition Prior Visits: Notes and results from previous visits were reviewed. Patient was last seen in the emergency department on 02/19/2018 for evaluation of bilateral leg swelling. Patient was admitted. Progress Notes: 06/06/18 16:00 EKG NSR 95 bpm, no ST/T wave changes. 06/06/2018 16:01 Extremity Ultrasound IMPRESSION: No sonographic evidence for deep venous thrombosis in the visualized segments of both lower extremities. Dictator: Casimiro Branch recommends admission to her service, patient with worsening condition, will require IV antibiotics. - RAD Interpretation Radiology Orders: 06/06/18 14:20 DUPLEX LOWER EXTRM VEIN BILAT [US] Stat - Scribe Statement The provider has reviewed the documentation as recorded by the Oliver Johnson Provider Scribe Attestation: All medical record entries made by the Scribe were at my direction and personally dictated by me. I have reviewed the chart and agree that the record accurately reflects my personal performance of the history, physical exam, medical decision making, and the department course for this patient. I have also personally directed, reviewed, and agree with the discharge instructions and disposition. Disposition/Present on Arrival - Present on Arrival Any Indicators Present on Arrival: No History of DVT/PE: No History of Uncontrolled Diabetes: No Urinary Catheter: No History of Decub. Ulcer: No History Surgical Site Infection Following: None - Disposition Have Diagnosis and Disposition been Completed?: Yes Diagnosis: Cellulitis Disposition: HOSPITALIZED Disposition Time: 16:01 Patient Plan: Admission Condition: GUARDED
[2018-06-06] MEDS ORDERED: Vancomycin 1gm in NS 250ml 1 GM/250 ML BAG IVPB STA (15:52)
--- NOTE | 2018-06-06 16:24 | RAD ---
Date of service: 06/06/2018 HISTORY: cellulitis COMPARISON: No prior. FINDINGS: LUNGS: No active pulmonary disease. PLEURA: No significant pleural effusion identified, no pneumothorax apparent. CARDIOVASCULAR: No atherosclerotic calcification present Normal. OSSEOUS STRUCTURES: No significant abnormalities. VISUALIZED UPPER ABDOMEN: Normal. OTHER FINDINGS: None. IMPRESSION: No active disease.
[2018-06-06 17:17] LABS: BASO # 0.04 K/mm3 (0.0-2.0); BASO % 0.4 % (0.0-3.0); EOS # 0.3 (0.0-0.7); EOS % 2.4 % (1.5-5.0); GRAN # 6.43 (1.4-6.5); GRAN % 60.7 % (50.0-68.0); HEMOGLOBIN 11.4 g/dL (14.0-18.0); LYMPH # 3.1 (1.2-3.4); LYMPH % 28.9 % (22.0-35.0); MEAN CELL VOLUME 97.2 fl (80.0-105.0); MEAN CORPUSCULAR HEMOGLOBIN 31.6 pg (25.0-35.0); MEAN CORPUSCULAR HGB CONC 32.5 g/dl (31.0-37.0); MEAN PLATELET VOLUME 10.7 fl (7.0-11.0); MONO # 0.8 (0.1-0.6); MONO % 7.6 % (1.0-6.0); RBC 3.61 10^6/uL (3.5-6.1); RED CELL DISTRIBUTION WIDTH 13.2 % (11.5-14.5); WHITE BLOOD COUNT 10.6 10^3/uL (4.5-11.0)
[2018-06-06 17:22] LABS: ALB/GLOB RATIO 1.4 (1.1-1.8); ALBUMIN 4.1 g/dL (3.0-4.8); ALT/SGPT 28 U/L (7-56); AST/SGOT 23 U/L (17-59); BLOOD UREA NITROGEN 23 mg/dL (7-21); CALCIUM 9.2 mg/dL (8.4-10.5); GFR NON-AFRICAN AMERICAN > 60
[2018-06-06 17:26] LABS: INR 0.96; PARTIAL THROMBOPLASTIN TIME 28.5 Seconds (25.1-36.5); PROTHROMBIN TIME 10.9 SECONDS (9.4-12.5)
--- NOTE | 2018-06-06 18:33 | CARD ---
APPROVED REPORT Date of service: 06/06/2018 EKG Measurement Heart [id number] <Conclusion> Normal sinus rhythm Normal ECG
[2018-06-06 18:58] LABS: PH,URINE 7.5 (4.7-8.0); URINE BILIRUBIN NEGATIVE (NEGATIVE); URINE BLOOD NEGATIVE (NEGATIVE); URINE GLUCOSE (UA) NEGATIVE (NEGATIVE); URINE LEUKOCYTE ESTERASE NEGATIVE Leu/uL (NEGATIVE); URINE PROTEIN NEGATIVE mg/dL (<30 mg/dL); URINE UROBILINOGEN 0.2 E.U./dL (<1 E.U./dL)
[2018-06-06 19:16] LABS: URINE APPEARANCE CLEAR (CLEAR); URINE COLOR YELLOW (YELLOW)
[2018-06-06 22:53] VITALS: BMI 26.4
[2018-06-06] MEDS ORDERED: Influenza Vaccine 60 mcg/0.5 mL SYR (4YR UP) IM ONE (22:53)
[2018-06-06] MEDS ORDERED: Pneumococcal 23-Valent Vaccine IM ONE (22:53)
--- NOTE | 2018-06-07 08:51 | HP ---
DATE OF EXAM: 06/06/2018 HISTORY OF PRESENT ILLNESS: The patient is 73 years old, he came to the office this morning because of increasing right leg swelling. The patient stated he has been feeling numbness, tingling and it hurts to walk. The patient had supportive stocking placed couple of weeks ago by Dr. Merritt and he never removed them and now he feels uncomfortable. Denies any fever or chills. No history of nausea or vomiting. The patient is very unkempt, unhygienic, had foul smell. It does not look like he lives in reasonable environment. Because of above mentioned reasons, he was sent to emergency room to rule out DVT, because he also has bilateral leg redness. PAST MEDICAL HISTORY: Significant for; 1. Paranoid schizophrenia. 2. Anxiety disorder. 3. Hypertension. 4. Hyperlipidemia. 5. History of fall last year and had nasal fracture. 6. History of lung tumor, had resection done. ALLERGIES: HE IS ALLERGIC TO CHLORPROMAZINE AND LAMOTRIGINE. MEDICATIONS AT HOME: He is on Klonopin 1 mg twice a day, simvastatin 40 mg daily, Protonix 40 mg daily. He is on Prozac 20 mg daily, Cogentin 1 mg twice a day, and aspirin 81 mg daily. SOCIAL HISTORY: He lives by himself. Used to be a heavy smoker. REVIEW OF SYSTEMS: The patient's outlook is very poor. He has poor oral hygiene, poor general hygiene, has bilateral leg swelling also. PHYSICAL EXAMINATION: GENERAL: He is awake and alert, able to communicate. VITAL SIGNS: He is afebrile, pulse 83, respirations 19, and blood pressure 148/54. LUNGS: Bilateral fair airflow. No rhonchi or crackle. HEART: S1 and S2 audible. ABDOMEN: Soft and nontender. No rebound. No guarding. NEUROLOGIC: He is awake and alert, seems anxious. EXTREMITIES: Bilateral leg, +2 edema. LABORATORY DATA: WBC is 10.6, hemoglobin 11.4, hematocrit 35.1, and platelets 239. PT is 10.9, INR is 0.96. Chemistry; sodium 140, potassium 4.3, chloride 107, CO2 of 27, BUN 23, creatinine 1.1, blood sugar of 106. LFTs are within normal limits. Bilateral leg Doppler negative for DVT. ASSESSMENT: 1. Bilateral leg cellulitis, bilateral leg edema. 2. Paranoid schizophrenia. 3. Hypertension. 4. Hyperlipidemia. PLAN: The patient will be admitted. We will start him on IV antibiotics and start him on IV Lasix. We will resume his psych medications. I will request Dr. Thompson to evaluate the patient and we will follow up this patient in a.m. Preston Branch MD
--- NOTE | 2018-06-07 09:39 | CP.PCM.CON ---
History of Present Illness - History of Present Illness History of Present Illness: Podiatry consult note for attending Dr. Merritt; 71 y/o male patient with PMH of HTN, Hyperlipidemia, schizophrenia, anxiety and depression seen and evaluated for multiple small wounds and erythema on both LE. Patient is AAO X 3 and NAD.Patients admits to picking scabs off of his legs when anxious. Patient denies any pain in his legs. patient denies any other pedal complaint. Patient denies any recent F/N/V/C or SOB. Patient denies any similar problem in the past. PMhx: HTN, Hyperlipidemia, schizophrenia, anxiety and depression. PSHx: Right lung lobectomy and tonsillectomy. Allergies: Chlorpromazine, Lamotrigine, Thorazine. Social Hx: former smoker (1 PPD for 35 years, stopped at 2004), denies alcohol and illicit drug use. Past Patient History - Infectious Disease Hx of Infectious Diseases: None - Tetanus Immunizations Tetanus Immunization: Unknown - Past Social History Smoking Status: Former Smoker - CARDIAC Hx Cardiac Disorders: Yes Hx Hypertension: Yes - PULMONARY Hx Respiratory Disorders: Yes (LUNG CA WITH RIGHT LUNG LOBECTOMY) - NEUROLOGICAL Hx Neurological Disorder: No - HEENT Hx HEENT Problems: No - RENAL Hx Chronic Kidney Disease: No - ENDOCRINE/METABOLIC Hx Endocrine Disorders: No - HEMATOLOGICAL/ONCOLOGICAL Hx Blood Disorders: Yes Hx Cancer: Yes (lung tumor) Hx Chemotherapy: No - INTEGUMENTARY Hx Dermatological Problems: Yes (multiple scabs to bilateral legs,BILATERAL LEG CELLULITIS GOES TO DR HURT) - MUSCULOSKELETAL/RHEUMATOLOGICAL Hx Musculoskeletal Disorders: Yes Hx Falls: No Hx Fractures: Yes (left wrist) Hx Unsteady Gait: Yes (walker) - GASTROINTESTINAL Hx Gastrointestinal Disorders: No Hx Gastroesophageal Reflux: No - GENITOURINARY/GYNECOLOGICAL Hx Genitourinary Disorders: No - PSYCHIATRIC Hx Psychophysiologic Disorder: Yes Hx Anxiety: Yes Hx Depression: Yes Hx Substance Use: No - SURGICAL HISTORY Hx Surgeries: Yes (RIGHT LUNG LOBECTOMY) Other/Comment: maxillary Fx right side - ANESTHESIA Hx Anesthesia: No Hx Anesthesia Reactions: No Hx Malignant Hyperthermia: No Meds Allergies/Adverse Reactions: Allergies Allergy/AdvReac Type Severity Reaction Status Date / Time chlorpromazine Allergy REDNESS Verified 02/19/18 16:55 [From Thorazine] lamotrigine Allergy RASH Verified 02/19/18 16:55 THORAZINE Allergy Severe SHAKING Uncoded 02/19/18 16:55 - Medications Medications: Current Medications Aripiprazole (Abilify) 10 mg PO HS [facility]; Protocol Last Admin: 06/06/18 22:39 Dose: 10 mg Aspirin (Aspirin Chewable) 81 mg PO DAILY [facility] Atorvastatin Calcium (Lipitor) 10 mg PO DIN [facility] Benztropine Mesylate (Cogentin) 1 mg PO BID [facility] Last Admin: 06/06/18 20:28 Dose: 1 mg Bupropion HCl (Wellbutrin Xl) 300 mg PO DAILY [facility] Clonazepam (Klonopin) 1 mg PO BID [facility]; Protocol Last Admin: 06/06/18 20:28 Dose: 1 mg Fluoxetine HCl (Prozac) 20 mg PO DAILY [facility] Furosemide (Lasix) 40 mg IVP DAILY [facility] Ceftriaxone Sodium (Rocephin 1 Gram Ivpb) 1 gm in 100 mls @ 100 mls/hr IVPB DAILY [facility]; Protocol Losartan Potassium (Cozaar) 100 mg PO DAILY [facility] Pantoprazole Sodium (Protonix Ec Tab) 40 mg PO 0600 [facility] Physical Exam - Constitutional Appears: Well, Non-toxic, No Acute Distress - Head Exam Head Exam: ATRAUMATIC, NORMOCEPHALIC - Eye Exam Eye Exam: Normal appearance Pupil Exam: NORMAL ACCOMODATION - ENT Exam ENT Exam: Mucous Membranes Moist - Extremities Exam Additional comments: B/L LE focused exam: Vasc: DP/PT 2/4 B/L. Cap refill < 3 sec in all digits. temp gradient warm to cool from proximal to distal B/l. Minimal edema noted b/l in dorsum of foot, and leg. Mild erythema noted on both legs Neuro: Gross and protective sensations are intact b/l. Derm:No clinical signs of active infection. Scattered, hard scab covered small wounds scattered on both legs right > left. color changes of the skin (mild erythema) noted on the right side. B/L medial heel is darker than the surrounding skin.. Annular scaly lesions present on both legs right > left. MSK: No Pain on palpating both legs. Muscle power intact 5/5 in all groups B/L. Results - Vital Signs Recent Vital Signs: Last Vital Signs Temp 99 F 06/07/18 06:00 Pulse 87 06/07/18 06:00 Resp 20 06/07/18 06:00 BP 127/63 06/07/18 06:00 Pulse Ox 95 06/07/18 06:00 - Labs Result Diagrams: 06/06/18 17:03 06/06/18 17:03 Labs: Laboratory Results - last 24 hr 06/06/18 06/06/18 06/06/18 17:03 17:03 17:03 WBC 10.6 RBC 3.61 Hgb 11.4 L Hct 35.1 L MCV 97.2 MCH 31.6 MCHC 32.5 RDW 13.2 Plt Count 239 MPV 10.7 Gran % 60.7 Lymph % (Auto) 28.9 [place] % (Auto) 7.6 H Eos % (Auto) 2.4 Baso % (Auto) 0.4 Gran # 6.43 Lymph # (Auto) 3.1 [place] # (Auto) 0.8 H Eos # (Auto) 0.3 Baso # (Auto) 0.04 PT 10.9 INR 0.96 APTT 28.5 Sodium 140 Potassium 4.3 Chloride 107 Carbon Dioxide 27 Anion Gap 11 BUN 23 H Creatinine 1.1 Est GFR ( Amer) > 60 Est GFR (Non-Af Amer) > 60 Random Glucose 106 Calcium 9.2 Total Bilirubin 0.4 AST 23 ALT 28 Alkaline Phosphatase 94 Total Protein 6.9 Albumin 4.1 Globulin 2.9 Albumin/Globulin Ratio 1.4 Urine Color Urine Appearance Urine pH Ur Specific [place] Urine Protein Urine Glucose (UA) Urine Ketones Urine Blood Urine Nitrate Urine Bilirubin Urine Urobilinogen Ur Leukocyte Esterase 06/06/18 18:45 WBC RBC Hgb Hct MCV MCH MCHC RDW Plt Count MPV Gran % Lymph % (Auto) [place] % (Auto) Eos % (Auto) Baso % (Auto) Gran # Lymph # (Auto) [place] # (Auto) Eos # (Auto) Baso # (Auto) PT INR APTT Sodium Potassium Chloride Carbon Dioxide Anion Gap BUN Creatinine Est GFR ( Amer) Est GFR (Non-Af Amer) Random Glucose Calcium Total Bilirubin AST ALT Alkaline Phosphatase Total Protein Albumin Globulin Albumin/Globulin Ratio Urine Color Yellow Urine Appearance Clear Urine pH 7.5 Ur Specific [place] 1.020 Urine Protein Negative Urine Glucose (UA) Negative Urine Ketones Negative Urine Blood Negative Urine Nitrate Negative Urine Bilirubin Negative Urine Urobilinogen 0.2 Ur Leukocyte Esterase Negative Assessment & Plan - Assessment and Plan (Free Text) Assessment: 72 y/o M patient seen and evaluated at the bedside for B/L scabs with cellulitis Plan: Patient seen and evaluated at the bedside with dr. Merritt. Plan discussed in details with attending Dr. Merritt. Chart, labs and vitals reviewed; Afebrile, WBCs 10.6 Patient advised to stop scratching his legs Patient expressed verbal understanding. Continue antibiotics podiatry will follow up the patient while in house.
[2018-06-07] MEDS ORDERED: Non Formulary Medication (Simvastatin [Zocor] 1 TAB) PO SCH (10:00)
[2018-06-07] MEDS ORDERED: SIMVASTATIN PO SCH (10:00)
[2018-06-07] MEDS: cefTRIAXone 1 gm 1 GM/100 ML BAG IVPB SCH (10:20)
[2018-06-07] MEDS: Pantoprazole 40 mg EC Tab PO SCH (10:21)
[2018-06-07] MEDS: buPROPion 300 mg/24 Hours XL Tab PO SCH (10:21)
--- NOTE | 2018-06-07 10:32 | CP.PCM.APN ---
Subjective - Date & Time of Evaluation Date of Evaluation: 06/07/18 Time of Evaluation: 10:10 - Subjective Subjective: Pt seen and examined at bedside. He is in no acute distress. Objective - Vital Signs/Intake and Output Vital Signs (last 24 hours): Temp Pulse Resp BP Pulse Ox 99 F 87 20 127/63 95 06/07/18 06:00 06/07/18 06:00 06/07/18 06:00 06/07/18 06:00 06/07/18 06:00 - Medications Medications: Current Medications Aripiprazole (Abilify) 10 mg PO HS [facility]; Protocol Last Admin: 06/06/18 22:39 Dose: 10 mg Aspirin (Aspirin Chewable) 81 mg PO DAILY [facility] Atorvastatin Calcium (Lipitor) 10 mg PO DIN [facility] Benztropine Mesylate (Cogentin) 1 mg PO BID [facility] Last Admin: 06/06/18 20:28 Dose: 1 mg Bupropion HCl (Wellbutrin Xl) 300 mg PO DAILY [facility] Clonazepam (Klonopin) 1 mg PO BID [facility]; Protocol Last Admin: 06/06/18 20:28 Dose: 1 mg Fluoxetine HCl (Prozac) 20 mg PO DAILY [facility] Furosemide (Lasix) 40 mg IVP DAILY [facility] Ceftriaxone Sodium (Rocephin 1 Gram Ivpb) 1 gm in 100 mls @ 100 mls/hr IVPB DAILY [facility]; Protocol Losartan Potassium (Cozaar) 100 mg PO DAILY [facility] Pantoprazole Sodium (Protonix Ec Tab) 40 mg PO 0600 [facility] - Labs Labs: 06/06/18 17:03 06/06/18 17:03 PT 10.9 SECONDS (9.4-12.5) 06/06/18 17:03 INR 0.96 06/06/18 17:03 APTT 28.5 Seconds (25.1-36.5) 06/06/18 17:03 - Constitutional Appears: No Acute Distress, Unkempt - Head Exam Head Exam: ATRAUMATIC - Eye Exam Eye Exam: Normal appearance - ENT Exam ENT Exam: Normal Exam - Cardiovascular Exam Cardiovascular Exam: REGULAR RHYTHM, +S1, +S2 - GI/Abdominal Exam GI & Abdominal Exam: Soft, Normal Bowel Sounds - Rectal Exam Rectal Exam: Deferred - Extremities Exam Additional comments: + erythema on bilateral lower ext w/ swelling R>L + erythematous, flat, annular lesions noted on mg lower ext - Neurological Exam Neurological Exam: Alert, Awake, Oriented x3 - Psychiatric Exam Psychiatric exam: Normal Affect Assessment and Plan - Assessment and Plan (Free Text) Assessment: pt is a 73 year old male w/ pmhx of HTN, HLD, lung tumor, anxiety and aurelia izophrenia who presented in ED c/o bilateral leg swelling. Patient reports right leg is worse than left. States he went to see his PMD, who sent him here to the ER to be evaluated. He is currently being treated for cellulitis on his lower ext. Impressions Extremity Ultrasound 06/06/18 14:20 IMPRESSION: No sonographic evidence for deep venous thrombosis in the visualized segments of both lower extremities. Chest X-Ray 06/06/18 15:51 IMPRESSION: No active disease. Plan: On Rocephin IV Podiatry and Psych on consult Meds per JUL Will continue to follow
--- NOTE | 2018-06-07 20:39 | CON ---
DATE: 06/07/2018 HISTORY OF PRESENT ILLNESS: The patient is a 73-year-old single white male, who carries with him a diagnosis of schizoaffective disorder. He had come to the hospital with cellulitis and right leg swelling. He had been complaining of numbness, tingling, and pain. He had been given a supportive stocking by Dr. Merritt several weeks ago, but never removed them. Concern has been expressed in my conversation with Dr. Branch and my own observations about the patient's personal sanitation, as he has presented either disheveled or malodorous to both of our offices in the past. He has been under my care for approximately 2 months now since the usp of his long-term psychiatrist, Dr. Carroll. The patient's ability to live independently, tidily and to pursue normative hygienic standards are questionable. The patient medically suffers from hypertension, hyperlipidemia, nasal fracture from a fall last year and has a history of a resected lung tumor. He has been maintained on Klonopin 1 mg b.i.d., Zocor 40 mg, Protonix 40 mg, Prozac 20, Cogentin 1 mg b.i.d., and aspirin. The patient resides by himself. He lives on his father's estate. He is worried, however, that the executive of his estate, a cousin who lives in [place], [place], is himself in his 70s and frail with illness. At my last session with him last week, the possibility of speaking to an erisa attorney, who might help him with his concerns and issues of his estate, a halfway was discussed. Presently, the patient is alert, oriented, not overtly psychotic, not depressed, but concerned about his estate. In my discussion with the patient and Dr. Branch, he has agreed to allow for home care and a significant amount of time during the week. PHYSICAL EXAMINATION: VITAL SIGNS: Blood pressure 129/62, temperature 99, pulse 87, respiratory rate 20. LABORATORY DATA: CBC and differential shows hemoglobin 11.4, hematocrit 35.1. The patient's BUN is slightly elevated at 23. DIAGNOSIS: Schizoaffective disorder. We will continue to monitor with you. Moreno Thompson MD/
--- NOTE | 2018-06-07 23:20 | PN ---
DATE: 06/07/2018 SUBJECTIVE: The patient is 73 years old. Seen and examined. Sitting in chair. Seems to be comfortable. Still has bilateral leg swelling with swelling of both feet. Denies any fever or chills. No nausea or vomiting. No diarrhea. PHYSICAL EXAMINATION: VITAL SIGNS: He is febrile, pulse 94, respirations 20, and blood pressure 108/65. LUNGS: Bilateral fair airflow. No rhonchi or crackle. HEART: S1 and S2 audible. ABDOMEN: Soft and nontender. No rebound. No guarding. NEUROLOGIC: The patient is awake, alert and oriented. Communicative. LABORATORY EXAMINATION: WBC 10.6, hemoglobin 11.2, hematocrit 35, platelets 239. Chemistry: Sodium 140, potassium 4.3, chloride 107, CO2 of 27, BUN 23, creatinine 1.1, blood sugar of 106. Blood cultures are negative. Bilateral leg Doppler negative for DVT. ASSESSMENT AND PLAN: 1. Bilateral leg cellulitis and edema. 2. Paranoid schizophrenia. 3. Hypertension. 4. Hyperlipidemia. Plan is to start Ar bandage to both legs with medium pressure. We will follow up complete blood count and comprehensive metabolic panel in the morning. Preston Branch MD
[2018-06-08] MEDS: Pantoprazole 40 mg EC Tab PO SCH (05:51)
[2018-06-08 07:09] LABS: BASO # 0.04 K/mm3 (0.0-2.0); BASO % 0.4 % (0.0-3.0); EOS # 0.4 (0.0-0.7); EOS % 3.5 % (1.5-5.0); GRAN # 6.61 (1.4-6.5); GRAN % 65.2 % (50.0-68.0); LYMPH # 2.5 (1.2-3.4); LYMPH % 25.1 % (22.0-35.0); MEAN CELL VOLUME 97.4 fl (80.0-105.0); MEAN CORPUSCULAR HEMOGLOBIN 31.5 pg (25.0-35.0); MEAN CORPUSCULAR HGB CONC 32.4 g/dl (31.0-37.0); MEAN PLATELET VOLUME 10.5 fl (7.0-11.0); MONO # 0.6 (0.1-0.6); MONO % 5.8 % (1.0-6.0); RBC 3.49 10^6/uL (3.5-6.1); RED CELL DISTRIBUTION WIDTH 13.2 % (11.5-14.5); WHITE BLOOD COUNT 10.1 10^3/uL (4.5-11.0)
[2018-06-08 07:35] LABS: ALB/GLOB RATIO 1.3 (1.1-1.8); ALT/SGPT 35 U/L (7-56); AST/SGOT 69 U/L (17-59); BLOOD UREA NITROGEN 23 mg/dL (7-21); CALCIUM 8.8 mg/dL (8.4-10.5); GFR NON-AFRICAN AMERICAN 54
[2018-06-08] MEDS: cefTRIAXone 1 gm 1 GM/100 ML BAG IVPB SCH (09:59)
--- NOTE | 2018-06-08 12:31 | CP.PCM.APN ---
Subjective - Date & Time of Evaluation Date of Evaluation: 06/08/18 Time of Evaluation: 09:30 - Subjective Subjective: Pt seen and examined at bedside. In no acute distress. Objective - Vital Signs/Intake and Output Vital Signs (last 24 hours): Temp Pulse Resp BP Pulse Ox 97.5 F L 95 H 19 123/82 97 06/08/18 09:00 06/08/18 09:00 06/08/18 09:00 06/08/18 09:59 06/08/18 09:00 Intake and Output: 06/08/18 06/08/18 06:59 18:59 Intake Total 1020 Output Total 1450 Balance -430 - Medications Medications: Current Medications Aripiprazole (Abilify) 10 mg PO HS [facility]; Protocol Last Admin: 06/07/18 21:32 Dose: 10 mg Aspirin (Aspirin Chewable) 81 mg PO DAILY [facility] Last Admin: 06/08/18 09:59 Dose: 81 mg Atorvastatin Calcium (Lipitor) 10 mg PO DIN [facility] Last Admin: 06/07/18 17:53 Dose: 10 mg Benztropine Mesylate (Cogentin) 1 mg PO BID [facility] Last Admin: 06/08/18 09:58 Dose: 1 mg Bupropion HCl (Wellbutrin Xl) 300 mg PO DAILY [facility] Last Admin: 06/07/18 10:21 Dose: 300 mg Clonazepam (Klonopin) 1 mg PO BID [facility]; Protocol Last Admin: 06/07/18 17:53 Dose: 1 mg Fluoxetine HCl (Prozac) 20 mg PO DAILY [facility] Last Admin: 06/08/18 09:59 Dose: 20 mg Furosemide (Lasix) 40 mg IVP DAILY [facility] Last Admin: 06/08/18 09:59 Dose: 40 mg Ceftriaxone Sodium (Rocephin 1 Gram Ivpb) 1 gm in 100 mls @ 100 mls/hr IVPB DAILY [facility]; Protocol Last Admin: 06/08/18 09:59 Dose: 100 mls/hr Losartan Potassium (Cozaar) 100 mg PO DAILY [facility] Last Admin: 06/08/18 09:58 Dose: 100 mg Pantoprazole Sodium (Protonix Ec Tab) 40 mg PO 0600 [facility] Last Admin: 06/08/18 05:51 Dose: 40 mg - Labs Labs: 06/08/18 06:30 06/08/18 06:30 PT 10.9 SECONDS (9.4-12.5) 06/06/18 17:03 INR 0.96 06/06/18 17:03 APTT 28.5 Seconds (25.1-36.5) 06/06/18 17:03 - Constitutional Appears: Well, No Acute Distress - Head Exam Head Exam: ATRAUMATIC, NORMOCEPHALIC - Eye Exam Eye Exam: Normal appearance - ENT Exam ENT Exam: Normal Exam - Neck Exam Neck Exam: Full ROM - Respiratory Exam Respiratory Exam: Clear to Ausculation Bilateral, NORMAL BREATHING PATTERN - Cardiovascular Exam Cardiovascular Exam: REGULAR RHYTHM, +S1, +S2 - GI/Abdominal Exam GI & Abdominal Exam: Soft, Normal Bowel Sounds - Rectal Exam Rectal Exam: Deferred - Extremities Exam Additional comments: + dressing on mg lower ext, c/d/i - Neurological Exam Neurological Exam: Alert, Awake, Oriented x3 Assessment and Plan - Assessment and Plan (Free Text) Assessment: pt is a 73 year old male currently being treated for cellulitis on his lower ext. Plan: On Rocephin IV Podiatry on consult Pending physical therapy TCU evaluation - poss tcu in AM, if accepted Will continue to follow
[2018-06-08] MEDS: buPROPion 300 mg/24 Hours XL Tab PO SCH (12:43)
[2018-06-08] MEDS ORDERED: Iohexol 350 MG/100 ML VIAL ONE (12:47)
--- NOTE | 2018-06-08 17:14 | PN ---
DATE: 06/08/2018 SUBJECTIVE: The patient is 73 years old, seen and examined, sitting in chair, seems to be comfortable, leg swelling seems to have improved. PHYSICAL EXAMINATION VITAL SIGNS: He is afebrile, pulse 95, respirations 19, blood pressure 123/82. LUNGS: Bilateral fair airflow. No rhonchi or crackles. HEART: S1 and S2 audible. ABDOMEN: Soft, obese, nontender. No rebound. No guarding. EXTREMITIES: Bilateral leg +2 edema. He has scratch bri that has partially inflamed, red, warm because of his chronic scratching. NEUROLOGIC: He is awake and alert, able to communicate. LABORATORY EXAM: WBC is 10.1, hemoglobin 11, hematocrit 34, platelets of 215. Chemistry: Sodium 140, potassium 4.1, chloride 104, CO2 of 30, BUN 23, creatinine 1.3, blood sugar of 103. AST 69. Urinalysis is unremarkable. ASSESSMENT: 1. Bilateral leg edema. 2. Bilateral leg cellulitis, improving. 3. schizophrenia. 4. Hypertension. 5. Hyperlipidemia. PLAN: Overall, the patient's outlook was very unkempt, very unhygienic. Because of his psychological thickness, he is unable to take care of himself. He needs serious help at home for his daily living. He needs for his body hygiene and his surrounding. Discussed the case with rn case management and community mental health social worker. They will make arrangement for home health aide, who can take care of his need even if it is few hours to help him for cleaning, bathing and laundry and cooking. The patient seemed to agree. The patient was also evaluated by therapist and recommended for TCU. We will request for TCU evaluation, when accepted, can be transferred to TCU. Preston Branch MD
[2018-06-09] MEDS: Pantoprazole 40 mg EC Tab PO SCH (05:45)
[2018-06-09] MEDS: buPROPion 300 mg/24 Hours XL Tab PO SCH (09:31)
[2018-06-09] MEDS: cefTRIAXone 1 gm 1 GM/100 ML BAG IVPB SCH (09:32)
--- NOTE | 2018-06-09 15:21 | PN ---
DATE: 06/09/2018 SUBJECTIVE: The patient is 73 years old, seen and examined, doing better. Leg swelling seems to be improving, wounds are healing. PHYSICAL EXAMINATION: VITAL SIGNS: He is afebrile. Pulse 80, respirations 18, and blood pressure 135/76. LUNGS: Bilateral fair airflow. No rhonchi or crackles. HEART: S1 and S2 audible. ABDOMEN: Soft and nontender. No rebound and no guarding. NEUROLOGIC: The patient is awake, alert, and oriented, communicative. Blood cultures are negative. ASSESSMENT: 1. Bilateral leg edema with cellulitis, improving. 2. Paranoid schizophrenia. 3. Hypertension. 4. Hyperlipidemia. PLAN: We will continue the patient on current medications. The patient has been declined by TCU. Subacute rehab arrangement was made in , but the patient refused to go there. We will re-evaluate on Monday and make a disposition. Preston Branch MD
[2018-06-10] MEDS: Pantoprazole 40 mg EC Tab PO SCH (05:38)
[2018-06-10] MEDS: buPROPion 300 mg/24 Hours XL Tab PO SCH (10:29)
[2018-06-10] MEDS: cefTRIAXone 1 gm 1 GM/100 ML BAG IVPB SCH (10:29)
--- NOTE | 2018-06-10 12:33 | PN ---
DATE: 06/10/2018 SUBJECTIVE: The patient has no complaints of any chest pain. No shortness of breath. No headaches. PHYSICAL EXAMINATION: VITAL SIGNS: Temperature is 97, pulse is 77, blood pressure 100/64 and respirations 20. GENERAL: The patient is lying in bed, flat, comfortable. HEENT: No oral lesion. Anicteric sclerae. Moist mucosa. NECK: No JVD, adenopathy, or thyromegaly. CARDIOVASCULAR: S1 and S2, regular. No murmurs, rubs, or gallops. LUNGS: Clear to auscultation bilaterally. No wheeze, rales, or rhonchi. ABDOMEN: Bowel sounds are positive, soft, nontender and nondistended. EXTREMITIES: Lower legs are wrapped. LABORATORY DATA: White count of 10.1 and hemoglobin 11. Creatinine is 1.3. ASSESSMENT: 1. Bilateral leg edema with cellulitis. 2. Paranoid schizophrenia. 3. Hypertension. 4. Dyslipidemia. PLAN: The patient is on Abilify for his schizophrenia, this will be continued. He is on aspirin. He is on Losartan for his hypertension. He is on Klonopin for his anxiety. He is receiving Lipitor for dyslipidemia. He is on Prozac as well. He is on Rocephin for his antibiotics for cellulitis. He is on a heart healthy diet. Karel Quinn MD
[2018-06-10 23:12] VITALS: RESP 20
[2018-06-11] MEDS: Pantoprazole 40 mg EC Tab PO SCH (05:18)
[2018-06-11 09:31] VITALS: O2SAT 99
[2018-06-11] MEDS: buPROPion 300 mg/24 Hours XL Tab PO SCH (09:40)
[2018-06-11] MEDS ORDERED: Cefpodoxime (Vantin) 200 mg Tab PO SCH (10:00)
--- NOTE | 2018-06-11 13:04 | CP.PCM.PN ---
Subjective - Date & Time of Evaluation Date of Evaluation: 06/11/18 Time of Evaluation: 12:55 - Subjective Subjective: Podiatry progress note for attending Dr. Merritt; 71 y/o male patient with PMH of HTN, Hyperlipidemia, schizophrenia, anxiety and depression seen and evaluated for multiple small wounds and erythema on both LE. Patient is AAO X 3 and NAD. States he has an ingrown toe nail thats been bothering him. Denies f/n/v/sob. Objective - Vital Signs/Intake and Output Vital Signs (last 24 hours): Temp Pulse Resp BP Pulse Ox 98.2 F 76 20 138/83 99 06/11/18 06:00 06/11/18 06:00 06/11/18 06:00 06/11/18 09:41 06/11/18 06:00 - Medications Medications: Current Medications Aripiprazole (Abilify) 10 mg PO HS [facility]; Protocol Last Admin: 06/10/18 21:24 Dose: 10 mg Aspirin (Aspirin Chewable) 81 mg PO DAILY [facility] Last Admin: 06/11/18 09:41 Dose: 81 mg Atorvastatin Calcium (Lipitor) 10 mg PO DIN [facility] Last Admin: 06/10/18 18:08 Dose: 10 mg Benztropine Mesylate (Cogentin) 1 mg PO BID [facility] Last Admin: 06/11/18 09:40 Dose: 1 mg Bupropion HCl (Wellbutrin Xl) 300 mg PO DAILY [facility] Last Admin: 06/11/18 09:40 Dose: 300 mg Cefpodoxime Proxetil (Vantin) 200 mg PO Q12 [facility] Last Admin: 06/11/18 09:42 Dose: 200 mg Clonazepam (Klonopin) 1 mg PO BID [facility]; Protocol Last Admin: 06/11/18 09:40 Dose: 1 mg Fluoxetine HCl (Prozac) 20 mg PO DAILY [facility] Last Admin: 06/11/18 09:40 Dose: 20 mg Furosemide (Lasix) 40 mg IVP DAILY [facility] Last Admin: 06/11/18 09:41 Dose: 40 mg Hydrocortisone (Cortizone 2.5% Cream) 1 applic TOP BID [facility] Last Admin: 06/10/18 18:09 Dose: 1 applic Losartan Potassium (Cozaar) 100 mg PO DAILY [facility] Last Admin: 06/11/18 09:40 Dose: 100 mg Pantoprazole Sodium (Protonix Ec Tab) 40 mg PO 0600 [facility] Last Admin: 06/11/18 05:18 Dose: 40 mg - Labs Labs: 06/08/18 06:30 06/08/18 06:30 PT 10.9 SECONDS (9.4-12.5) 06/06/18 17:03 INR 0.96 06/06/18 17:03 APTT 28.5 Seconds (25.1-36.5) 06/06/18 17:03 - Constitutional Appears: Well, Non-toxic, No Acute Distress - Head Exam Head Exam: ATRAUMATIC, NORMOCEPHALIC - Eye Exam Eye Exam: Normal appearance Pupil Exam: NORMAL ACCOMODATION - ENT Exam ENT Exam: Mucous Membranes Moist - Extremities Exam Additional comments: B/L LE focused exam: Vasc: DP/PT 2/4 B/L. Cap refill < 3 sec in all digits. temp gradient warm to cool from proximal to distal B/l. Minimal edema noted b/l in dorsum of foot, and leg. Mild erythema noted on both legs Neuro: Gross and protective sensations are intact b/l. Derm:No clinical signs of active infection. Scattered, hard scab covered small wounds scattered on both legs right > left. color changes of the skin (mild erythema) noted on the right side. B/L medial heel is darker than the surrounding skin.. Annular scaly lesions present on both legs right > left. hyperkeratotic skin noted over the lateral border of the right hallucal toe nail, no edema or pus like drainage noted MSK: No Pain on palpating both legs. Muscle power intact 5/5 in all groups B/L. - Neurological Exam Neurological Exam: Alert, Awake Assessment and Plan - Assessment and Plan (Free Text) Assessment: 72 y/o M patient seen and evaluated at the bedside for B/L scabs with cellulitis Plan: Patient seen and evaluated at the bedside with dr. Merritt. Plan discussed in details with attending Dr. Merritt. Chart, labs and vitals reviewed; Afebrile, WBCs 10.1 Patient advised to stop scratching his legs Patient expressed verbal understanding. Continue antibiotics per ID Patient will follow up with Dr. Merritt for partial nail avulsion procedure within a week of discharge; stable for discharge from podiatry point of view podiatry will follow up the patient while in house.
[2018-06-11 14:14] VITALS: BP 101/64; PULSE 94; TEMP 97.5
--- NOTE | 2018-06-11 17:02 | DS ---
HISTORY OF PRESENT ILLNESS: The patient is a 73 years old seen and examined. He was admitted because of increasing swelling. He had erythema in his both feet, multiple infected spot on both legs and both feet. He was very unkempt with foul smelling clothing. He was referred to emergency room for IV antibiotic and further management. The patient remain on IV antibiotics. He was given IV diuretics. He denies any fever or chills. He has been feeling well, was evaluated by Dr. Thompson. The patient apparently unable to take care of himself. He need some help for his grooming and his hygiene and home care so [facility] [place] [facility] social worker will arrange for home health aid couple of hours a week to care of his daily chores and help him out for that. He was doing well. PHYSICAL EXAMINATION: VITAL SIGNS: He is afebrile, pulse 76, respirations 20, blood pressure 138/83. LUNGS: Bilateral fair air flow. No rhonchi or crackles. HEART: S1 and S2 audible. ABDOMEN: Soft, nontender. No rebound. No guarding. EXTREMITIES: Bilateral big toes. He has ingrown toe nails left more than the right. NEUROLOGIC: He is awake, alert, oriented, and communicative. LABORATORY DATA: There is no new lab available today. ASSESSMENT: 1. Bilateral leg cellulitis, improves. 2. Left big toe ingrown toenail. 3. Hypertension. 4. Hyperlipidemia. 5. History of paranoid schizophrenia. PLAN: The patient is being discharged home today. He will be discharged on his usual medication. He will continue Losartan, he will continue Norvasc. He is os Klonopin. We will continue Lasix. He was given prescription of Vantin 200 twice a day for three more days. He will followup with Dr. Merritt and followup with me. Preston Branch MD
== END 2018-06-11 18:35 | disposition home or self-care (01) | DRG 603 ==
LOC: ED 13:36 → ERH 17:56 → 5RNO 20:50
PROVIDERS: ADMIT Internal Medicine; ATTEND Internal Medicine
DX: L03.115 Cellulitis of right lower limb (principal); F25.9 Schizoaffective disorder, unspecified; L03.116 Cellulitis of left lower limb; I10 Essential (primary) hypertension; F41.9 Anxiety disorder, unspecified; E78.5 Hyperlipidemia, unspecified; L60.0 Ingrowing nail; Z85.118 Personal history of other malignant neoplasm of bronchus and lung; Z87.891 Personal history of nicotine dependence